=== PATIENT | female | born 1955 | race Caucasian/White ===

== ENCOUNTER 2019-03-19 19:18 | Observation (INO) | payer OTHER ==
[2019-03-19 20:27] LABS: Urine Blood 2+ (NEG); Urine Glucose NEGATIVE (NEG); Urine Protein 3+ (NEG); Urine Specific Gravity >1.030 (1.005-1.030)
[2019-03-19] MEDS ORDERED: ONDANSETRON 4 MG/2 ML VIAL ONE (20:50)
[2019-03-19] MEDS ORDERED: NA CHLORIDE 0.9% 1,000 ML ONE (20:50)
[2019-03-19] MEDS ORDERED: FAMOTIDINE 20 MG/2 ML VIAL IV ONE (20:51)
[2019-03-19 21:31] LABS: Protime INR 1.11
[2019-03-19 21:39] LABS: ALT/SGPT 22 U/L (12-78); AST/SGOT 15 U/L (15-37); Absolute Lymphocytes (CBC) 2.3 K/uL (0.7-4.9); Albumin 3.9 g/dL (3.4-5.0); Alkaline Phosphatase 152 U/L (45-117); BUN Blood Urea Nitrogen 11 mg/dL (7-18); Basophils % 0.4 % (0-1.3); Bicarbonate 22 mmol/L (21-32); Bilirubin Direct < 0.1 mg/dL (0-0.2); Bilirubin Total 0.2 mg/dL (0.2-1.0); Glucose Level 150 mg/dL (74-106); Hematocrit 28.9 % (36.0-45.0); Lipase 145 U/L (73-393); Lymphocytes % 11.1 % (15.3-44.8); MPV 8.1 fL (7.6-11.3); Magnesium 1.5 mg/dL (1.8-2.4); NT PRO-BNP 26 pg/mL (<125); Potassium 3.6 mmol/L (3.5-5.1); Protein, Total 6.7 g/dL (6.4-8.2); RBC Red Blood Cell Count 3.14 M/uL (3.86-4.86); Sodium Level 137 mmol/L (136-145); Troponin (Emerg Dept Use Only) < 0.02 ng/mL (0.0-0.045)
[2019-03-19] MEDS ORDERED: Magnesium Sulfate 2gm IVPB 2 G/50 ML BAG IV ONE (22:23)
--- NOTE | 2019-03-19 23:07 | EDPHYS ---
Physician Documentation [facility] Name: Jessica Bahena Age: 63 yrs Sex: Female : 1955 Arrival Date: 03/19/2019 Time: 19:21 Bed 8 Private MD: RAIN Physician Mehdi Rose HPI: 03/19 20:42 This 63 yrs old Female presents to ER via Ambulatory with complaints of james Nausea/Vomiting, Dizziness. 20:42 The patient presents to the emergency department with nausea, vomiting, diarrhea, that james is intermittent. Onset: The symptoms/episode began/occurred 2 day(s) ago. Possible causes: unknown. The symptoms are aggravated by nothing. The symptoms are alleviated by nothing. Associated signs and symptoms: Pertinent positives: diarrhea, nausea, vomiting. Severity of symptoms: At their worst the symptoms were moderate in the emergency department the symptoms are unchanged. The patient has not experienced similar symptoms in the past. Historical: - Allergies: 19:40 No Known Allergies; ak1 - Home Meds: 19:40 levothyroxine 75 mcg tab 1 tab once daily [Active]; metformin 1,000 mg Oral tab 1 tab 2 ak1 times per day [Active]; furosemide 20 mg Oral tab 1 tab once daily [Active]; pantoprazole 20 mg oral TbEC 1 tab once daily [Active]; Zofran (as hydrochloride) 8 mg Oral tab [Active]; promethazine 25 mg Oral tab 1 tab once daily [Active]; dexamethasone 4 mg Oral tab [Active]; Magnesium Oxide Oral [Active]; EMLA Topical [Active]; Probiotic oral oral [Active]; lisinopril 5 mg Oral tab 1 tab once daily [Active]; atorvastatin oral oral [Active]; chemo [Active]; - PMHx: 19:40 Diabetes - NIDDM; Hypothyroidism; Hyperlipidemia; High Cholesterol; breast cancer - tx ak1 at [facility]; - PSHx: 19:40 ; Hernia repair; Lithotripsy; port o cath; ak1 - Immunization history:: Adult Immunizations unknown. - Social history:: Smoking status: Patient/guardian denies using tobacco. - Ebola Screening: : No symptoms or risks identified at this time. ROS: 20:46 Constitutional: Negative for fever, chills, and weight loss, Eyes: Negative for injury, james pain, redness, and discharge, ENT: Negative for injury, pain, and discharge, Neck: Negative for injury, pain, and swelling, Cardiovascular: Negative for chest pain, palpitations, and edema, Respiratory: Negative for shortness of breath, cough, wheezing, and pleuritic chest pain, Back: Negative for injury and pain, : Negative for injury, bleeding, discharge, and swelling, MS/Extremity: Negative for injury and deformity, Psych: Negative for depression, anxiety, suicide ideation, homicidal ideation, and hallucinations, Allergy/Immunology: Negative for hives, rash, and allergies, Endocrine: Negative for neck swelling, polydipsia, polyuria, polyphagia, and marked weight changes, Hematologic/Lymphatic: Negative for swollen nodes, abnormal bleeding, and unusual bruising. 20:46 Abdomen/GI: Positive for abdominal pain, nausea, vomiting, diarrhea, abdominal cramps. 20:46 Skin: Positive for pallor. 20:46 Neuro: Positive for near syncope, weakness. Exam: 20:46 Constitutional: This is a well developed, well nourished patient who is awake, alert, james and in no acute distress. Head/Face: Normocephalic, atraumatic. Eyes: Pupils equal round and reactive to light, extra-ocular motions intact. Lids and lashes normal. Conjunctiva and sclera are non-icteric and not injected. Cornea within normal limits. Periorbital areas with no swelling, redness, or edema. ENT: Nares patent. No nasal discharge, no septal abnormalities noted. Tympanic membranes are normal and external auditory canals are clear. Oropharynx with no redness, swelling, or masses, exudates, or evidence of obstruction, uvula midline. Mucous membranes moist. Neck: Trachea midline, no thyromegaly or masses palpated, and no cervical lymphadenopathy. Supple, full range of motion without nuchal rigidity, or vertebral point tenderness. No Meningismus. Chest/axilla: Normal chest wall appearance and motion. Nontender with no deformity. No lesions are appreciated. Respiratory: Lungs have equal breath sounds bilaterally, clear to auscultation and percussion. No rales, rhonchi or wheezes noted. No increased work of breathing, no retractions or nasal flaring. Abdomen/GI: Soft, non-tender, with normal bowel sounds. No distension or tympany. No guarding or rebound. No evidence of tenderness throughout. Back: No spinal tenderness. No costovertebral tenderness. Full range of motion. Female : Normal external genitalia. MS/ Extremity: Pulses equal, no cyanosis. Neurovascular intact. Full, normal range of motion. Neuro: Awake and alert, GCS 15, oriented to person, place, time, and situation. Cranial nerves II-XII grossly intact. Motor strength 5/5 in all extremities. Sensory grossly intact. Cerebellar exam normal. Normal gait. Psych: Awake, alert, with orientation to person, place and time. Behavior, mood, and affect are within normal limits. 20:46 Cardiovascular: Rate: tachycardic, Rhythm: regular, Pulses: Pulses are 4+ in bilateral radial, brachial, femoral, popliteal, posterior tibial and and dorsalis pedis arteries.. Heart sounds: normal, Edema: is not appreciated, JVD: is not appreciated. 20:46 Skin: Appearance: Color: pale, abscess, not appreciated, cellulitis, is not appreciated, induration, is not appreciated. 20:46 Neuro: Orientation: is normal, appropriate for stated age, no acute changes, Mentation: is normal, appropriate for stated age, no acute changes, Memory: is normal, appropriate for stated age, no acute changes, Cranial nerves: grossly normal, is grossly normal based on the patient's age, no acute changes, Cerebellar function: is grossly normal, is grossly normal based on the patient's age, no acute changes, Motor: is normal, is grossly normal based on the patient's age, no acute changes, Gait: not tested. seizure activity, is not displayed by the patient. Vital Signs: 19:32 BP 99 / 63; Pulse 102; Resp 18; Temp 97.6(TE); Pulse Ox 99% on R/A; Weight 83.91 kg ak1 (R); Height 5 ft. 1 in. (154.94 cm) (R); Pain 0/10; 21:50 BP 115 / 52; Pulse 89; Resp 16 S; Pulse Ox 100% on R/A; bb 23:27 BP 108 / 56; Pulse 99; Resp 20 S; Pulse Ox 100% on R/A; bb 03/20 00:12 BP 118 / 52; Pulse 91; Resp 16 S; Temp 97.9(O); Pulse Ox 100% on R/A; bb 03/19 19:32 Body Mass Index 34.96 (83.91 kg, 154.94 cm) ak1 MDM: 03/19 20:16 Patient medically screened. [facility] 20:48 Data reviewed: vital signs, nurses notes, lab test result(s), EKG, radiologic studies, james plain films. 03/19 20:25 Order name: Urine Dipstick--Ancillary (enter results); Complete Time: 20:40 em1 03/19 20:42 Order name: Basic Metabolic Panel; Complete Time: 21:52 [facility] 03/19 20:42 Order name: CBC with Diff [facility] 03/19 20:42 Order name: LFT's; Complete Time: 21:52 [facility] 03/19 20:42 Order name: Magnesium; Complete Time: 21:52 [facility] 03/19 20:42 Order name: NT PRO-BNP; Complete Time: 21:52 [facility] 03/19 20:42 Order name: PT-INR; Complete Time: 21:52 [facility] 03/19 20:42 Order name: Troponin (emerg Dept Use Only); Complete Time: 21:52 [facility] 03/19 20:42 Order name: Lipase; Complete Time: 21:52 [facility] 03/19 20:42 Order name: Urine Culture [facility] 03/19 20:42 Order name: Type And Screen [facility] 03/19 21:52 Order name: Manual Differential [facility] 03/19 21:54 Order name: Blood Culture Adult (2) [facility] 03/19 21:54 Order name: Lactate; Complete Time: 22:57 [facility] 03/19 20:42 Order name: Abdomen Acute Series XRAY [facility] 03/19 21:54 Order name: Procalcitonin [facility] 03/19 23:01 Order name: CT Abd/Pelvis - Without Contrast [facility] 03/20 00:02 Order name: Comprehensive Metabolic Panel [facility] 03/20 00:02 Order name: Comprehensive Metabolic Panel [facility] 03/20 00:02 Order name: Protime (+INR) [facility] 03/20 00:02 Order name: Protime (+INR) [facility] 03/20 00:02 Order name: PTT, Activated Partial Thromb [facility] 03/20 00:03 Order name: PTT, Activated Partial Thromb [facility] 03/19 20:42 Order name: EKG; Complete Time: 20:43 [facility] 03/19 20:42 Order name: Cardiac monitoring; Complete Time: 21:19 [facility] 03/19 20:42 Order name: EKG - Nurse/Tech; Complete Time: : [facility] 03/19 20:42 Order name: IV Saline Lock; Complete Time: : [facility] 03/19 20:42 Order name: Labs collected and sent; Complete Time: : [facility] 03/19 20:42 Order name: O2 Per Protocol; Complete Time: : [facility] 03/19 20:42 Order name: O2 Sat Monitoring; Complete Time: : [facility] 03/20 00:02 Order name: CONS Pharmacy Consult EDMS 03/20 00:02 Order name: Regular EDMS Administered Medications: 20:05 Drug: Zofran 4 mg Route: IVP; Site: [facility]; 23:01 Follow up: Response: No adverse reaction bb 20:05 Drug: NS 0.9% 500 ml Route: IV; Rate: bolus; [facility]; 22:56 Follow up: IV Status: Completed infusion; IV Intake: 500ml [facility] 23:02 Follow up: IV Status: Completed infusion; IV Intake: 500ml 21:05 Drug: Pepcid 20 mg Route: IVP; Site: [facility] [place]; bb 23:01 Follow up: Response: No adverse reaction bb 22:21 Drug: Magnesium Sulfate 2 grams Route: IVPB; Infused Over: 2 hrs; [facility]; 23:20 Follow up: IV Status: Completed infusion; IV Intake: 100ml bb 22:56 Drug: NS 0.9% 1000 ml Route: IV; Rate: 125 ml/hr; Site: [facility] [place]; [facility] 03/20 01:56 Follow up: IV Status: Infusion continued upon admission; IV Intake: 250ml 03/19 23:24 Drug: levofloxacin 500 mg Volume: 100 ml; Route: IVPB; Infused Over: 60 mins; [facility]; 03/20 00:20 Follow up: IV Status: Completed infusion; IV Intake: 100ml 03/19 23:24 Drug: Flagyl 500 mg Volume: 100 ml; Route: IVPB; Rate: 200 ml/hr; Infused Over: 30 bb mins; Site: [facility] [place]; 03/20 00:00 Follow up: IV Status: Completed infusion; IV Intake: 100ml Disposition: 03/19/19 23:06 Hospitalization ordered by Himanshu Wilson for Inpatient Admission. Preliminary diagnosis are Abdominal tenderness, Vomiting, Diarrhea, unspecified, Elevated white blood cell count, Unspecified kidney failure, Type 2 diabetes mellitus, Weakness - breast cancer, chemotherapy, Volume depletion. - Bed requested for Telemetry/MedSurg (Inpatient). - Status is Inpatient Admission. bb - Condition is Fair. - Problem is new. - Symptoms have improved. UTI on Admission? No Signatures: Dispatcher [employer] EDMS Daniela Chino RN RN Mehdi Magallanes MD MD cha Ballard, Brenda RN RN Amelia Cavanaugh, RN RN tl1 Elena Sanchez RN RN ak1 Corrections: (The following items were deleted from the chart) 00:02 03/19 23:06 Hospitalization Ordered by Himanshu Wilson MD for Inpatient Admission. Preliminary diagnosis is Abdominal tenderness; Vomiting; Diarrhea, unspecified; Elevated white blood cell count; Unspecified kidney failure; Type 2 diabetes mellitus; Weakness - breast cancer, chemotherapy; Volume depletion. Bed requested for Telemetry/MedSurg (Inpatient). Status is Inpatient Admission. Condition is Fair. Problem is new. Symptoms have improved. UTI on Admission? No. james 03/20 01:57 00:02 03/19/2019 23:06 Hospitalization Ordered by Himanshu Wilson MD for Inpatient bb Admission. Preliminary diagnosis is Abdominal tenderness; Vomiting; Diarrhea, unspecified; Elevated white blood cell count; Unspecified kidney failure; Type 2 diabetes mellitus; Weakness - breast cancer, chemotherapy; Volume depletion. Bed requested for Telemetry/MedSurg (Inpatient). Status is Inpatient Admission. Condition is Fair. Problem is new. Symptoms have improved. UTI on Admission? No. mw
--- NOTE | 2019-03-19 23:07 | ER ---
Nurse's Notes [facility] Name: Jessica Bahena Age: 63 yrs Sex: Female : 1955 Arrival Date: 03/19/2019 Time: 19:21 Bed 8 Private MD: Diagnosis: Abdominal tenderness;Vomiting;Diarrhea, unspecified;Elevated white blood cell count;Unspecified kidney failure;Type 2 diabetes mellitus;Weakness-breast cancer, chemotherapy;Volume depletion Presentation: 03/19 19:32 Presenting complaint: Patient states: N/V/D abd pain since Sunday. pt started new ak1 chemo meds on Sunday. pt c/o leg swelling since Sunday. Transition of care: patient was not received from another setting of care. Onset of symptoms is unknown. Risk Assessment: Do you want to hurt yourself or someone else? Patient reports no desire to harm self or others. Initial Sepsis Screen: Does the patient meet any 2 criteria? No. Patient's initial sepsis screen is negative. Does the patient have a suspected source of infection? No. Patient's initial sepsis screen is negative. Care prior to arrival: None. 19:32 Method Of Arrival: Ambulatory ak1 19:32 Acuity: STAS 3 ak1 Triage Assessment: 19:32 General: Appears in no apparent distress. Behavior is calm, cooperative. Pain: ak1 Complains of pain in abdomen. GI: Reports lower abdominal pain, upper abdominal pain, bloating, diarrhea, nausea, vomiting, since Sunday. Historical: - Allergies: 19:40 No Known Allergies; ak1 - Home Meds: 19:40 levothyroxine 75 mcg tab 1 tab once daily [Active]; metformin 1,000 mg Oral tab 1 tab 2 ak1 times per day [Active]; furosemide 20 mg Oral tab 1 tab once daily [Active]; pantoprazole 20 mg oral TbEC 1 tab once daily [Active]; Zofran (as hydrochloride) 8 mg Oral tab [Active]; promethazine 25 mg Oral tab 1 tab once daily [Active]; dexamethasone 4 mg Oral tab [Active]; Magnesium Oxide Oral [Active]; EMLA Topical [Active]; Probiotic oral oral [Active]; lisinopril 5 mg Oral tab 1 tab once daily [Active]; atorvastatin oral oral [Active]; chemo [Active]; - PMHx: 19:40 Diabetes - NIDDM; Hypothyroidism; Hyperlipidemia; High Cholesterol; breast cancer - tx ak1 at [facility]; - PSHx: 19:40 ; Hernia repair; Lithotripsy; port o cath; ak1 - Immunization history:: Adult Immunizations unknown. - Social history:: Smoking status: Patient/guardian denies using tobacco. - Ebola Screening: : No symptoms or risks identified at this time. Screenin:33 Abuse screen: Denies threats or abuse. Nutritional screening: No deficits noted. bb Tuberculosis screening: No symptoms or risk factors identified. Fall Risk None identified. Assessment: 20:33 General: Appears in no apparent distress. Behavior is calm, cooperative. Pain: bb Complains of pain in abdomen. Neuro: Level of Consciousness is awake, alert, obeys commands, Oriented to person, place, time, situation. Cardiovascular: Heart tones S1 S2 present. Respiratory: Airway is patent Respiratory effort is even, unlabored, Breath sounds are clear bilaterally. GI: Abdomen is round Reports diarrhea. Derm: Skin is dry, Skin is pale, Skin temperature is warm. Musculoskeletal: Circulation, motion, and sensation intact. 21:30 Reassessment: No changes from previously documented assessment. Patient is alert, bb oriented x 3, equal unlabored respirations, skin warm/dry/pink. IV site intact, family at bedside. 22:03 Reassessment: lab called for blood cultures. bb 23:25 Reassessment: Patient is alert, oriented x 3, equal unlabored respirations, skin bb warm/dry/pink. pt requesting food and given snack per Dr Rose, pt's IV intact, patent with fluids infusing, notified of decision for admission pt verbalized understanding of and agrees to plan of care, awaiting room assignment. 03/20 00:13 Reassessment: Patient is alert, oriented x 3, equal unlabored respirations, skin bb warm/dry/pink. IV site intact, patent with fluids infusing. 00:18 Reassessment: report called to Beverly SPEAR for room 219. bb Vital Signs: 03/19 19:32 BP 99 / 63; Pulse 102; Resp 18; Temp 97.6(TE); Pulse Ox 99% on R/A; Weight 83.91 kg ak1 (R); Height 5 ft. 1 in. (154.94 cm) (R); Pain 0/10; 21:50 BP 115 / 52; Pulse 89; Resp 16 S; Pulse Ox 100% on R/A; bb 23:27 BP 108 / 56; Pulse 99; Resp 20 S; Pulse Ox 100% on R/A; bb 03/20 00:12 BP 118 / 52; Pulse 91; Resp 16 S; Temp 97.9(O); Pulse Ox 100% on R/A; bb 03/19 19:32 Body Mass Index 34.96 (83.91 kg, 154.94 cm) ak1 ED Course: 03/19 19:21 Patient arrived in ED. ds1 19:32 Arm band placed on Patient placed in waiting room, Patient notified of wait time. ak1 19:33 Triage completed. ak1 20:16 Mehdi Rose MD is Attending Physician. [facility] 20:32 Haven Acosta RN is Primary Nurse. 20:33 Patient has correct armband on for positive identification. Placed in gown. Bed in low bb position. Call light in reach. Side rails up X 1. Adult w/ patient. postmaster on. Pulse ox on. NIBP on. Warm blanket given. 20:33 Accessed Port-a-Cath. using accessed w/ # 20 Romo needle, ,sterile technique, per hospital protocol. Good blood return. Flushes easily. 21:18 Abdomen Acute Series XRAY In Process Unspecified. EDMS 21:48 Notified ED physician of a critical lab result(s). wbc of 20.5. 23:01 Himanshu Wilson MD is Hospitalizing Provider. [facility] 23:27 No provider procedures requiring assistance completed. Patient admitted, IV remains in bb place. 23:47 CT completed. Patient tolerated procedure well. Patient moved to CT via stretcher. Patient moved back from CT. 23:54 CT Abd/Pelvis - Without Contrast In Process Unspecified. EDMS Administered Medications: 20:05 Drug: Zofran 4 mg Route: IVP; Site: Port-a-cath; 23:01 Follow up: Response: No adverse reaction 20:05 Drug: NS 0.9% 500 ml Route: IV; Rate: bolus; Site: Port-a-cath; 22:56 Follow up: IV Status: Completed infusion; IV Intake: 500ml tl1 23:02 Follow up: IV Status: Completed infusion; IV Intake: 500ml bb 21:05 Drug: Pepcid 20 mg Route: IVP; Site: [facility]; 23:01 Follow up: Response: No adverse reaction bb 22:21 Drug: Magnesium Sulfate 2 grams Route: IVPB; Infused Over: 2 hrs; Site: [facility]; 23:20 Follow up: IV Status: Completed infusion; IV Intake: 100ml bb 22:56 Drug: NS 0.9% 1000 ml Route: IV; Rate: 125 ml/hr; Site: [facility]-a-[facility]; 1 03/20 01:56 Follow up: IV Status: Infusion continued upon admission; IV Intake: 250ml bb 03/19 23:24 Drug: levofloxacin 500 mg Volume: 100 ml; Route: IVPB; Infused Over: 60 mins; Site: [facility]; 03/20 00:20 Follow up: IV Status: Completed infusion; IV Intake: 100ml 03/19 23:24 Drug: Flagyl 500 mg Volume: 100 ml; Route: IVPB; Rate: 200 ml/hr; Infused Over: 30 bb mins; Site: [facility]; 03/20 00:00 Follow up: IV Status: Completed infusion; IV Intake: 100ml bb Intake: 03/19 22:56 IV: 500ml; Total: 500ml. tl1 23:02 IV: 500ml; Total: 1000ml. bb 23:20 IV: 100ml; Total: 1100ml. bb 03/20 00:00 IV: 100ml; Total: 1200ml. bb 00:20 IV: 100ml; Total: 1300ml. bb 01:56 IV: 250ml; Total: 1550ml. bb Outcome: 03/19 23:06 Decision to Hospitalize by Provider. james 23:27 Instructed on the need for admit. bb 03/20 00:17 Admitted to Tele accompanied by tech, via wheelchair, room 219, with chart, Report bb called to Beverly SPEAR Condition: stable 01:57 Patient left the ED. bb Signatures: Dispatcher [employer] EDMehdi Chavarria MD MD cha Hagler, Ervin eh Chretien, Felicia, RN RN Charlene Solorzano ds1 Haven Acosta RN RN bb Amelia Berg RN RN tl1 Laura, Elena, RN RN ak1
[2019-03-19] MEDS ORDERED: METRONIDAZOLE 500mg IVPB 500 MG/100 ML BAG IV ONE (23:10)
[2019-03-19] MEDS ORDERED: Levofloxacin500mg IV 500 MG/100 ML BAG IV ONE (23:10)
[2019-03-19 23:32] LABS: Blood Morphology Comment NOT SEEN (NOT SEEN); Platelet Estimate ADEQ
[2019-03-19] MEDS: NA CHLORIDE 0.9% 1,000 ML IV SCH (23:45)
[2019-03-19] MEDS ORDERED: ONDANSETRON 4 MG/2 ML VIAL IV PRN (23:56)
[2019-03-19] MEDS ORDERED: ACETAMINOPHEN 500 MG TAB PO PRN (23:56)
[2019-03-19] MEDS ORDERED: MORPHINE 2 MG/ML SYR IV PRN (23:56)
[2019-03-20] MEDS ORDERED: Levofloxacin500mg IV 500 MG/100 ML BAG IV SCH (01:00)
[2019-03-20] MEDS: NA CHLORIDE 0.9% 1,000 ML IV SCH ×2 (01:59→10:19)
[2019-03-20 02:08] VITALS: BMI 35.7
[2019-03-20 02:54] VITALS: O2SAT 100
[2019-03-20] MEDS ORDERED: PIPER/TAZO/NS 3.375gm 3.375 GM/100 ML BAG ONE (03:08)
[2019-03-20 05:53] LABS: Absolute Lymphocytes (CBC) 2.3 K/uL (0.7-4.9); Basophils % 0.4 % (0-1.3); Hematocrit 25.7 % (36.0-45.0); Lymphocytes % 13.8 % (15.3-44.8); MPV 7.7 fL (7.6-11.3); RBC Red Blood Cell Count 2.77 M/uL (3.86-4.86)
[2019-03-20 05:58] LABS: Protime INR 1.04
[2019-03-20] MEDS ORDERED: PIPER/TAZO/NS 3.375gm 3.375 GM/100 ML BAG IVPB SCH ×2 (06:00→11:00)
[2019-03-20 06:24] LABS: Albumin 3.3 g/dL (3.4-5.0); Bilirubin Total 0.2 mg/dL (0.2-1.0); Potassium 3.6 mmol/L (3.5-5.1)
--- NOTE | 2019-03-20 07:21 | RAD REPORT ---
EXAM DESCRIPTION: RAD - Abdomen Acute Series - 03/19/2019 9:16 pm CLINICAL HISTORY: ABD PAIN COMPARISON: Chest Single View dated 07/07/2017; CHEST SINGLE VIEW dated 11/02/2008; Abdomen Pelvis W o Contrast dated 03/19/2019 None. FINDINGS: Lungs are clear. Heart size and pulmonary vasculature are normal. No pleural effusion, pne umothorax or other acute cardiopulmonary process seen. Left-sided Port-A-Cath has been placed since 2017 study. No suspicious interval change. Small bowel loops are prominent but not dilated. No colon dilatation. Stomach is normal size. Phlebol iths are present in the pelvis. No bowel obstruction, free air or other acute findings. No suspicious calcifications. Lower lumbar degenerative changes are present. IMPRESSION: No acute finding on chest examination. No bowel obstruction, free air or emergent finding suspected. Small bowel pattern is prominent favoring mild ileus or gastroenteritis.
--- NOTE | 2019-03-20 10:08 | P.HP ---
Certification for Inpatient Patient admitted to: Inpatient With expected LOS: >2 Midnights Patient will require the following post-hospital care: None Practitioner: I am a practitioner with admitting privileges, knowledge of patient current condition, hospital course, and medical plan of care. Services: Services provided to patient in accordance with Admission requirements found in Title 42 Section 412.3 of the Code of Federal Regulations Patient History Date of Service: 03/20/19 Reason for admission: NEAR SYNCOPE History of Present Illness: PATIENT IS A 63-YEAR-OLD FEMALE CAME TO THE HOSPITAL AFTER FEELING FAINT. SHE WAS AT WORK AND HAD A NEAR SYNCOPAL EVENT. SHE HAS BEEN FEELING POORLY FOR THE LAST FEW WEEKS. SHE HAS BEEN GETTING TREATMENT FOR BREAST CANCER. SHE STATES THAT HER CANCER IS [place] POSITIVE, [place] POSITIVE, AND HERCEPTIN RECEPTOR POSITIVE. SHE HAS BEEN GETTING CHEMOTHERAPY BUT THIS WAS WHICH RECENTLY TO ADRIAMYCIN. SHE HAS RECEIVED TAXOL IN THE PAST. SHE STATES THAT HER BREAST CANCER HAS SHRUNK QUITE A BIT. SHE HAS BEEN FEELING SOME PALPITATIONS WELL. SHE WAS FEELING POORLY A FEW DAYS AGO AND WAS THINKING ABOUT COMING INTO THE ER BECAUSE OF CHEST PAIN AND LOWER BACK PAIN. HER SYMPTOMS FINALLY SUBSIDED SO SHE DECIDED TO STAY HOME. WHICH SHE BECAME LIGHTHEADED AT WORK SHE DECIDED TO COME INTO THE EMERGENCY ROOM FOR FURTHER WORKUP. SHE WILL GET A ECHOCARDIOGRAM. SHE SHOW ME PICTURES ON HER PHONE WERE SHE HAS HAD ANASARCA A WEEK AGO. THE FLUID HAS IMPROVED SOMEWHAT. WILL GET DOPPLERS OF HER LOWER EXTREMITIES WELL. SHE ALSO RECENTLY RECEIVED NEULASTA AFTER CHEMO WHICH IS PROBABLY THE CAUSE OF HER WHITE BLOOD CELL COUNT BEING ELEVATED. Allergies No Known Allergies Allergy (Verified 03/20/19 02:10) Home Medications: Atorvastatin Calcium 40 mg PO DAILY 03/20/19 Furosemide 20 mg PO DAILY PRN 03/20/19 Lactobacillus Combo No.10 [Probiotic] 1 cap PO DAILY 03/20/19 Levothyroxine Sodium 1 tab PO 0630 03/20/19 Lisinopril [Prinivil*] 1 tab PO DAILY 03/20/19 Magnesium Oxide [Magnesium] 1 tab PO DAILY 03/20/19 Metformin ER [Glucophage ER*] 1 gm PO BID 03/20/19 Multivit-Min/Folic Acid/Vit K1 [Multi For Her 50 Plus Softgel] 1 cap PO DAILY Ondansetron [Ondansetron Odt] 8 mg PO Q8H PRN 03/20/19 Pantoprazole Sodium [Protonix] 1 tab PO DAILY 03/20/19 Promethazine HCl 25 mg PO Q6H PRN 03/20/19 dexAMETHasone [Dexamethasone] 1 tab PO TID 03/20/19 - Past Medical/Surgical History Has patient received pneumonia vaccine in the past: No Diabetic: Yes -: Hypothyroidism -: Diabetes mellitus type 2, diet controlled -: History of hypertension -: Obesity -: C-sections x4 -: Umbilical hernia repair Psychosocial/ Personal History: Patient is . She has 4 children. She works several jobs - Family History Father Medical History: Diabetes - Social History Smoking Status: Never smoker Alcohol use: Yes CD- Drugs: No Caffeine use: Yes Place of Residence: Home Review of Systems 10-point ROS is otherwise unremarkable Physical Examination - Vital Signs Temperature: 97.2 F Blood Pressure: 97/53 Pulse: 83 Respirations: 14 Pulse Ox (%): 100 - Physical Exam General: Alert, In no apparent distress, Oriented x3 HEENT: Atraumatic, PERRLA, Mucous membr. moist/pink, EOMI, Sclerae nonicteric Neck: Supple, 2+ carotid pulse no bruit, No LAD, Without JVD or thyroid abnormality Respiratory: Clear to auscultation bilaterally, Normal air movement Cardiovascular: Regular rate/rhythm, Normal S1 S2, No rubs, No murmurs Gastrointestinal: Normal bowel sounds, Soft and benign, Non-distended, No tenderness Musculoskeletal: No clubbing, No swelling, No tenderness Integumentary: No rashes Neurological: Normal gait, Normal speech, Normal strength at 5/5 x4 extr, Normal tone, Sensation intact, Cranial nerves 3-12 intact, Normal affect Lymphatics: No axilla or inguinal lymphadenopathy - Studies Laboratory Data (last 24 hrs) 03/19/19 20:30: PT 13.1 H, INR 1.11 03/19/19 20:30: WBC 20.5 H*, Hgb 10.1 L, Hct 28.9 L, Plt Count 230 03/19/19 20:30: Sodium 137, Potassium 3.6, BUN 11, Creatinine 1.46 H, Glucose 150 H, Magnesium 1.5 L, Total Bilirubin 0.2, AST 15, ALT 22, Alkaline Phosphatase 152 H, Lipase 145 Microbiology Data (last 24 hrs): 03/19/19 22:11 Blood - Blood Anaerobic Blood Culture - Final 03/19/19 22:19 Blood - Blood Anaerobic Blood Culture - Final Assessment & Plan - Plan ASSESSMENT: 1. NEAR SYNCOPE 2. LEUKOCYTOSIS-MOST LIKELY SECONDARY TO NEULASTA 3. HISTORY OF BREAST CANCER-ER, [place], HeR POSITIVE 4. LOWER EXTREMITY EDEMA 5. HISTORY OF ADRIAMYCIN TREATMENTS 6. HISTORY OF HYPERTENSION/DIABETES TYPE 2/HYPOTHYROIDISM PLAN: 1. IV HYDRATION 2. IV ANTIBIOTICS PROPHYLACTICALLY 3. ECHOCARDIOGRAM AND VENOUS DOPPLER 4. CT SCAN RESULTS PENDING 5. ONCOLOGY CONSULTATION-PATIENT WANTING 2ND OPINION 6. STRICT BLOOD PRESSURE AND BLOOD SUGAR CONTROL 7. GI AND DVT PROPHYLAXIS Discharge Plan: Home Plan to discharge in: Greater than 2 days - Advance Directives Does patient have a Living Will: No Does patient have a Durable POA for Healthcare: No - Code Status/Comfort Care Code Status Assessed: Yes Code Status: Full Code Critical Care: No Time Spent Managing PTS Care (In Minutes): 45
--- NOTE | 2019-03-20 11:29 | ECHO ---
HEIGHT: 5 ft 1 in WEIGHT: 189 lb 3.2 oz DATE OF STUDY: 03/20/[address]: Himanshu Wilson MD 2-DIMENSIONAL: YES M.MODE: YES DOPPLER: YES COLOR FLOW: YES TDS: YES PORTABLE: NO DEFINITY: NO BUBBLE STUDY: NO DIAGNOSIS: CONGESTIVE HEART FAILURE CARDIAC HISTORY: CATHERIZATION: NO SURGERY: NO PROSTHETIC VALVE: NO PACEMAKER: NO MEASUREMENTS (cm) DIASTOLIC (NORMALS) SYSTOLIC (NORMALS) IVSd 0.8 (0.6-1.2) LA Diam 2.7 (1.9-4.0) LVEF 58% LVIDd 3.2 (3.5-5.7) LVIDs 2.3 (2.0-3.5) %FS 29% LVPWd 0.9 (0.6-1.2) Ao Diam 2.5 (2.0-3.7) 2 DIMENSIONAL ASSESSMENT: RIGHT ATRIUM: NORMAL LEFT ATRIUM: NORMAL RIGHT VENTRICLE: NORMAL LEFT VENTRICLE: NORMAL TRICUSPID VALVE: NORMAL MITRAL VALVE: NORMAL PULMONIC VALVE: NORMAL AORTIC VALVE: NORMAL PERICARDIAL EFFUSION: NONE AORTIC ROOT: NORMAL LEFT VENTRICULAR WALL MOTION: NORMAL. DOPPLER/COLOR FLOW: MILD TRICUSPID REGURGITATION NORMAL RIGHT VENTRICULAR SYSTOLIC PRESSURE. COMMENTS: NORMAL 2D ECHO WITH DOPPLER. NO WALL MOTION ABNORMALITY. NO EFFUSION. MILD TRICUSPID REGURGITATION TECHNOLOGIST: JUANCARLOS BARBER
--- NOTE | 2019-03-20 12:03 | RAD REPORT ---
EXAM DESCRIPTION: US - Extrem Venous W Compress Andre - 03/20/2019 8:29 am CLINICAL HISTORY: Leg pain and swelling COMPARISON: None. TECHNIQUE: Real-time sonographic evaluation of the bilateral lower extremity common femoral, superfi cial femoral, popliteal and posterior tibial veins was performed. FINDINGS: Normal compressibility, flow augmentation, phasic flow and spontaneous flow are identified in the left and right lower extremity common femoral, superficial femoral, popliteal and posterior t ibial veins. No intraluminal filling defects seen. IMPRESSION: No DVT in either lower extremity.
--- NOTE | 2019-03-20 12:49 | RAD REPORT ---
EXAM DESCRIPTION: CT - Abdomen Pelvis Wo Contrast - 03/20/2019 3:23 am COMPARISON: None. TECHNIQUE: CT ABDOMEN PELVIS WITHOUT IV CONTRAST on 03/19/2019 11:01 PM CDT This exam was performed according to our departmental dose-optimization program, which includes autom ated exposure control, adjustment of the mA and/or kV according to patient size and/or use of iterati ve reconstruction technique. FINDINGS: Lower lungs are clear. Abdomen: The liver is normal in appearance. There is no biliary dilatation. Gallbladder is normal in appearance. The pancreas and spleen are normal in appearance. The adrenal glands and kidneys are unre markable. Abdominal aorta is normal in course and caliber without aneurysm. There is no free air. There is no r etroperitoneal adenopathy. Pelvis: There is no bowel obstruction. Urinary bladder is unremarkable. There is no free fluid. Uteru s is normal in size. Appendix is normal. Skeleton: There are no acute osseous findings. No suspicious bony lesions. IMPRESSION: No acute inflammatory process. No renal or ureteral calculi. Electronically signed by: Jameson Dunaway MD 03/20/2019 12:16 AM CDT Due to temporary technical issues with the PACS/Fluency reporting system, reports are being signed by the in house radiologist as a courtesy to ensure prompt reporting. The interpreting radiologist is f ully responsible for the content of the report.
[2019-03-20 15:13] VITALS: TEMP 98
[2019-03-20 17:56] VITALS: BP 123/58
[2019-03-20] MEDS ORDERED: HEPARIN 500 UNIT/5 ML SYR IV SCH (19:00)
--- NOTE | 2019-03-21 08:43 | EKG ---
Test Date: 2019-03-19 Test Time: 20:48:59 Commanding [employer] Traffic [employer]: [place] MEASUREMENT RESULTS: Intervals: Rate: 84 MO: 136 QRSD: 82 QT: 358 QTc: 423 Michael: P: 57 MO: 136 QRS: 21 T: 39 INTERPRETIVE STATEMENTS: Normal sinus rhythm Normal ECG Compared to ECG 07/07/2017 10:10:47 No significant changes Electronically Signed On 03-21-19 08:41:35 CDT by Doug Escamilla
== END 2019-03-20 19:09 | disposition home or self-care (01) ==
LOC: ER 19:18 → INTOOBSV 03-20 00:19 → ERHOLD 03-20 00:19 → 2ND 03-20 00:21
PROVIDERS: ADMIT Hospitalist; ATTEND Family Medicine
DX: R55 Syncope and collapse (principal); C50.919 Malignant neoplasm of unspecified site of unspecified female breast; E11.9 Type 2 diabetes mellitus without complications; E03.9 Hypothyroidism, unspecified; I10 Essential (primary) hypertension; E66.9 Obesity, unspecified; Z68.35 Body mass index [BMI] 35.0-35.9, adult
CPT/HCPCS: 96365; 96367; 96361; 96368; 93005; 93306; 87040 ×2; 87088; 85025 ×2; 87086; 80048; 36415; 86900; 83735; 86850; 85610 ×2; 86901; 80076; 83605; 85730; 81003; 84484; 83690; 80053; 84145; 86038; 86225; 83880; 74176; 74022; 93970; 96375; 99285; J2543 ×2; J3475; J1642; J7030 ×3; J2405; G0378 ×2

== ENCOUNTER 2019-08-29 18:39 | Emergency (ER) | payer OTHER ==
--- OUTSIDE RECORDS SUMMARY | 2019-08-29 18:42 | XMS REPORT ---
:1955 Author Organization [employer] Care Team Providers Name Role Phone Rios Gallego Provider Role Unavailable Allergies No Known Allergies Problems Problem Type Condition Code Onset Dates Condition Status Problem Type 2 diabetes mellitus without E11.9 Active complication, without long-term current use of insulin Problem Breast lump N63.0 Active Problem History of renal calculi Z87.442 Active Problem Encounter for screening mammogram Z12.31 Active for breast cancer Problem Encounter for gynecological Z01.419 Active examination without abnormal finding Medications No Known Medications Results No Known Results Summary Purpose [employer] Submission
--- OUTSIDE RECORDS SUMMARY | 2019-08-29 18:42 | XMS REPORT ---
:1955 Author Organization [employer] Care Team Providers Name Role Phone Kevin Marta Provider Role Unavailable Allergies, Adverse Reactions, Alerts Substance Reaction Event Type N.K.D.A. Info Not Available Non Drug Allergy Problems Problem Type Condition Code Onset Dates Condition Status Assessment Tooth abscess K04.7 Active Problem Type 2 diabetes mellitus without E11.9 Active complication, without long-term current use of insulin Problem Breast lump N63.0 Active Problem History of renal calculi Z87.442 Active Assessment Left facial swelling R22.0 Active Problem Encounter for screening mammogram Z12.31 Active for breast cancer Problem Encounter for gynecological Z01.419 Active examination without abnormal finding Medications Medication Code Code Instructions Start End Status Dosage System Date Date Probiotic [facility] 32846-27999 Active not defined Magnesium NDC 0 Active not defined Vitamin B-12 [facility] 53840-41279 Active not defined Amoxicillin [facility] [id number] 875 MG Orally Jun 21, Active 1 tablet BID 2017 Oxybutynin [facility] [address]-52 Active not Chloride ER defined Metformin HCl [facility] [address]-67 Orally Once a Active not day defined Womens [facility] 60853-73080 Active not Multivitamin defined Results No Known Results Summary Purpose [employer] Submission
--- OUTSIDE RECORDS SUMMARY | 2019-08-29 18:42 | XMS REPORT ---
:1955 Author Organization [employer] Care Team Providers Name Role Phone Rios Gallego Provider Role Unavailable Allergies No Known Allergies Problems Problem Type Condition Code Onset Dates Condition Status Assessment Breast mass N63.0 Active Problem History of renal calculi Z87.442 Active Problem Type 2 diabetes mellitus without E11.9 Active complication, without long-term current use of insulin Problem Breast mass N63.0 Active Problem Encounter for gynecological Z01.419 Active examination without abnormal finding Problem Breast lump N63.0 Active Problem Encounter for screening mammogram Z12.31 Active for breast cancer Medications No Known Medications Results No Known Results Summary Purpose [employer] Submission
--- OUTSIDE RECORDS SUMMARY | 2019-08-29 18:42 | XMS REPORT ---
:1955 Author Organization [employer] Care Team Providers Name Role Phone Rios Gallego Provider Role Unavailable Allergies No Known Allergies Problems Problem Type Condition Code Onset Dates Condition Status Problem History of renal calculi Z87.442 Active Problem Type 2 diabetes mellitus without E11.9 Active complication, without long-term current use of insulin Problem Breast mass N63.0 Active Problem Encounter for gynecological Z01.419 Active examination without abnormal finding Problem Breast lump N63.0 Active Problem Encounter for screening mammogram Z12.31 Active for breast cancer Medications No Known Medications Results No Known Results Summary Purpose [employer] Submission
--- OUTSIDE RECORDS SUMMARY | 2019-08-29 18:42 | XMS REPORT ---
:1955 Author Organization [facility] Address [address] [place] [address] Care Team Providers Name Role Phone NINI TREJO ROBBIN Unavailable Unavailable RIMWILFRED, JESIAFFAR Unavailable Unavailable Problems This patient has no known problems. Allergies, Adverse Reactions, Alerts This patient has no known allergies or adverse reactions. Medications This patient has no known medications. 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 This exam was performed according to our departmental dose-optimization program, which includes automated exposure control, adjustment of the mA and/or kV according to patient size and/or use of interactive reconstruction technique. Patient is status post right mastectomy. Surgical clips are seen in the right anterior chest wall. Heart is normal in size. Great vessels are unremarkable. No adenopathy in the mediastinum or perihilar region. Trachea and mainstem bronchi are patent. A 5 mm nodule is seen in the right upper lobe. A 5 mm and a 7 mm nodules are seen in the left lower lobe. A cluster of small 1 mm nodules are seen in the right apex. No mass lesion or airspace disease is noted. No bronchiectasis is present. No pleural effusion or pleural based mass is seen. Liver and spleen are normal in size. A 5 mm hypodense lesion seen in the segment 4 of the liver. Gallbladder is contracted. No gallstone or biliary dilatation is noted. Pancreas and adrenals are unremarkable. Both kidneys are normal in size and functioning with bilateral excretion. No hydronephrosis, hydroureter, or urolithiasis is noted. The opacified small and large bowel are unremarkable. Appendix is normal in caliber. Uterus and ovaries are unremarkable. The urinary bladder is contracted. No mass, adenopathy or ascites is present in the abdomen or pelvis. No osteolytic or osteoblastic lesions seen in the dorsal spine, scapula, sternum, ribs, or pelvis. Impression: 1. Status post right mastectomy.2. Nodular lesions in the right upper and left lower lobe. Recommend follow-up with repeat CT of the chest in 6 months.3. Nonspecific subcentimeter hypodense lesion in the liver. Otherwise unremarkable CT of the abdomen and pelvis. 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 This exam was performed according to our departmental dose-optimization program, which includes automated exposure control, adjustment of the mA and/or kV according to patient size and/or use of interactive reconstruction technique. Patient is status post right mastectomy. Surgical clips are seen in the right anterior chest wall. Heart is normal in size. Great vessels are unremarkable. No adenopathy in the mediastinum or perihilar region. Trachea and mainstem bronchi are patent. A 5 mm nodule is seen in the right upper lobe. A 5 mm and a 7 mm nodules are seen in the left lower lobe. A cluster of small 1 mm nodules are seen in the right apex. No mass lesion or airspace disease is noted. No bronchiectasis is present. No pleural effusion or pleural based mass is seen. Liver and spleen are normal in size. A 5 mm hypodense lesion seen in the segment 4 of the liver. Gallbladder is contracted. No gallstone or biliary dilatation is noted. Pancreas and adrenals are unremarkable. Both kidneys are normal in size and functioning with bilateral excretion. No hydronephrosis, hydroureter, or urolithiasis is noted. The opacified small and large bowel are unremarkable. Appendix is normal in caliber. Uterus and ovaries are unremarkable. The urinary bladder is contracted. No mass, adenopathy or ascites is present in the abdomen or pelvis. No osteolytic or osteoblastic lesions seen in the dorsal spine, scapula, sternum, ribs, or pelvis. Impression: 1. Status post right mastectomy.2. Nodular lesions in the right upper and left lower lobe. Recommend follow-up with repeat CT of the chest in 6 months.3. Nonspecific subcentimeter hypodense lesion in the liver. Otherwise unremarkable CT of the abdomen and pelvis. Signed: Virgilio Salgadoeport Verified Date/Time: 06/09/2019 14:16:37 Reading Location: [facility] Body Reading Room UE EXAM 2019-05-20 13:19:00 Surgical Pathology Report Case: [id number] Authorizing Provider: Nini Trejo, Collected: 05/13/2019 1219 MD Ordering Location: [facility] Received: 05/13/2019 1232 SERVICES Pathologist: Latesha Hernández MD Specimens: A) - Breast, Right, RIGHT MASTECTOMY WITH LOW AXILLARY NODE short stitch superior long lateral for margin B) - Lymph Node, [place], Right Axilla, Right sentinel node 325 (neoprobe) 6491 (sentimag) C) - Breast, Right, Right axilla non-sentinel node A. BREAST, RIGHT, MASTECTOMY WITH LOW AXILLARY NODE DISSECTION: - NO RESIDUAL CARCINOMA SEEN - TUMOR BED IDENTIFIED - ASSOCIATED WITH CALCIFICATIONS - INCLUDING STROMAL CALCIFICATIONS - AND OBLITERATED DUCTS WITH CALCIFICATIONS - BIOPSY SITE CHANGES (CLIP X 1) SEEN - COMPLETE PATHOLOGIC RESPONSE - USUAL DUCTAL HYPERPLASIA, FOCAL - FOCAL COLUMNAR CELL CHANGES - FOCAL FLAT EPITHELIAL ATYPIA - SCLEROSING ADENOSIS - FOCAL FIBROADENOMATOID CHANGES - INTRADUCTAL PAPILLOMA WITH CALCIFICATIONS - INVOLVING SUBAREOLAR LACTIFEROUS DUCTS - BENIGN BREAST TISSUE ASSOCIATED MICROCALCIFICATIONS - NIPPLE AND SKIN, UNREMARKABLE - LYMPH NODES, AXILLARY DISSECTION - SIX LYMPH NODES, NEGATIVE FOR CARCINOMA (0/6) - ONE LYMPH NODE WITH BIOPSY SITE CHANGES (CLIP X 1) - AND EXTENSIVE TREATMENT RELATED FIBROSIS B. LYMPH NODE, RIGHT AXILLA, SENTINEL NODE, 325, 3395, BIOPSY: - ONE LYMPH NODE, NEGATIVE FOR CARCINOMA (0/1) - FOCAL FIBROSISC. LYMPH NODES, RIGHT AXILLA, NON-SENTINEL, AXILLARY DISSECTION; - SEVEN LYMPH NODES, NEGATIVE FOR CARCINOMA (0/7) - ONE WITH TREATMENT RELATED FIBROSIS Signing Pathologist Direct Phone Line: [phone] signed by Latesha Hernández MD on 05/20/2019 at 1:19 PMTUMOR STAGING (PATHOLOGY) S/P NEOADJUVANT THERAPYAnatomic site of tumor : Right breastHistologic type : No residual carcinomaHistologic grade : No residual carcinomaTumor size : No residual carcinomaPrimary tumor (T) : [id number] node (N) : [id number] grouping : complete pathologic responseMargins : Negative LYMPH NODE SUMMARYTotal # of sentinel lymph nodes : 1Total # of non-sentinel lymph nodes : 13Total # of positive sentinel lymph nodes : 0Total # of positive non-sentinel lymph nodes : 0INVASIVE CARCINOMA OF THE BREAST: Resection (Breast.Invasive - All Specimens)8th Edition - Protocol posted: 08/21/2018CLINICAL Clinical History: Prior presurgical (neoadjuvant) therapy for this diagnosis of invasive carcinoma SPECIMEN Procedure: Total mastectomy Specimen Laterality: Right TUMOR Tumor Site: Upper outer quadrant Clock Position of Tumor Site: 9 o'clock Histologic Type: No residual invasive carcinoma Histologic Grade (Rios Histologic Score): No residual invasive carcinoma Tumor Size: No residual invasive carcinoma Ductal Carcinoma In Situ (DCIS): Not identified Tumor Extent: Lymphovascular Invasion: Not identified Dermal Lymphovascular Invasion: Not identified Microcalcifications: Present in non-neoplastic tissue Treatment Effect in the Breast: No residual invasive carcinoma is present in the breast after presurgical therapy Treatment Effect in the Lymph Nodes: No lymph node metastases. Fibrous scarring, possibly related to prior lymph node metastases with pathologic complete response MARGINSLYMPH NODES Regional Lymph Nodes: Uninvolved by tumor cells Number of Lymph Nodes Examined: 14 Number of [place] Nodes Examined: 1 PATHOLOGIC STAGE CLASSIFICATION (pTNM, AJCC 8th Edition) TNM Descriptors: y (post-treatment) Primary Tumor (pT): pT0 Regional Lymph Nodes (pN): Category (pN): pN0 ADDITIONAL FINDINGS Additional Pathologic Findings: Usual ductal hyperplasia, intraductal papilloma, sclerosing adenosis A,C. 63896 x 1, 79726 x 1B. 00580 x 1Malignant neoplasm of right female breast, unspecified estrogen receptor status, unspecified site of breast A. Breast, right with description of right mastectomy with low axillary lymph node, short stitch superior, long stitch lateral for margin. B. Lymph node, sentinel right axilla, right sentinel node 325 (neoprobe) 6491 (sentimag). C. Breast, right tissue, right axilla non-sentinel node A. Received labeled with the patient's name and MRN as "right breast" with description of "right mastectomy with low axillary node, short stitch superior, long stitch lateral for margin" is a 669 gm, 19 x 17 x 3 cm mastectomy specimen with attached axillary tail. The axillary tail measures 8.5 x 4 x 1.5 cm. The anterior surface of the specimen is covered by a elliptical skin measuring 16 x 9 cm. The areola measures 4 x 3.5 cm, and nipple measures 1.5 x 1.5 x 0.5 cm and is everted. The specimen is inked and serially sectioned from medial to lateral into 15 consecutively ordered slices. There is a 1.3 x 2.5 x 1.7 cm, irregular, firm, mims-white mass in slices 7 to 10. The mass is located 2.5 cm from the superficial superior, 5 cm from superficial inferior and 1.5 cm from deep margins. There is a ribbon clip associated with the mass in slice #9. The mass is located in a fibrous possible tumor bed that measures 2.5 x 3.5 x 3.5 cm and is located 0.5 cm from deep, 1 cm from superficial superior, and 2.5 cm from superficial inferior margins. The rest of the breast parenchyma is 90% adipose tissue and 10% fibrous tissue. Sectioning through the axillary tail reveals multiple lymph nodes. The lymph nodes measure 0.3 up to 5 cm. There is a coil clip associated with 1.5 cm lymph node that is grossly fibrotic. A [employer]da [employer] Board Assembler is also identified. Production Supervisor sections are submitted. Lymph nodes are submitted entirely.A1, customer counter representative sections of medial margin, perpendicular sections; A2, customer counter representative section of slice #4; A3, customer counter representative section of slice #5; A4, A5, customer counter representative sections of slice #6; A6, nipple; A7-A16, customer counter representative sections of slice #7 (A7 and A8 are mirror sections, A7 and A8 contain tumor); A16-A20, (A16 contains tumor); A26-A34, customer counter representative sections of slice #9 (A26 and A27 mirror sections, A26 and A27 contain tumor, A26 is associated with clip); A35-A41, customer counter representative sections of slice #10; A42 and A43, customer counter representative sections of slice #11; A44, customer counter representative section of slice #12; A45 and A46, one lymph node, bisected, associated with clip; A47 and A48, one lymph node bisected in each; A49, one lymph node, bisected; A50, four possible lymph nodes; A51, soft tissue. SM/ewB. Received in formalin labeled with the patient's name, accession number and "lymph node, sentinel, right axilla" is a 1 cm in greatest dimension irregular portion of adipose tissue measuring 1.5 cm in greatest dimension. Attached to the adipose tissue is a 0.6 cm in greatest dimension, mims-pink, firm, possible lymph node. The specimen submitted in toto in cassette B1.C. Received in formalin labeled with the patient's name, accession number and "breast, right" is a 4.5 x 4.5 x 1.5 cm aggregate of fibrofatty tissue. Within the fibrofatty tissue, multiple possible lymph nodes are identified ranging from 0.2 to 1 cm in greatest dimension. The cut surface of the largest possible node displays blue dye. There are no clips identified.The nodes are submitted in their entirety in cassette C1, two whole possible nodes; C2, one bisected possible node; C3, two whole possible nodes; C4, two whole possible nodes. KM/Uriah. BREAST, RIGHT, MASTECTOMY: - MARGINS ARE NEGATIVE. SEPARATE CLIP AND LYNDA SHELLFISH FARMING SUPERVISOR IN AXILLARY TAILResults were reported by Dr. Hernández to Dr. Trejo at 12:50 P.M. A to [facility], [facility] of [facility]ology, [address] [place] [address], [place] [address], POCT-GLUCOSE METER 2019-05-13 15:09:00 Test Item Value Reference Range Comments POC-GLUCOSE METER (BEAKER) 166 mg/dL 70-110 : Notified RN/MD: TESTED AT [facility] 67[address] (test sryq=6487) [facility], [address]: Grease Rack Worker/Senior It Specialist HI=[id number] for ROEL BLACK SENTINEL NODE INJECTION, [id number] 10:01:00Reason for exam:-> right breast cancerFINAL REPORT PROCEDURE: SENTINEL NODE LOCALIZATION - NON IMAGING INDICATION: Right breast cancer PROTOCOL: A total of 1.2 mCi of Tc-99m tilmanocept was injected in the right breast by the applied technologist. One aliquot was injected subcutaneously inthe subareolar area, and one aliquot was injected intradermally at the 9 o'clock position. IMPRESSION: Radiopharmaceutical injection for intraoperative sentinel node localization. Signed: Joby Dee Verified Date/Time: 05/13/2019 10:01:55 Reading Location: [address] MedReading Room POCT-GLUCOSE [id number] 09:23:00 Test Item Value Reference Range Comments POC-GLUCOSE METER (BEAKER) 110 mg/dL 70-110 : TESTED AT [address] (test yxag=1844) [facility], [facility]: Grease Rack Worker/Senior It Specialist [id number] for KAHLIL MARTINEZ RAD, CHEST, 2 [id number] 16:23:00Reason for Exam:->coughFINAL REPORT EXAMINATION: RAD, CHEST, 2 VIEWS INDICATION: cough COMPARISON: None FINDINGS:TUBES and LINES: Left anterior chest port catheter LUNGS: Lungs are well inflated. Mild perihilar peribronchial hazy opacity could be due to bronchitis There is noevidence of pneumonia or pulmonary edema. PLEURA: No pleural effusion or pneumothorax. HEART AND MEDIASTINUM: The cardiomediastinal silhouette is unremarkable. BONES AND SOFT TISSUES: No acute osseous lesion. Soft tissues are unremarkable. UPPER ABDOMEN: No free air under the diaphragm. IMPRESSION: Mild perihilar peribronchial hazy opacity could be due to bronchitis Signed: Naif Rodriguez Verified Date/Time: 01/20/2019 16:23:52 POCT-GLUCOSE [id number] 07: 34:00 Test Item Value Reference Range Comments POC-GLUCOSE METER (BEAKER) 99 mg/dL 70-110 TESTED AT [facility] [address] (test fook=7414) [facility] [address] ANG, CV ACCESS, [id number] 19:48:00Reason for Exam:->c50.811FINAL REPORT Left chest port insertion History: Right breast cancer. Modality: Sonography and fluoroscopy. Sedation: Versed 1.0 mg and fentanyl 50 mcg given intravenously for conscious sedation. Vital signs were monitored throughout the procedure by a nurse, and remained stable. Physician intra-service time was 20 minutes. Physical Sciences Instructor: Cameron Meléndez MD Director Of Training: OFELIA Joe Approach: Left external jugular vein Estimated blood loss: < 5 cc. Specimen: None. Fluoroscopy Time: 0.5 min.Reference Air Kerma (Ka,r): 2.7 mGy. Technique: Informed written consent was obtained. Discussion of risks, benefits, and alternatives were made with the patient. The patient expressed understanding and agreed to proceed. A universal timeout was performed prior to starting the procedure. All elements maximal sterile barrier technique was utilized for this procedure, including utilization of sterile scrub solution for skinprep, a large sterile sheet to cover the areas of the patient that were not prepped, and hand hygiene, mask, head covering, and sterile gown for performing radiologist and scrub technologist. The skin was anesthetized with 2% lidocaine. Ultrasound evaluation showed a patent and compressible left external jugular vein, which was punctured under direct real-time ultrasound guidance with a micropuncture needle. An ultrasound image was saved to PACS. A 0.018 inch wire was placed through the needle into the right atrium. A 4 Danish micropuncture sheath was placed. A subcutaneous tunnel and pocket were created in the left anterior chest wall by blunt dissection. The pocket was flushed with antibiotic solution. A 6F Bard port was placed within the pocket and the catheter brought through the tunnel. The catheter was cut at 25 centimeters. A peel-away sheath was placed in the left external jugular vein and the catheter was advanced through the sheath, with its distal tip terminating in the cavoatrial junction. The peel-away sheath was removed. The port was flushed and aspirated easily following placement. The skin incision was closed with 3-0 running subcuticular Monocryl and Steri-Strips. Thesmall jugular incision site was closed using Steri-Strips. The patient tolerated the procedure welland left the department in the same condition. Results: Spot radiograph of the chest demonstrates the new left chest Port -A-Cath to lie in the expected position with its tip overlying the cavoatrial junction. Impression: Successful, uncomplicated placement of a left chest port. The port is ready for immediate use. Signed: Cameron Meléndez MDReport Verified Date/Time: 11/25/2018 19:48:03 Reading Location: [place] [id number] Angio Body Reading Room Electronically signed by: CAMERON MELÉNDEZ on 2018 07:48 PMPROTHROMBIN [id number] 12:29:00 Test Item Value Reference Range Comments PROTIME (BEAKER) (test ofog=743) 15.6 seconds 11.9-14.2 INR (BEAKER) (test ryuu=027) 1.3 <=5.9 Effective 11/20/2018: PT Reference Range ChangeNew: 11.9-14.2 Previous: 11.7- 14.7RECOMMENDED COUMADIN/WARFARIN INR THERAPY RANGESSTANDARD DOSE: 2.0-3.0 Includes: PROPHYLAXIS for venous thrombosis, systemic embolization; TREATMENT for venous thrombosis and/or pulmonary embolus.HIGH RISK: Target INR is2.5-3.5 for patients wiht mechanical heart valves.[id number] 12:29:00 Test Item Value Reference Range Comments PARTIAL THROMBOPLASTIN TIME (BEAKER) (test 31.2 seconds 22.5-36.0 vmny=538) CBC W/PLT COUNT & AUTO [id number] 12:19:00 Test Item Value Reference Range Comments WHITE BLOOD CELL COUNT (BEAKER) (test huwn=496) 8.4 K/ L 3.5-10.5 RED BLOOD CELL COUNT (BEAKER) (test vzbc=969) 4.36 M/ L 3.93-5.22 HEMOGLOBIN (BEAKER) (test ujzj=511) 12.8 GM/DL 11.2-15.7 HEMATOCRIT (BEAKER) (test zdli=056) 39.6 % 34.1-44.9 MEAN CORPUSCULAR VOLUME (BEAKER) (test iokc=637) 90.8 fL 79.4-94.8 MEAN CORPUSCULAR HEMOGLOBIN (BEAKER) (test 29.4 pg 25.6-32.2 adrg=478) MEAN CORPUSCULAR HEMOGLOBIN CONC (BEAKER) (test 32.3 GM/DL 32.2-35.5 otly=543) RED CELL DISTRIBUTION WIDTH (BEAKER) (test 12.2 % 11.7-14.4 pvpg=115) PLATELET COUNT (BEAKER) (test lfqd=875) 296 K/CU MM 150-450 MEAN PLATELET VOLUME (BEAKER) (test wxed=396) 9.0 fL 9.4-12.3 NUCLEATED RED BLOOD CELLS (BEAKER) (test 0 /100 WBC 0-0 kiqt=680) NEUTROPHILS RELATIVE PERCENT (BEAKER) (test 63 % gdsl=675) LYMPHOCYTES RELATIVE PERCENT (BEAKER) (test 26 % nxgl=379) MONOCYTES RELATIVE PERCENT (BEAKER) (test 6 % bwld=254) EOSINOPHILS RELATIVE PERCENT (BEAKER) (test 4 % gndy=328) BASOPHILS RELATIVE PERCENT (BEAKER) (test 1 % cykm=134) NEUTROPHILS ABSOLUTE COUNT (BEAKER) (test 5.27 K/ L 1.56-6.13 kxsm=587) LYMPHOCYTES ABSOLUTE COUNT (BEAKER) (test 2.16 K/ L 1.18-3.74 efxt=441) MONOCYTES ABSOLUTE COUNT (BEAKER) (test 0.48 K/ L 0.24-0.36 mrol=430) EOSINOPHILS ABSOLUTE COUNT (BEAKER) (test 0.34 K/ L 0.04-0.36 oiuk=758) BASOPHILS ABSOLUTE COUNT (BEAKER) (test 0.08 K/ L 0.01-0.08 rzjo=884) IMMATURE GRANULOCYTES-RELATIVE PERCENT (BEAKER) 0 % 0-1 (test ztlo=3701)
--- OUTSIDE RECORDS SUMMARY | 2019-08-29 18:44 | XMS REPORT | Summary of Care ---
:1955 Author Organization [facility] [place] [address] Care Team Providers Name Role Phone Duane Spencer MD Primary Care Provider Rios Gallego DO Unavailable Reason for Referral Radiology Services (Routine) Status Reason Specialty Diagnoses / Referred By Referred To Procedures Contact Contact E-Auth Not Radiology Diagnoses Malignant neoplasm of overlapping sites of right breast in female, estrogen receptor positive (HCCode) Tiago Yanez NP [facility] Mammo Needed Procedures MAMMO 3D DIAGNOSTIC LEFT [address] [facility] Imaging [address] [facility] 7th Floor, [address], [address] Phone: [phone] Radiology Services (Routine) Status Reason Specialty Diagnoses / Procedures Referred By Contact Referred To Contact Pending Radiology Diagnoses Malignant neoplasm of overlapping sites of right breast in female, estrogen receptor positive (HCCode) Multiple lung nodules on CT Rimawi, Mothaffar Nay, Radiology Procedures CT CHEST ABDOMEN PELVIS W/WO CONTRAST MD Mahad [address] [facility] 1st Floor 7th Floor, [address] [place] [id number] [place] [address] Radiology Services (Routine) Status Reason Specialty Diagnoses / Procedures Referred By Contact Referred To Contact Pending Cardiology Diagnoses Malignant neoplasm of overlapping sites of right breast in female, estrogen receptor positive (HCCode) Yanez, Cesiah, EXPOSURE MACHINE OPERATOR Procedures ECHO, COMPLETE [address] 7th Floor, [address] [place] [address] Reason for Visit Reason Comments Breast Cancer - IDC NOS Encounter Details Date Type Department Care Team Description 07/21/2019 Office Visit [facility] Tiago Cruz NP Breast Cancer - IDC [facility] Todd Azar [address] [facility] NOS [facility] 7th Floor, [address] [facility] 7A 7th Floor, [address] [place] [address] [place] [id number] Allergies No Known Allergiesdocumented as of this encounter (statuses as of 07/23/2019) Medications Medication Sig Dispensed Refills Start Date End Date Status ATORVASTATIN CALCIUM OR Take by 0 Active mouth. lisinopril (PRINIVIL, Take 5 mg by 0 Active ZESTRIL) 5 MG tablet mouth daily. Multiple Vitamins-Minerals Take by 0 Active (MULTIVITAMIN ADULTS OR) mouth. Magnesium Gluconate Take by 0 Active (MAGNESIUM 27 OR) mouth. Trace Min Take by 0 Active [id number] mouth. (MINERALS OR) Lactobacillus (PROBIOTIC Take by 0 Active ACIDOPHILUS OR) mouth. Multiple Vitamins-Minerals Take by 0 Active (EMERGEN-C IMMUNE OR) mouth. furosemide (LASIX) 20 MG Take 1 Tab by 30 Tab 1 02/03/2019 Active tablet mouth daily. levothyroxine (SYNTHROID) Take 75 mcg 0 Active 75 MCG tablet by mouth daily. metformin (GLUCOPHAGE) 1000 Take 1,000 mg 0 Active MG tablet by mouth 2 times daily (with meals). Cetirizine HCl 10 MG CAPS Take 10 mg by 0 Active mouth as needed. documented as of this encounter (statuses as of 07/23/2019) Active Problems Problem Noted Date Pre-operative cardiovascular examination 04/28/2019 Overview: 63 year old female with a history DM type 2, Hypertension, hyperlipidemia, right breast cancer diagnosed in 09/2018 who presents today for a pre-op cardiac evalation prior to a right mastectomby targete d axillary dissection. She is s/p taxol/HP x12 weeks--> AC (received one cycle) . - Echo on 01/2019 with an EF of 60% - ECG> sinus rhythm. - Patient is asymptomatic with no limitations in ADL. PLAN: 1. Mrs. Bahena is at a low risk for cardiac events during a non- cardiovascular procedure, no further testing is required at this time. 2. She is interested in participating in CVD genetics research. Referral was sent. Essential hypertension 04/28/2019 Overview: Controlled on lisinopril 5 mg PLAN: 1. Continue current regimen and regular BP checks. Hyperlipidemia 04/28/2019 Overview: On atorvastatin 40 mg, no recent labs. PLAN: 1. Advised to check labs routinely with PCP. Malignant neoplasm of overlapping sites of right breast in female, 10/21/2018 estrogen receptor positive (HCCode) documented as of this encounter (statuses as of 07/23/2019) Social History Tobacco Use Types Packs/Day Years Used Date Former Smoker Quit: 1998 Smokeless Tobacco: Never Used Alcohol Use Drinks/Week oz/Week Comments Not Currently Alcohol Habits Answer Date Recorded How often do you have a drink containing alcohol? Never 10/15/2018 How many drinks containing alcohol do you have on a typical Not asked day when you are drinking? How often do you have six or more drinks on one occasion? Not asked Sex Assigned at Date Recorded Not on file Job Start Date Occupation Industry Not on file Not on file Not on file Travel History Travel Start Travel End No recent travel history available. 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 Call [phone], option 1 then 2 to schedule. Left sided Mammogram end of August [address] due in 6 months. R TREATMENT TECHNICIAN documented in this encounter Progress Notes Tiago Yanez NP - 07/21/2019 1:40 PM CST Breast Oncology Follow Up Note Chief Complaint Rt Breast Cancer, IDC, ER+/GA+/HER2+ History of Present Illness Ms. Jessica Bahena was initially seen at the request of Dr. Nini Trejo. She is a 64 y.o. postmenopausal woman. She has past medical history significant for DM, and noFH of breast cancer. 09/16/18: DMMG: Rt breast, 9:00, retroareolar region with 3.5cm irregular, high- density mass w/spiculated margin & associated pleomorphic calcs. Nipple retraction/involvement noted. US recommended. 10/15/18: US: Rt breast, 9:00, anterior depth there is a 3.7 x 2.4 x 3.5cm irregular, hypoechoic mass with spiculated margin. Color flow imaging demonstrates is increased vascularity. Multiple abnormallevel I Rt axillary LNs , the largestof which measures 1.6 x 0.8 x 1.3 cm. 10/15/18: Rt Breast, 9:00, US Guided Core Bx: IDC, grade 3, mild to moderate TIL 's. Central sclerosis & focal calcifications. ER+ (99%), GA+ (15%), HER2+ ( IHC). Ki67: 39%. Rt Axilla LN US Guided Core Bx: Positive for Carcinoma 10/31/18: Echo: LVEF 60% 10/31/18: CT C/A/P: Indeterminant 5 mm right upper lobe pulmonary nodule. A 3 mm hypodensity within the right lobe liver is too small to characterize- attention on surveillance follow up (4-5mos). 11/01/18: Bone scan: No evidence of metastatic bone disease. 12/11/2018 - 02/25/19: Chemo/Meds: Taxol weekly x 12 with Herceptin+Perjeta every 3 weeks. 02/06/19: Echo: LVEF 60%. 03/10/19: Chemo/Meds: C1 ddAC. Admitted afterwards locally with diarrhea, swelling, chest pain, and near syncope. 04/08/2019: Rt Breast US: Rt breast hypoechoic mass, 9:00, retroareolar region 1.8 cm x 0.8 cm x 1.9cm (previously 3.8 x 2.4 x 3.5 cm). Also, Rt ALN in Rt axillary tail 1.4 cm x 0.3 cm x 1 cm (previously 1.6 x 0.8 x 1.3 cm). Consistent with favorable response to chemo. 05/13/19 Right mastectomy with sentinel and non sentinel lymph node dissection. Surgical path showedcomplete pathologic response with 0/14 nodes negative. 06/09/2019: CT Chest: nodular lesions Rt upper and Lt lower lobe. Recommend repeat in 6mos. Nonspecific sub centimeter hypodense lesion in liver. Interim Hx: Jessica Bahena comes in today for follow up. Denies any changes to medical/surgical history since OLIVIA. Breast bear, s/p Rt mastectomy. Denies masses, lumps, skin/nipple changes, or nipple discharge to Ltbreast. Today, she feels well but still having fatigue. Denies CP, SOB/STEPHENS, STAFFORD, N/V/D, fever, chills, or bone pain. She is tolerating HP well with the following AE's: Diarrhea: Grade 1 (intermittent, no intervention indicated) Fatigue: Grade 1 (Relieved by rest- on reduced work schedule) She has already consulted with XRT and plans on starting next week (Kye Garcia). Review of Systems A full 12-point review of symptoms was performed and was otherwise negative. Family History: Reviewed. No family history of breast or ovarian cancer. Past Medical History: Reviewed and forms submitted for scanning. Social History: Reviewed and forms submitted for scanning. Medications: Reviewed Physical Exam Vitals: 07/21/19 1352 BP: 120/71 BP Location: left arm Patient Position: Sitting Cuff Size: large Pulse: 84 Temp: 98.3 F (36.8 C) TempSrc: Oral Weight: 180 lb (81.6 kg) Height: 5' 1" (1.549 m) ECOG PS: 1 General: Alert, well appearing, no acute distress. Head : Normocephalic, atraumatic. Alopecia is resolving Eyes : Conjunctivae and lids normal. The sclera is clear and anicteric ENT : No oral lesions. Oropharynx without erythema or exudate. Neck : Supple,No cervical adenopathy. Heart : Regular rate and rhythm, normal S1 and S2. No murmurs, gallops, or rubs. Lungs : Normal respiratory effort. There is normal air entry with normal breath sounds. No rales, rhonchi, rubs or wheezes. Breast : Rt: s/p mastectomy with LN dissection- no CW masses/nodules or skin changes. Lt Breast: No masses, lumps, skin/nipple changes, or nipple discharge. Nodes : No palpable axillary, supraclavicular, or cervical lymphadenopathy bilaterally. Abdomen: Soft, non-tender, non-distended. There is no palpable hepatosplenomegaly. Extremities: No varicosities or ulceration. No clubbing, cyanosis. Trace BLE edema, non pitting. Skin : Warm and dry No rashes, lesions or ulcerations. Neurologic: The patient is oriented to time, place, and person. Moves all extremities and has no focal signs. Psych : She displays appropriate affect and behavior. Thought content is normal. Assessment and Plan: Ms. Bahena is a 64 y.o. woman with right breast cancer, cT2N1, IDC, G3, ER+ , GA+, HER2+, Ki67 39%. Rt Breast IDC: - s/p 12 weeks of weekly taxol and herceptin/perjeta q/3 weeks and only 1 cycle of ddAC- complicatedwith diarrhea and presyncope so patient elected not to continue. -s/p right mastectomy with node dissection on 05/13/19. Path showed PCR. - HP to complete a year - Last TTE on 03/20/19 showed EF of 58%. Due for repeat (ordered) -Plan to start letrozole after finishing radiation to complete for 5 years. - Lt MMG due in August 2019 (ordered) Lung Nodules/Liver Lesion: - CT 05/2019 recommended repeat in 6mos (ordered) Overall plan: Taxol/HP x12 weeks--> AC (received one cycle) --> surgery -- >PH to complete 1year--> XRT---> endocrine therapy for at least 5 years. RTC after completion of XRT to initiate endocrine therapy Tiago Yanez NP-C [facility] documented in this encounter Plan of Treatment Date Type Specialty Care Team Description 07/28/2019 Appointment Infusion Center 2, [facility] Chair [address] [facility] 7th Floor, [address] [place] [address] 09/22/2019 Ancillary Procedure Radiology 09/22/2019 Office Visit Breast Care Tiago Yanez, VINH [address] [facility] 7th Floor, [address] [place] [address] Name Type Priority Associated Diagnoses Order Schedule ECHO, COMPLETE Cardiac Services Routine Malignant neoplasm of Expected: overlapping sites of 07/21/2019, right breast in Expires: female, estrogen 01/19/2020 receptor positive (HCCode) CT CHEST ABDOMEN Imaging Routine Malignant neoplasm of Expected: PELVIS W/WO CONTRAST overlapping sites of 01/19/2020, right breast in Expires: female, estrogen 02/19/2020 receptor positive (HCCode) Multiple lung nodules on CT MAMMO 3D DIAGNOSTIC Imaging Routine Malignant neoplasm of Expected: LEFT overlapping sites of 07/21/2019, right breast in Expires: female, estrogen 01/18/2021 receptor positive (HCCode) Health Maintenance Due Date Last Done Comments COLON CANCER SCREENING: COLONOSCOPY 1955 TETANUS SHOT (ADULT) 1970 BMI FOLLOW UP PLAN 1973 HEPATITIS C SCREENING 1973 HIV SCREENING 1973 CERVICAL CANCER SCREENING 3 YEAR FOLLOW UP 1976 FLU VACCINE > 6 MONTHS 01/23/2019 MAMMOGRAM ANNUAL 04/08/2020 04/08/2019 documented as of this encounter Results Not on filedocumented in this encounter Visit Diagnoses Diagnosis 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
--- NOTE | 2019-08-29 20:00 | RAD REPORT ---
EXAM DESCRIPTION: RAD - Chest Pa And Lat (2 Views) - 08/29/2019 7:55 pm CLINICAL HISTORY: COUGH Chest pain. COMPARISON: Abdomen Acute Series dated 03/19/2019; Chest Single View dated 07/07/2017; CHEST SINGLE EW dated 11/02/2008 FINDINGS: The lungs are clear. The heart is normal in size. No displaced fractures. Left port cathet er is in place. IMPRESSION: No acute finding evident.
[2019-08-29 20:34] LABS: Absolute Lymphocytes (CBC) 1.1 K/uL (0.7-4.9); Hematocrit 36.5 % (36.0-45.0); Lymphocytes % 33.5 % (15.3-44.8); MPV 7.2 fL (7.6-11.3); RBC Red Blood Cell Count 4.18 M/uL (3.86-4.86)
[2019-08-29 20:45] LABS: BUN Blood Urea Nitrogen 17 mg/dL (7-18); Bicarbonate 28 mmol/L (21-32); Glucose Level 110 mg/dL (74-106); Potassium 3.8 mmol/L (3.5-5.1); Sodium Level 137 mmol/L (136-145); Troponin (Emerg Dept Use Only) < 0.02 ng/mL (0.0-0.045)
--- NOTE | 2019-08-29 21:53 | ER ---
Nurse's Notes [facility] Name: Jessica Bahena Age: 64 yrs Sex: Female : 1955 Arrival Date: 08/29/2019 Time: 18:43 Bed 27 Private MD: Diagnosis: Influenza due to identified novel influenza A virus Presentation: 08/28 18:51 Chief complaint: Patient states: "I know I've had a fever because I started with a aa5 headache, and I am having drainage to the back of my throat". Pt also reports productive cough and c/o chest "soreness". Pt reports she has been taking cephalexin 500mg since Sunday. 18:51 Method Of Arrival: Ambulatory aa5 18:51 Coronavirus screen: The patient has NOT traveled to a country currently being monitored aa5 by the [facility] within the last 14 days. Ebola Screen: Patient negative for fever greater than or equal to 101.5 degrees Fahrenheit, and additional compatible Ebola Virus Disease symptoms. Initial Sepsis Screen: Does the patient meet any 2 criteria? HR > 90 bpm. Does the patient have a suspected source of infection? Yes: Productive cough/pneumonia. Risk Assessment: Do you want to hurt yourself or someone else? Patient reports no desire to harm self or others. 18:51 Acuity: STAS 3 aa5 Triage Assessment: 19:11 General: Appears in no apparent distress. Behavior is calm, cooperative. Pain: Denies ls4 pain. Historical: - Allergies: 18:51 No Known Allergies; aa5 - PMHx: 18:51 breast cancer - tx at [facility]; Diabetes - NIDDM; Hyperlipidemia; High Cholesterol; aa5 Hypothyroidism; - PSHx: 18:51 ; Hernia repair; Lithotripsy; port o cath; R mastectomy; aa5 - Immunization history:: Adult Immunizations up to date. - Social history:: Smoking status: Patient denies any tobacco usage or history of. Screenin:10 Abuse screen: Denies threats or abuse. Denies injuries from another. Nutritional ls4 screening: No deficits noted. Tuberculosis screening: No symptoms or risk factors identified. Fall Risk None identified. Assessment: 19:18 General: PT SPEAKING IN COMPLETE SENTENCES. AMBULATED TO ROOM WITH NO SHORTNESS OF ls4 BREATH. SKIN WARM DRY PINK . Pain: Denies pain. Pain does not radiate. Pain began sore with cough. Neuro: No deficits noted. Cardiovascular: Denies chest pain, diaphoresis, fatigue, lightheadedness, nausea, palpitations, shortness of breath, syncope, vomiting, Capillary refill < 3 seconds Patient's skin is warm and dry. Rhythm is regular. Respiratory: Airway is patent Respiratory effort is even, unlabored, Respiratory pattern is regular, Breath sounds are clear bilaterally. the patient has mild shortness of breath. GI: No deficits noted. : No deficits noted. Derm: No signs and/or symptoms reported regarding the dermatologic system. 20:00 Reassessment: Patient appears in no apparent distress at this time. Patient and/or ls4 family updated on plan of care and expected duration. Pain level reassessed. Patient is alert, oriented x 3, equal unlabored respirations, skin warm/dry/pink. 20:58 Reassessment: Patient appears in no apparent distress at this time. Patient and/or ls4 family updated on plan of care and expected duration. Pain level reassessed. Patient is alert, oriented x 3, equal unlabored respirations, skin warm/dry/pink. 20:58 Reassessment: FLU A IS POSITIVE. ls4 Vital Signs: 18:51 BP 120 / 69; Pulse 100; Resp 18 S; Temp 99.0(O); Pulse Ox 97% on R/A; Weight 83.01 kg aa5 (R); Height 5 ft. 1 in. (154.94 cm) (R); Pain 0/10; 20:00 BP 122 / 64; Pulse 88; Resp 16; Temp 98.4(O); Pulse Ox 99% on R/A; Pain 0/10; ls4 21:00 BP 118 / 64; Pulse 79; Resp 14; Pulse Ox 99% on R/A; Pain 0/10; ls4 21:40 BP 116 / 70; Pulse 78; Resp 14; Temp 98.4(O); Pulse Ox 99% on R/A; Pain 0/10; ls4 18:51 Body Mass Index 34.58 (83.01 kg, 154.94 cm) aa5 ED Course: 18:43 Patient arrived in ED. ag5 18:46 Arm band placed on. aa5 18:50 monitor car operator on. Pulse ox on. NIBP on. ls4 18:50 Patient has correct armband on for positive identification. Bed in low position. Call ls4 light in reach. Side rails up X 1. 18:54 Triage completed. aa5 19:05 Mehdi Peace PA is PHCP. cp 19:05 Carlos Diaz MD is Attending Physician. cp 19:10 Virginia Duong, RN is Primary Nurse. ls4 19:54 X-ray completed. Patient tolerated procedure well. Radiology exam delayed due to mh1 patient is not appropriately dressed for the exam at this time. Patient moved back from radiology. 20:56 Strep Sent. ls4 20:56 Influenza Screen (a \\T\\ B) Sent. ls4 20:57 Basic Metabolic Panel Sent. ls4 20:57 Lactate Sent. ls4 20:57 Procalcitonin Sent. ls4 20:57 XRAY Chest Pa And Lat (2 Views) Sent. ls4 20:57 Inserted saline lock: 20 gauge in left antecubital area, using aseptic technique. ls4 20:57 No provider procedures requiring assistance completed. Patient maintains SpO2 ls4 saturation greater than 95% on room air. Administered Medications: No medications were administered Outcome: 21:53 Discharge ordered by MD. cp 22:20 Discharged to home ambulatory. vc 22:20 Condition: good 22:20 Discharge instructions given to patient, Instructed on discharge instructions, Demonstrated understanding of instructions, follow-up care, medications, Prescriptions given X 3. 22:21 Patient left the ED. vc Signatures: Daniela Smith 1 Candida Barnes RN RN aa5 Mehdi Peace PA PA cp Virginia Duong, RN RN ls4 Yamilet Stoll 5 Nahomy Calles RN RN vc Corrections: (The following items were deleted from the chart) 18:54 18:51 BP 120 / 69; Pulse 100bpm; Resp 18bpm; Spontaneous; Pulse Ox 97% RA; Temp 99.0F aa5 Oral; 83.01 kg Reported; Height 5 ft. 1 in. Reported; BMI: 34.5; aa5 18:55 18:51 Chief complaint: Patient states: "I know I've had a fever because I started with aa5 a headache, and I am having drainage to the back of my throat". Pt also reports productive cough and c/o chest "soreness". aa5
--- NOTE | 2019-08-29 21:53 | EDPHYS ---
Physician Documentation [facility] Name: Jessica Bahena Age: 64 yrs Sex: Female : 1955 Arrival Date: 08/29/2019 Time: 18:43 Bed 27 Private MD: ED Physician Carlos Diaz HPI: 08/28 19:35 This 64 yrs old Female presents to ER via Ambulatory with complaints of Chest cp Tightness, Fever. 19:35 The patient or guardian reports cough, that is intermittent, sore throat, drainage. cp 19:35 Onset: The symptoms/episode began/occurred 2 day(s) ago. Associated signs and symptoms: cp Pertinent positives: chest pain, with cough, fever, sore throat, Pertinent negatives: diarrhea, vomiting. Severity of symptoms: in the emergency department the symptoms have improved mildly. Patient reports she has been taking Keflex for past 2 days. Historical: - Allergies: 18:51 No Known Allergies; aa5 - PMHx: 18:51 breast cancer - tx at [facility]; Diabetes - NIDDM; Hyperlipidemia; High Cholesterol; aa5 Hypothyroidism; - PSHx: 18:51 ; Hernia repair; Lithotripsy; port o cath; R mastectomy; aa5 - Immunization history:: Adult Immunizations up to date. - Social history:: Smoking status: Patient denies any tobacco usage or history of. ROS: 19:40 Constitutional: Negative for fever, poor PO intake. cp 19:40 Eyes: Negative for injury, pain, redness, and discharge. cp 19:40 ENT: Positive for rhinorrhea, sore throat, Negative for drainage from ear(s), ear pain, difficulty swallowing, difficulty handling secretions. 19:40 Cardiovascular: Positive for chest pain, with cough. 19:40 Respiratory: Positive for cough, Negative for wheezing. 19:40 Abdomen/GI: Negative for abdominal pain, vomiting, diarrhea, constipation. 19:40 Back: Negative for radiated pain. 19:40 Skin: Negative for rash. 19:40 Neuro: Negative for altered mental status, headache, weakness. 19:40 All other systems are negative. Exam: 19:50 Constitutional: The patient appears in no acute distress, alert, awake, cp non-diaphoretic, non-toxic, well developed, well nourished. 19:50 Head/Face: Normocephalic, atraumatic. cp 19:50 Eyes: Periorbital structures: appear normal, Conjunctiva: normal, no exudate, no injection, Sclera: no appreciated abnormality, Lids and lashes: appear normal, bilaterally. 19:50 ENT: External ear(s): are unremarkable, Ear canal(s): are normal, clear, TM's: bulging, is not appreciated, bilaterally, dullness, bilaterally, erythema, is not appreciated, bilaterally, Nose: is normal, Mouth: Lips: moist, Oral mucosa: moist, Posterior pharynx: Airway: no evidence of obstruction, patent, Tonsils: no enlargement, no exudate, Uvula: midline, erythema, that is mild, exudate, is not appreciated. 19:50 Neck: ROM/movement: is normal, is supple, no meningismus, no nuchal rigidity, Lymph nodes: no appreciated lymphadenopathy. 19:50 Chest/axilla: Palpation: is normal, no crepitus, no tenderness. 19:50 Cardiovascular: Rate: tachycardic, Rhythm: regular, Edema: is not appreciated, JVD: is not appreciated. 19:50 Respiratory: the patient does not display signs of respiratory distress, Respirations: labored breathing, is not present, intercostal retractions, are absent, tachypnea, is not appreciated, Breath sounds: bronchial sounds, that are mild, are heard diffusely, decreased breath sounds, are not appreciated, stridor, is not appreciated, wheezing: is not appreciated. 19:50 Abdomen/GI: Inspection: abdomen appears normal, Bowel sounds: active, all quadrants, Palpation: abdomen is soft and non-tender, in all quadrants. 19:50 Skin: cellulitis, is not appreciated, no rash present. 19:50 Neuro: Orientation: is normal, Mentation: is normal, Motor: moves all fours, strength is normal. Vital Signs: 18:51 BP 120 / 69; Pulse 100; Resp 18 S; Temp 99.0(O); Pulse Ox 97% on R/A; Weight 83.01 kg aa5 (R); Height 5 ft. 1 in. (154.94 cm) (R); Pain 0/10; 20:00 BP 122 / 64; Pulse 88; Resp 16; Temp 98.4(O); Pulse Ox 99% on R/A; Pain 0/10; ls4 21:00 BP 118 / 64; Pulse 79; Resp 14; Pulse Ox 99% on R/A; Pain 0/10; ls4 21:40 BP 116 / 70; Pulse 78; Resp 14; Temp 98.4(O); Pulse Ox 99% on R/A; Pain 0/10; ls4 18:51 Body Mass Index 34.58 (83.01 kg, 154.94 cm) aa5 MDM: 19:14 Patient medically screened. cp 19:45 Differential diagnosis: bronchitis, flu, URI, pneumonia, sepsis. cp 21:52 Data reviewed: vital signs, nurses notes, lab test result(s), EKG, radiologic studies, cp plain films. 21:52 Test interpretation: by ED physician or midlevel provider: ECG, plain radiologic cp studies, chest xray negative for infiltrates. Counseling: I had a detailed discussion with the patient and/or guardian regarding: the historical points, exam findings, and any diagnostic results supporting the discharge/admit diagnosis, lab results, radiology results, the need for outpatient follow up, a family practitioner, to return to the emergency department if symptoms worsen or persist or if there are any questions or concerns that arise at home. 08/28 19:29 Order name: Procalcitonin cp 08/28 19:29 Order name: Lactate cp 08/28 19:29 Order name: Basic Metabolic Panel cp 08/28 19:29 Order name: CBC with Diff cp 08/28 19:29 Order name: Troponin (emerg Dept Use Only) cp 08/28 19:29 Order name: Influenza Screen (a \T\ B) cp 08/28 19:29 Order name: Strep cp 08/28 20:46 Order name: Lactate; Complete Time: 20:56 EDMS 08/28 21:40 Interpretation: Within normal limits: LAC 0.9. cp 08/28 20:46 Order name: Basic Metabolic Panel; Complete Time: 20:56 EDMS 08/28 20:56 Interpretation: Normal except: GLUC 110; GFR 71. cp 08/28 20:46 Order name: Troponin (Emerg Dept Use Only); Complete Time: 20:56 EDMS 08/28 20:55 Order name: CBC with Automated Diff; Complete Time: 20:56 EDMS 08/28 20:56 Interpretation: Normal except: WBC 3.4; MCV 87.3; MPV 7.2; MN% 13.5; NEUT A 1.7. cp 08/28 20:56 Order name: Influenza Screen (A ; Complete Time: 21:39 EDMS 08/28 21:39 Interpretation: Abnormal: FLUA FLU A ----- \T\nbsp; \T\nbsp; \T\nbsp; \T\nbsp; \T\nbsp; \T\nbs p; cp \T\nbsp; \T\nbsp; \T\nbsp; POSITIVE for FLU A protein antigen. 08/28 20:56 Order name: Group A Streptococcus Rapid Sc; Complete Time: 21:00 EDMS 08/28 21:06 Order name: Procalcitonin; Complete Time: 21:39 EDMS 08/28 21:39 Interpretation: Within normal limits. 08/28 19:29 Order name: XRAY Chest Pa And Lat (2 Views) cp 08/28 19:29 Order name: EKG; Complete Time: 19:30 cp 08/28 19:29 Order name: Cardiac monitoring; Complete Time: 20:56 cp 08/28 19:29 Order name: EKG - Nurse/Tech; Complete Time: 20:57 cp 08/28 19:29 Order name: IV Saline Lock; Complete Time: 20:57 cp 08/28 19:29 Order name: Labs collected and sent; Complete Time: 20:57 cp 08/28 19:29 Order name: O2 Per Protocol; Complete Time: 20:57 cp 08/28 19:29 Order name: O2 Sat Monitoring; Complete Time: 20:57 08/28 20:09 Order name: RAD; Complete Time: 20:33 EDMS 08/28 20:33 Interpretation: Report reviewed. cp Administered Medications: No medications were administered Disposition: 22:23 Co-signature as Attending Physician, Carlos Diaz MD. pkl Disposition: 08/29/19 21:53 Discharged to Home. Impression: Influenza due to identified novel influenza A virus. - Condition is Stable. - Discharge Instructions: Influenza, Adult. - Prescriptions for Zofran 4 mg Oral Tablet - take 1 tablet by ORAL route every 12 hours As needed; 20 tablet. Zithromax Z- Lucas 250 mg Oral Tablet - take 1 tablet by ORAL route as directed for 5 days Day 1 - take two (2) tablets one time. Day 2, 3, 4 , 5 take one (1) tablet once daily.; 6 tablet. Tamiflu 75 mg Oral Capsule - take 1 tablet by ORAL route every 12 hours for 5 days; 10 tablet. - Medication Reconciliation Form, Thank You Letter, Antibiotic Education, Prescription Opioid Use, Work release form form. - Follow up: Private Physician; When: 2 - 3 days; Reason: Recheck today's complaints. - Problem is new. - Symptoms have improved. Signatures: Dispatcher [employer] EDMS Carlos Diaz MD MD pkl Calderon, Audri, RN RN aa5 Mehid Peace PA PA cp Virginia Duong RN RN ls4 Nahomy Calles RN RN vc Corrections: (The following items were deleted from the chart) 20:56 20:56 Normal except: WBC 3.4; MCV 87.3; MPV 7.2; MN% 13.5. cp cp 22:21 21:53 08/29/2019 21:53 Discharged to Home. Impression: Influenza due to identified vc novel influenza A virus. Condition is Stable. Forms are Medication Reconciliation Form, Thank You Letter, Antibiotic Education, Prescription Opioid Use. Follow up: Private Physician; When: 2 - 3 days; Reason: Recheck today's complaints. Problem is new. Symptoms have improved. cp
[2019-08-29 22:32] VITALS: BP 120/69; TEMP 99; O2SAT 97
== END 2019-08-29 22:21 | disposition home or self-care (01) ==
LOC: ER 18:39
DX: J09.X9 Influenza due to identified novel influenza A virus with other manifestations (principal); Z85.3 Personal history of malignant neoplasm of breast
CPT/HCPCS: 36415; 71046; 80048; 83605; 84145; 84484; 85025; 87070; 87081; 87804; 99285

== ENCOUNTER 2022-01-14 21:10 | Emergency (ER) | payer OTHER ==
--- OUTSIDE RECORDS SUMMARY | 2022-01-14 21:17 | XMS REPORT | Continuity of Care Document ---
:1955 Author Organization [facility] t Address [address] [place] [address] Care Team Providers Name Role Phone Johanna Dennison MD, Irais Primary Care Physician [phone] ZULEIMA BERMUDEZ Attending Clinician Unavailable Dian RAINES Attending Clinician AIDAN Attending Clinician Unavailable Beau JUSTICE Attending Clinician SHI EMMANUEL Attending Clinician Unavailable Zuleima Bermudez MD Attending Clinician ROBBIN TREJO Attending Clinician Unavailable Zeus Trejo MD Attending Clinician Miguel JUSTICE Attending Clinician AIDAN Admitting Clinician Unavailable ROBBIN TREJO Admitting Clinician Unavailable Payers Payer Name Policy Type Policy Number Effective Date Expiration Date S bettye MEDICARE PART A \\T\\ [id number] B - MEDICARE MEDIGAP-GENERIC - [id number] GENERIC PAYOR [employer] PLAN [id number] HMO GENERIC MEDICARE [id number] 2021 ADVANTAGE PPO 00:00:00 MEDICARE A B [id number] 2020 00:00:00 GENERIC MEDICARE [id number] 2020 SUPPLEMENT 00:00:00 ON LICENSE OF [facility] [id number] 2018 CHOICE EXCHANGE 00:00:00 Problems Condition Condition Condition Status Onset Resolution Last Treating Co mments Source Name Details Category Date Date Treatment Clinician Date Dyspnea Dyspnea Disease Active 2020-[address] 00:00: of 00 Medicin e Edema Edema Disease Active 2020-[address] 00:00: of 00 Medicin e Aortic Aortic Disease Active 2020-06 [facility] valve [address] [place] [address] regurgitat regurgitat 00:00: of ion ion 00 Medicin e Pre-operat Pre-operat Disease Active 2018-06 Overview : [facility] silverio silverio 06-28 [facility] cardiovasc cardiovasc 00:00: g of this of ular ular 00 note Medicin examinatio examinatio might be e n n different from the original. 63 year old female with a history DM type 2, Hypertens ion, hyperlipi demia, right breast cancer diagnosed in 09/2018 who presents today for a pre-op cardiac evalation prior to a right mastectom by targeted axillary dissectio n. She is s/p taxol/HP x12 weeks--> AC (received one cycle).- Echo on 01/2019 with an EF of 60% - ECG> sinus rhythm. - Patient is asymptoma tic with no limitatio ns in ADL.PLAN: 1. Mrs. Bradly urban is at a low risk for cardiac events during a non-cardi ovascular procedure , no further testing is required at this time. 2. She is intereste d in jace rice in CVD genetics research. Referral was sent. Essential Essential Disease Active 2018-06 Overview: [facility] hypertensi hypertensi 06-28 [facility] on on 00:00: g of this of note Medicin might be e different from the original. Controlle d on lisinopri l 5 mg PLAN:1. Continue current regimen and regular BP checks. Hyperlipid Hyperlipid Disease Active 2018-06 Overview : [facility] emia emia 06-28 [facility] 00:00: g of this of 00 note Medicin might be e different from the original. On atorvasta tin 40 mg, no recent labs.PLAN :1. Advised to check labs routinely with PCP. Malignant Malignant Disease Active [place] [facility] neoplasm neoplasm 4-29 [facility] of of 00:00: of overlappin overlappin 00 Me dicin g sites of g sites of e right right breast in breast in female, female, estrogen estrogen receptor receptor positive positive (HCCode) (HCCode) Diabetes Diabetes Problem Active Gabriel ge mellitus Mellitus 2- Family 00:00: Practic 00 e Essential Essential Problem Active [place]ica ngo hypertensi Hypertensi 2- on 00:00: Practic 00 e Kidney Kidney Problem Active [place] [facility] [place] 2- Family 00:00: Practic 00 e Dupuytren' Problem Active 2020-12-25 M emoria s 01:32:56 l contractur Partha n e Dupuytren' (disorder) s contractur e (disorder) Active Problem 12/25/2020 [facility] Fatigue Problem Active 2020-12-25 Gabriel lou (finding) 01:32:56 l Fatigue [place] (finding) Active Problem 12/25/2020 [facility] Type 2 Type 2 Problem Active Common diabetes diabetes Spirit mellitus mellitus - [facility] without without St complicati complicati [facility] on, on, Medical without without Center long-term long-term current current use of use of insulin insulin Hyperglyce Problem Active 2020-12-25 M emoria jyotsna 01:32:56 l (disorder) Partha n Hyperglyce jyotsna (disorder) Active Problem 12/25/2020 [facility] Breast Breast Problem Active Common lump lump [facility] - [facility] History of History of Problem Active C ommon renal renal Spirit calculi calculi - [facility] Hypertensi Problem Active 2020-12-25 M emoria ve 01:32:56 l disorder, [place] systemic Hypertensi arterial ve (disorder) disorder, systemic arterial (disorder) Active Problem 12/25/2020 [facility] Encounter Encounter Problem Active Com mon for for Spirit screening screening - [facility] I mammogram mammogram St for breast for breast [facility] cancer cancer [facility] Hypothyroi Problem Active 2020-12-25 M emoria dism 01:32:56 l (disorder) Partha n Hypothyroi dism (disorder) Active Problem 12/25/2020 [facility] Encounter Encounter Problem Active Com mon for for Spirit gynecologi gynecologi - [facility] frank frank St examinatio examinatio [facility] n without n without Medi frank abnormal abnormal Center finding finding Lumbar Problem Active 2020-12-25 Memor ia radiculopa 01:32:56 l thy Lumbar [place] (disorder) radiculopa thy (disorder) Active Problem 12/25/2020 [facility] Pain in Problem Active 2020-12-25 Gabriel lou wrist 01:32:56 l (finding) Pain in Herm sophie wrist (finding) Active Problem 12/25/2020 [facility] Paresthesi Problem Active 2020-12-25 M emoria a 01:32:56 l (finding) [place] Paresthesi a (finding) Active Problem 12/25/2020 [facility] Peripheral Problem Active 2020-12-25 M emoria nerve 01:32:56 l disease [place] (disorder) Peripheral nerve disease (disorder) Active Problem 12/25/2020 [facility] Diabetes Problem Active 2020-12-25 Mem oria mellitus 01:32:56 l type 2 Diabetes Partha n (disorder) mellitus type 2 (disorder) Active Problem 12/25/2020 [facility] Diverticul Problem Resolve 2020-12-25 Memoria itis d 01:32:56 l (disorder) Partha n Diverticul itis (disorder) Resolved Problem 12/25/2020 [facility] Vertigo Problem Resolve 2020-12-25 Mem oria (finding) d 01:32:56 l Vertigo [place] (finding) Resolved Problem 12/25/2020 [facility] Backache Problem Active 2020-12-25 Mem oria (finding) 01:32:56 l Backache Partha n (finding) Active Problem 12/25/2020 [facility] Carpal Problem Active 2020-12-25 Memor ia tunnel 01:32:56 l syndrome Carpal Partha n (disorder) tunnel syndrome (disorder) Active Problem 12/25/2020 [facility] Allergies, Adverse Reactions, Alerts Allergy Allergy Status Severity Reaction(s) Onset Inactive Treating Comm ents Source Name Type Date Date Clinician NO KNOWN Allergy Active [facility] Social History Social Habit Start Date Stop Date Quantity Comments Source History of tobacco Smoker [facility] use of Medicine History [facility] Alcohol Std Drinks of Med icine History [facility] Alcohol Binge of Medicine Exposure to Not sure [facility] e SARS-CoV-2 (event) of Med icine History [facility] Alcohol Comment of Medici ne Alcohol intake 2021-08-01 2021-08-01 Ex-drinker [facility] 00:00:00 00:00:00 (finding) of Medicine Social History 2020-12-08 2020-12-08 [facility] 20:32:19 20:32:[address] [facility] 2018-10-15 2018-10-15 1 [facility] Alcohol Frequency 00:00:00 00:00:00 of Medi cine Tobacco use and 2018-10-15 2018-10-15 Smokeless tobacco [facility] [place] exposure 00:00:00 00:00:00 non-user of Medicine Sex Ass[birth year] At [birth year] [facility] 00:00:00 00:00:00 of Medicine Smoking Status Start Date Stop Date Source Never Smoker [facility] Danial mahmood Ex-smoker 2018-10-15 00:00:00 2018-10-15 00:00:00 [facility] ol[place]tta of Medicine Medications Ordered Filled Start Stop Current Ordering Indication Dosage Frequency Signature Comments Components Source Medication Medication Date Date Medication? Clinician (SIG) Name Name ATORVASTATI Yes Take by Al sharp N CALCIUM 2-07 mouth. College OR 13:21: of 47 Medicin e lisinopril Yes 5mg Take 5 mg Al sharp (PRINIVIL, 2-07 by mouth Pancho hitchcock ZESTRIL) 5 13:21: daily. of MG tablet 47 Medicin e Multiple Yes Take by [facility] 2-07 mouth. Celi prado nerals 13:21: of (MULTIVITAM 47 Medicin IN ADULTS e OR) Magnesium Yes Take by [facility] or Gluconate 2-07 mouth. College (MAGNESIUM 13:21: of 27 OR) 47 Medicin e Trace Min Yes Take by [facility] or CaCrCuFeKMg 2-07 mouth. Celi prado MnPSeZn 13:21: of (MINERALS 47 Medicin OR) e Lactobacill Yes Take by Al cejaor us 2-07 mouth. College (PROBIOTIC 13:21: of ACIDOPHILUS 47 Medicin OR) e Multiple Yes Take by [facility] 2-07 mouth. Colleg e nerals 13:21: of (EMERGEN-C 47 Medicin IMMUNE OR) e Cetirizine Yes 10mg Take 10 mg B aylor HCl 10 MG 2-07 by mouth Colleg e CAPS 13:21: as needed. of 47 Medicin e Zinc 10 MG Yes Take by [place] josh LOZG 2-07 mouth. [place] 13:21: of 47 Medicin e amoxicillin Yes 500mg Take 1 [place] josh (AMOXIL) 2-07 capsule by Colle ge 500 mg 00:00: mouth 3 of capsule 00 times Medicin daily. e ATORVASTATI 2020-06 Yes Take by Ba ylor N CALCIUM 2-14 mouth. [place] OR 13:39: of 08 Medicin e lisinopril 2020-06 Yes 5mg Take 5 mg [facility] (PRINIVIL, 2-14 by mouth [place]o ge ZESTRIL) 5 13:39: daily. of MG tablet 08 Medicin e Multiple 2020-06 Yes Take by [facility] 2-14 mouth. Collepanfilo e nerals 13:39: of (MULTIVITAM 08 Medicin IN ADULTS e OR) Magnesium 2020-06 Yes Take by [facility] or Gluconate 2-14 mouth. [place] (MAGNESIUM 13:39: of 27 OR) 08 Medicin e Trace Min 2020-06 Yes Take by Bayl or CaCrCuFeKMg 2-14 mouth. Celi prado MnPSeZn 13:39: of (MINERALS 08 Medicin OR) e Lactobacill 2020-06 Yes Take by Ba ylor us 2-14 mouth. [place] (PROBIOTIC 13:39: of ACIDOPHILUS 08 Medicin OR) e Multiple 2020-06 Yes Take by [facility] 2-14 mouth. Collepanfilo e nerals 13:39: of (EMERGEN-C 08 Medicin IMMUNE OR) e Cetirizine 2020-06 Yes 10mg Take 10 mg B aylor HCl 10 MG 2-14 by mouth Celi e CAPS 13:39: as needed. of 08 Medicin e Zinc 10 MG 2020-06 Yes Take by [place] j[facility] LOZG 2-14 mouth. [place] 13:39: of 08 Medicin e Letrozole 2020-06 Yes Take 1 [facility] 2.5 MG TABS 1-30 tablet by Col [facility]ge 00:00: mouth once of 00 daily Medicin e Letrozole 2020-06 Yes Take 1 [facility] 2.5 MG TABS 1-30 tablet by Col [facility]ge 00:00: mouth once of 00 daily Medicin e multivitami 0 Yes Daily, 0 Me moria n 6-16 Refill(s) l 21:40: Miko 00 Zinc Yes 2 gummies Memoria 6-16 22 mg, PO, l 21:39: Daily, 0 [place] 00 Refill(s) Hydrocortis 0 Yes 0 Memori a one 10 6-16 Refill(s) l MG/ML / 21:38: Miko Neomycin 00 3.5 MG/ML / Polymyxin B 90419 UNT/ML Otic Suspension Emergen-C Yes 0 Memoria 6-16 Refill(s) l 21:36: [place] 00 letrozole Yes 2.5 mg = 1 Me moria 2.5 mg oral 6-16 tab, PO, l tablet 21:35: Daily, 0 [place] 00 Refill(s) lisinopril Yes 5 mg = 1 Mem oria 5 mg oral 6-16 tab, PO, l tablet 21:34: Daily, 0 Miko 00 Refill(s) atorvastati Yes 40 mg = 1 M emoria n 40 mg 6-16 tab, PO, l oral tablet 21:34: Daily, 0 He rm Refill(s) levothyroxi Yes 75 Memori a ne 75 mcg 6-16 microgram l (0.075 mg) 21:33: = 1 tab, Her davison oral tablet 00 PO, Daily, 0 Refill(s) levothyroxi 2020-0 2020- No 75ug Take 75 Ba [facility]lor ne 1-04 01-04 mcg by [place] (SYNTHROID) 21:18: 00:00 mouth of 75 MCG 38 :00 daily. Medicin tablet e ATORVASTATI Yes Take by [facility] N CALCIUM 1-04 mouth. College OR 20:57: of 59 Medicin e lisinopril 0 Yes 5mg Take 5 mg [facility] (PRINIVIL, 1-04 by mouth Colle ge ZESTRIL) 5 20:57: daily. of MG tablet 59 Medicin e Multiple Yes Take by [facility] 1-04 mouth. Colleg e nerals 20:57: of (MULTIVITAM 59 Medicin IN ADULTS e OR) Magnesium Yes Take by [facility] or Gluconate 1-04 mouth. [place] (MAGNESIUM 20:57: of 27 OR) 59 Medicin e Trace Min Yes Take by [facility]l or CaCrCuFeKMg 1-04 mouth. Celi prado MnPSeZn 20:57: of (MINERALS 59 Medicin OR) e Lactobacill Yes Take by Al sharp us 1-04 mouth. [place] (PROBIOTIC 20:57: of ACIDOPHILUS 59 Medicin OR) e Multiple Yes Take by [facility] 1-04 mouth. Collepanfilo prado nerals 20:57: of (EMERGEN-C 59 Medicin IMMUNE OR) e Cetirizine Yes 10mg Take 10 mg B aylor HCl 10 MG 1-04 by mouth Celi prado CAPS 20:57: as needed. of 59 Medicin e levothyroxi Yes 75ug Take 1 [facility]l or ne 1-04 Tablet by [place] (SYNTHROID) 00:00: mouth of 75 MCG 00 daily. Medicin tablet e metronidazo Yes 500mg Take 1 [place] josh le (FLAGYL) 1-04 Tablet by Col [facility]ge 500 MG 00:00: mouth of tablet 00 every 8 Medicin hours. e sulfamethox Yes 1{tbl} Take 1 [facility] azole-trime 1-04 Tablet by Col [facility] thoprim 00:00: mouth two of (BACTRIM 00 times Medicin DS, SEPTRA daily. e DS) 800-160 MG per tablet levothyroxi Yes 75ug Take 1 [facility]l or ne 1-04 Tablet by [place] (SYNTHROID) 00:00: mouth of 75 MCG 00 daily. Medicin tablet e levothyroxi Yes 75ug Take 1 [facility] or ne 1-04 Tablet by [place] (SYNTHROID) 00:00: mouth of 75 MCG 00 daily. Medicin tablet e ATORVASTATI 2019-06 Yes Take by Al sharp N CALCIUM 1-30 mouth. College OR 20:21: of 05 Medicin e lisinopril 2019-06 Yes 5mg Take 5 mg [facility] (PRINIVIL, 1-30 by mouth Colle ge ZESTRIL) 5 20:21: daily. of MG tablet 05 Medicin e Multiple 2019-06 Yes Take by [facility] 1-30 mouth. Colleg e nerals 20:21: of (MULTIVITAM 05 Medicin IN ADULTS e OR) Magnesium 2019-06 Yes Take by Bayl or Gluconate 1-30 mouth. [place] (MAGNESIUM 20:21: of 27 OR) 05 Medicin e Trace Min 2019-06 Yes Take by [facility]l or CaCrCuFeKMg 1-30 mouth. Colleg e MnPSeZn 20:21: of (MINERALS 05 Medicin OR) e Lactobacill 2019-06 Yes Take by Ba ylor us 1-30 mouth. [place] (PROBIOTIC 20:21: of ACIDOPHILUS 05 Medicin OR) e Multiple 2019-06 Yes Take by [facility] 1-30 mouth. Colleg e nerals 20:21: of (EMERGEN-C 05 Medicin IMMUNE OR) e levothyroxi 2019-06 Yes 75ug Take 75 [place] josh ne 1-30 mcg by [place] (SYNTHROID) 20:21: mouth of 75 MCG 05 daily. Medicin tablet e Cetirizine 2019-06 Yes 10mg Take 10 mg B aylor HCl 10 MG 1-30 by mouth Colleg e CAPS 20:21: as needed. of 05 Medicin e Lactobacill 2019-06 Yes Take by Ba ylor us 0-12 mouth. [place] (PROBIOTIC 15:23: of ACIDOPHILUS 01 Medicin OR) e Multiple 2019-06 Yes Take by [facility] 0-12 mouth. Colleg e nerals 15:23: of (EMERGEN-C 01 Medicin IMMUNE OR) e levothyroxi 2019-06 Yes 75ug Take 75 [place] josh ne 0-12 mcg by [place] (SYNTHROID) 15:23: mouth of 75 MCG 01 daily. Medicin tablet e Cetirizine 2019-06 Yes 10mg Take 10 mg B aylor HCl 10 MG 0-12 by mouth Colleg e CAPS 15:23: as needed. of 01 Medicin e ATORVASTATI 2019-06 Yes Take by Ba marcialor N CALCIUM 0-12 mouth. College OR 15:23: of 00 Medicin e lisinopril 2019- Yes 5mg Take 5 mg [facility] (PRINIVIL, 0-12 by mouth Colle ge ZESTRIL) 5 15:23: daily. of MG tablet 00 Medicin e Multiple 2019-06 Yes Take by [facility] 0-12 mouth. Colleg e nerals 15:23: of (MULTIVITAM 00 Medicin IN ADULTS e OR) Magnesium 2019-06 Yes Take by [facility] or Gluconate 0-12 mouth. College (MAGNESIUM 15:23: of 27 OR) 00 Medicin e Trace Min 2019- Yes Take by [facility] or CaCrCuFeKMg 0-12 mouth. Colleg e MnPSeZn 15:23: of (MINERALS 00 Medicin OR) e metformin 2019-06 2020- No 1000mg Take 1,000 [place] (GLUCOPHAGE 0-12 10-12 mg by Colleg e ) 1000 MG 15:22: 00:00 mouth 2 of tablet 56 :00 times Medicin daily e (with meals). ATORVASTATI 0 Yes Take by Ba ylor N CALCIUM 8-03 mouth. [place] OR 16:26: of 10 Medicin e lisinopril 2019-0 Yes 5mg Take 5 mg [facility] (PRINIVIL, 8-03 by mouth Colle ge ZESTRIL) 5 16:26: daily. of MG tablet 10 Medicin e Multiple 0 Yes Take by [facility] 8-03 mouth. Colleg e nerals 16:26: of (MULTIVITAM 10 Medicin IN ADULTS e OR) Magnesium 2020-0 Yes Take by [facility]l or Gluconate 8-03 mouth. [place] (MAGNESIUM 16:26: of 27 OR) 10 Medicin e Trace Min 2020-0 Yes Take by [facility]l or CaCrCuFeKMg 8-03 mouth. Colleg e MnPSeZn 16:26: of (MINERALS 10 Medicin OR) e Lactobacill 2020-0 Yes Take by Ba ylor us 8-03 mouth. [place] (PROBIOTIC 16:26: of ACIDOPHILUS 10 Medicin OR) e Multiple 2019-0 Yes Take by [facility] 8-03 mouth. Colleg e nerals 16:26: of (EMERGEN-C 10 Medicin IMMUNE OR) e levothyroxi 2019-0 Yes 75ug Take 75 [place] josh ne 8-03 mcg by [place] (SYNTHROID) 16:26: mouth of 75 MCG 10 daily. Medicin tablet e metformin 2020-0 Yes 1000mg Take 1,000 [place] (GLUCOPHAGE 8-03 mg by College ) 1000 MG 16:26: mouth 2 of tablet 10 times Medicin daily e (with meals). Cetirizine 2020-0 Yes 10mg Take 10 mg B aylor HCl 10 MG 8-03 by mouth Colleg e CAPS 16:26: as needed. of 10 Medicin e Letrozole 2020-0 Yes 2.5mg Take 2.5 [place] josh 2.5 MG TABS 8-03 mg by [place] 00:00: mouth of 00 daily. Medicin e Letrozole 2020-0 Yes 2.5mg Take 2.5 [place] josh 2.5 MG TABS 8-03 mg by [place] 00:00: mouth of 00 daily. Medicin e Letrozole 2020-0 Yes 2.5mg Take 2.5 [place] josh 2.5 MG TABS 8-03 mg by [place] 00:00: mouth of 00 daily. Medicin e Letrozole 2020-0 Yes 2.5mg Take 2.5 [place] josh 2.5 MG TABS 8-03 mg by [place] 00:00: mouth of 00 daily. Medicin e amoxicillin 2020-0 Yes TAKE 1 [facility]l or (AMOXIL) 7-29 CAPSULE BY [facility] ge 500 mg 00:00: MOUTH of capsule 00 EVERY 8 Medicin HOURS e amoxicillin 2020-0 2020- No TAKE 1 [place] josh (AMOXIL) 7-29 10-12 CAPSULE BY [facility] ege 500 mg 00:00: 00:00 MOUTH of capsule 00 :00 EVERY 8 Medicin HOURS e pantoprazol 2020-0 Yes Take 1 [facility] or e 5-20 tablet by [place] (PROTONIX) 00:00: mouth once o f 20 MG 00 daily Medicin tablet e pantoprazol 2020-0 Yes Take 1 [facility] or e 5-20 tablet by [place] (PROTONIX) 00:00: mouth once o f 20 MG 00 daily Medicin tablet e pantoprazol 2020-0 Yes Take 1 [facility] or e 5-20 tablet by [place] (PROTONIX) 00:00: mouth once o f 20 MG 00 daily Medicin tablet e pantoprazol 2020-0 Yes Take 1 [facility] or e 5-20 tablet by [place] (PROTONIX) 00:00: mouth once o f 20 MG 00 daily Medicin tablet e pantoprazol 2020-0 Yes Take 1 [facility] or e 5-20 tablet by [place] (PROTONIX) 00:00: mouth once o f 20 MG 00 daily Medicin tablet e pantoprazol 2020-0 Yes Take 1 [facility] or e 5-20 tablet by [place] (PROTONIX) 00:00: mouth once o f 20 MG 00 daily Medicin tablet e ATORVASTATI 2020-0 Yes Take by Al cejaor N CALCIUM 07-21 mouth. [place] OR 19:54: of 47 Medicin e lisinopril 2020-0 Yes 5mg Take 5 mg Ba lila (PRINIVIL, 07-21 by mouth Colle coretta ZESTRIL) 5 19:54: daily. of MG tablet 47 Medicin e Multiple 2020-0 Yes Take by [facility] 07-21 mouth. Celi e nerals 19:54: of (MULTIVITAM 47 Medicin IN ADULTS e OR) Magnesium 2020-0 Yes Take by Bayl or Gluconate 07-21 mouth. [place] (MAGNESIUM 19:54: of 27 OR) 47 Medicin e Trace Min 2020-0 Yes Take by Bayl or CaCrCuFeKMg 07-21 mouth. Celi prado MnPSeZn 19:54: of (MINERALS 47 Medicin OR) e Lactobacill 2020-0 Yes Take by Ba lila us 07-21 mouth. [place] (PROBIOTIC 19:54: of ACIDOPHILUS 47 Medicin OR) e Multiple 2020-0 Yes Take by [facility] - mouth. Celi e nerals 19:54: of (EMERGEN-C 47 Medicin IMMUNE OR) e levothyroxi 2020-0 Yes 75ug Take 75 [place] josh ne 1-27 mcg by [place] (SYNTHROID) 19:54: mouth of 75 MCG 47 daily. Medicin tablet e metformin 2020-0 Yes 1000mg Take 1,000 [place] (GLUCOPHAGE 1-27 mg by [place] ) 1000 MG 19:54: mouth 2 of tablet 47 times Medicin daily e (with meals). Cetirizine 2020-0 Yes 10mg Take 10 mg B aylor HCl 10 MG 07-21 by mouth Celi prado CAPS 19:54: as needed. of 47 Medicin e ATORVASTATI 2018-06 Yes Take by Al sharp N CALCIUM 1 mouth. [place] OR 16:41: of 57 Medicin e lisinopril 2018-06 Yes 5mg Take 5 mg [facility] (PRINIVIL, 1-04 by mouth Colle ge ZESTRIL) 5 16:41: daily. of MG tablet 57 Medicin e Multiple 2018-06 Yes Take by [facility] 1-04 mouth. Colleg e nerals 16:41: of (MULTIVITAM 57 Medicin IN ADULTS e OR) Magnesium 2018-06 Yes Take by [facility]l or Gluconate 1-04 mouth. [place] (MAGNESIUM 16:41: of 27 OR) 57 Medicin e Trace Min 2018-06 Yes Take by [facility]l or CaCrCuFeKMg 1-04 mouth. Colleg e MnPSeZn 16:41: of (MINERALS 57 Medicin OR) e Lactobacill 2018-06 Yes Take by Ba ylor us 1-04 mouth. [place] (PROBIOTIC 16:41: of ACIDOPHILUS 57 Medicin OR) e levothyroxi 2018-06 Yes 75ug Take 75 [place] josh ne 1-04 mcg by [place] (SYNTHROID) 16:41: mouth of 75 MCG 57 daily. Medicin tablet e metformin 2018-06 Yes 1000mg Take 1,000 [facility] (GLUCOPHAGE 1-04 mg by [place] ) 1000 MG 16:41: mouth 2 of tablet 57 times Medicin daily e (with meals). ATORVASTATI Yes Take by Ba ylor N CALCIUM 9-30 mouth. [place] OR 13:33: of 42 Medicin e lisinopril Yes 5mg Take 5 mg [facility] (PRINIVIL, 9-30 by mouth Colle ge ZESTRIL) 5 13:33: daily. of MG tablet 42 Medicin e Multiple Yes Take by [facility] 9-30 mouth. Colleg e nerals 13:33: of (MULTIVITAM 42 Medicin IN ADULTS e OR) Magnesium Yes Take by [facility]l or Gluconate 9-30 mouth. [place] (MAGNESIUM 13:33: of 27 OR) 42 Medicin e Trace Min Yes Take by [facility]l or CaCrCuFeKMg 9-30 mouth. Colleg e MnPSeZn 13:33: of (MINERALS 42 Medicin OR) e Lactobacill Yes Take by Ba ylor us 9-30 mouth. [place] (PROBIOTIC 13:33: of ACIDOPHILUS 42 Medicin OR) e Multiple Yes Take by [facility] 9-30 mouth. Colleg e nerals 13:33: of (EMERGEN-C 42 Medicin IMMUNE OR) e levothyroxi Yes 75ug Take 75 [place] josh ne 9-30 mcg by College (SYNTHROID) 13:33: mouth of 75 MCG 42 daily. Medicin tablet e metformin Yes 1000mg Take 1,000 [place] (GLUCOPHAGE 9-30 mg by College ) 1000 MG 13:33: mouth 2 of tablet 42 times Medicin daily e (with meals). Multiple Yes Take by [facility] 9-30 mouth. Colleg e nerals 13:33: of (EMERGEN-C 42 Medicin IMMUNE OR) e levothyroxi Yes 75ug Take 75 [place] josh ne 9-09 mcg by College (SYNTHROID) 13:13: mouth of 75 MCG 09 daily. Medicin tablet e metformin Yes 1000mg Take 1,000 [place] (GLUCOPHAGE 9-09 mg by College ) 1000 MG 13:13: mouth 2 of tablet 09 times Medicin daily e (with meals). ATORVASTATI Yes Take by Ba marcialor N CALCIUM 9- mouth. College OR 13:13: of 09 Medicin e lisinopril Yes 5mg Take 5 mg [facility] (PRINIVIL, - by mouth Colle ge ZESTRIL) 5 13:13: daily. of MG tablet 09 Medicin e Multiple Yes Take by [facility] 9-09 mouth. Collepanfilo e nerals 13:13: of (MULTIVITAM 09 Medicin IN ADULTS e OR) Magnesium 2019-0 Yes Take by [facility]l or Gluconate 9-09 mouth. College (MAGNESIUM 13:13: of 27 OR) 09 Medicin e Trace Min 0 Yes Take by Bayl or CaCrCuFeKMg 9-09 mouth. Celi prado MnPSeZn 13:13: of (MINERALS 09 Medicin OR) e Lactobacill 2018-0 Yes Take by Ba ylor us 9-09 mouth. College (PROBIOTIC 13:13: of ACIDOPHILUS 09 Medicin OR) e Multiple Yes Take by [facility] 9-09 mouth. Colleg e nerals 13:13: of (EMERGEN-C 09 Medicin IMMUNE OR) e levothyroxi 2019-0 Yes 75ug Take 75 [place] josh ne 9- mcg by College (SYNTHROID) 13:13: mouth of 75 MCG 09 daily. Medicin tablet e metformin 2019-0 Yes 1000mg Take 1,000 [place] (GLUCOPHAGE 9-09 mg by College ) 1000 MG 13:13: mouth 2 of tablet 09 times Medicin daily e (with meals). ATORVASTATI 0 Yes Take by Ba ylor N CALCIUM 9- mouth. College OR 13:13: of 09 Medicin e lisinopril 2019-0 Yes 5mg Take 5 mg [facility] (PRINIVIL, 9 by mouth Colle ge ZESTRIL) 5 13:13: daily. of MG tablet 09 Medicin e Multiple Yes Take by [facility] 9- mouth. Colleg e nerals 13:13: of (MULTIVITAM 09 Medicin IN ADULTS e OR) Magnesium Yes Take by Bayl or Gluconate 9-09 mouth. [place] (MAGNESIUM 13:13: of 27 OR) 09 Medicin e Trace Min Yes Take by Bayl or CaCrCuFeKMg 9-09 mouth. Colleg e MnPSeZn 13:13: of (MINERALS 09 Medicin OR) e Lactobacill Yes Take by Ba ylor us 9- mouth. [place] (PROBIOTIC 13:13: of ACIDOPHILUS 09 Medicin OR) e Multiple Yes Take by [facility] 9-09 mouth. Colleg e nerals 13:13: of (EMERGEN-C 09 Medicin IMMUNE OR) e ATORVASTATI 0 Yes Take by Ba ylor N CALCIUM 8-19 mouth. College OR 13:22: of 57 Medicin e lisinopril 2019-0 Yes 5mg Take 5 mg Ba ylor (PRINIVIL, 8-19 by mouth [facility] ZESTRIL) 5 13:22: daily. of MG tablet 57 Medicin e Multiple 0 Yes Take by [facility] 8-19 mouth. [facility] e nerals 13:22: of (MULTIVITAM 57 Medicin IN ADULTS e OR) Magnesium 2019-0 Yes Take by [facility] Gluconate 8-19 mouth. College (MAGNESIUM 13:22: of 27 OR) 57 Medicin e Trace Min 2019-0 Yes Take by [facility] CaCrCuFeKMg 8-19 mouth. Celi prado MnPSeZn 13:22: of (MINERALS 57 Medicin OR) e Lactobacill 2018-0 Yes Take by Al sharp us 8-19 mouth. [place] (PROBIOTIC 13:22: of ACIDOPHILUS 57 Medicin OR) e Multiple 2018-0 Yes Take by [facility] 8-19 mouth. Celi prado nerals 13:22: of (EMERGEN-C 57 Medicin IMMUNE OR) e levothyroxi 2018-0 Yes 75ug Take 75 [place] josh ne 8-19 mcg by [place] (SYNTHROID) 13:22: mouth of 75 MCG 57 daily. Medicin tablet e metformin 0 Yes 1000mg Take 1,000 [facility] (GLUCOPHAGE 8-19 mg by [place] ) 1000 MG 13:22: mouth 2 of tablet 57 times Medicin daily e (with meals). Levothyroxi 2019- No Take by [facility] Sodium - 08-19 mouth. [place] (SYNTHROID 13:22: 00:00 of OR) 57 :00 Medicin e metformin 2018-0 2019- [facility] 500 mg [facility] ) 500 MG 13:22: 00:00 tablet of tablet 50 :00 Medicin e furosemide 2018-0 Yes 20mg Take 1 Tab [facility] (LASIX) 20 8-12 by mouth [facility]le [facility] MG tablet 00:00: daily. of Medicin e furosemide 2019-0 Yes 20mg Take 1 Tab [facility] (LASIX) 20 8-12 by mouth [facility]le [facility] MG tablet 00:00: daily. of Medicin e furosemide 2019-0 Yes 20mg Take 1 Tab [facility] (LASIX) 20 8-12 by mouth [facility]le [facility] MG tablet 00:00: daily. of Medicin e furosemide 2019-0 Yes 20mg Take 1 Tab [facility] (LASIX) 20 8-12 by mouth [facility]le [facility] MG tablet 00:00: daily. of Medicin e furosemide 2019-0 Yes 20mg Take 1 Tab [facility] (LASIX) 20 8-12 by mouth Colle ge MG tablet 00:00: daily. of Medicin e furosemide 2019- Yes 20mg Take 1 Tab [facility] (LASIX) 20 8-12 by mouth Colle ge MG tablet 00:00: daily. of 00 Medicin e furosemide 2019-0 Yes 20mg Take 1 Tab [facility] (LASIX) 20 8-12 by mouth Colle [facility] MG tablet 00:00: daily. of 00 Medicin e furosemide 2019- 2020- No 20mg Take 1 Tab [facility] (LASIX) 20 8-12 10-12 by mouth [facility] MG tablet 00:00: 00:00 daily. of 00 :00 Medicin e pantoprazol 2019-0 Yes 20mg Take 1 Tab [facility] 7-29 by mouth [facility] (PROTONIX) 00:00: daily. of 20 MG 00 Medicin tablet e pantoprazol 2019-0 Yes 20mg Take 1 Tab [facility] 7-29 by mouth [facility] (PROTONIX) 00:00: daily. of 20 MG 00 Medicin tablet e pantoprazol 2018-0 Yes 20mg Take 1 Tab [facility] e 7-29 by mouth [place] (PROTONIX) 00:00: daily. of 20 MG 00 Medicin tablet e pantoprazol 0 Yes 20mg Take 1 Tab [facility] 7-29 by mouth [facility] (PROTONIX) 00:00: daily. of 20 MG 00 Medicin tablet e pantoprazol 2019-0 Yes 20mg Take 1 Tab [facility] e 7-29 by mouth [place] (PROTONIX) 00:00: daily. of 20 MG 00 Medicin tablet e ondansetron Yes [id number] 8mg Take 1 Tab [facility] (ZOFRAN-ODT 7-08 by mouth [facility] ) 8 mg 00:00: every 8 of disintegrat 00 hours as Medi jaqui ing tablet needed for e Nausea (chemother apy induced nausea). dexamethaso 2019- Yes [id number] Take 1 [facility] ne 7-08 tablets PO [place] (DECADRON) 00:00: BID x3 of 4 MG tablet 00 days Medicin starting e the day before chemothera py ondansetron 2019 Yes [id number] 8mg Take 1 Tab [facility] (ZOFRAN-ODT 7-08 by mouth [facility] ) 8 mg 00:00: every 8 of disintegrat 00 hours as Medi jaqui ing tablet needed for e Nausea (chemother apy induced nausea). dexamethaso 2019- Yes [id number] Take 1 [facility] ne 7-08 tablets PO [place] (DECADRON) 00:00: BID x3 of 4 MG tablet 00 days Medicin starting e the day before chemothera py ondansetron 2019- Yes [id number] 8mg Take 1 Tab [facility] (ZOFRAN-ODT 7-08 by mouth [facility] ) 8 mg 00:00: every 8 of disintegrat 00 hours as Medi jaqui ing tablet needed for e Nausea (chemother apy induced nausea). dexamethaso 2019-0 Yes [id number] Take 1 [facility] ne 7-08 tablets PO [place] (DECADRON) 00:00: BID x3 of 4 MG tablet 00 days Medicin starting e the day before chemothera py ondansetron 2018- Yes [id number] 8mg Take 1 Tab [facility] (ZOFRAN-ODT 7-08 by mouth Wero [facility] ) 8 mg 00:00: every 8 of disintegrat 00 hours as Medi jaqui ing tablet needed for e Nausea (chemother apy induced nausea). dexamethaso 2019 Yes [id number] Take 1 [facility] ne 7-08 tablets PO [place] (DECADRON) 00:00: BID x3 of 4 MG tablet 00 days Medicin starting e the day before chemothera py ondansetron 2018-0 Yes [id number] 8mg Take 1 Tab [facility] (ZOFRAN-ODT 7-08 by mouth W[facility] ) 8 mg 00:00: every 8 of disintegrat 00 hours as Medi jaqui ing tablet needed for e Nausea (chemother apy induced nausea). dexamethaso 2019-0 Yes [id number] Take 1 [facility] ne 7-08 tablets PO [place] (DECADRON) 00:00: BID x3 of 4 MG tablet 00 days Medicin starting e the day before chemothera py lidocaine-p 2019-0 Yes [id number] Apply to [facility] rilocaine 6-[address] [place] [address] (EMLA) 00:00: hour of 2.5-2.5 % 00 before use Medi jaqui cream e promethazin 2019-0 Yes [id number] 25mg Take 1 Tab [facility] e 6-10 by mouth [place] (PHENERGAN) 00:00: every 6 of 25 MG 00 hours as Medicin tablet needed for e Nausea or Other (chemother apy induced nausea). lidocaine-p Yes [id number] Apply to [facility] rilocaine 6-[address] ([facility]) 00:00: hour of 2.5-2.5 % 00 before use Medi jaqui cream e promethazin Yes [id number] 25mg Take 1 Tab [facility] 6-10 by mouth College (PHENERGAN) 00:00: every 6 of 25 MG 00 hours as Medicin tablet needed for e Nausea or Other (chemother apy induced nausea). lidocaine-p Yes [id number] Apply to [facility] rilocaine 6-[address] ([facility]) 00:00: hour of 2.5-2.5 % 00 before use Medi jaqui cream e promethazin Yes [id number] 25mg Take 1 Tab [facility] e 6-10 by mouth College (PHENERGAN) 00:00: every 6 of 25 MG 00 hours as Medicin tablet needed for e Nausea or Other (chemother apy induced nausea). lidocaine-p Yes [id number] Apply to [facility] rilocaine 6-[address] ([facility]) 00:00: hour of 2.5-2.5 % 00 before use Medi jaqui cream e promethazin Yes [id number] 25mg Take 1 Tab [facility] e 6-10 by mouth College (PHENERGAN) 00:00: every 6 of 25 MG 00 hours as Medicin tablet needed for e Nausea or Other (chemother apy induced nausea). lidocaine-p Yes [id number] Apply to [facility] rilocaine 6-[address] ([facility]) 00:00: hour of 2.5-2.5 % 00 before use Medi jaqui cream e promethazin Yes [id number] 25mg Take 1 Tab [facility] e 6-10 by mouth College (PHENERGAN) 00:00: every 6 of 25 MG 00 hours as Medicin tablet needed for e Nausea or Other (chemother apy induced nausea). Amoxicillin Amoxicillin 2017-06 Yes Marta Brown 1 tablet Common 2-28 [facility]: [facility] Probiotic Probiotic Yes Marta Brown not Common defined [facility] Magnesium Magnesium Yes Marta Brown not Common defined [facility] Vitamin Vitamin Yes Marta Brown not Com mon B-12 B-12 defined [facility] Oxybutynin Oxybutynin Yes Marta Brown not Common Chloride ER Chloride ER defined [facility] Metformin Metformin Yes Marta Brown not Common HCl HCl defined [facility] Womens Womens Yes Marta Brown not Commo n Multivitami Multivitami defined [facility] n [facility] amoxicillin amoxicillin No amoxicilli [place] 500 500 n 500 Family mg-potassiu mg-potassiu mg-potassi Practic m m um e clavulanate clavulanate clavulanat 125 mg 125 mg e 125 mg tablet tablet tablet metformin metformin No metformin [place] 500 mg 500 mg 500 mg Family tablet tablet tablet Practic e oxybutynin oxybutynin No oxybutynin [place] chloride ER chloride ER chloride Family 10 mg 10 mg ER 10 mg Practic tablet,exte tablet,exte tablet,ext e nded nded ended release 24 release 24 release 24 hr hr hr Vital Signs Vital Name Observation Time Observation Value Comments Source Systolic blood 2021-08-01 19:17:00 140 mm[Hg] [facility] Diastolic blood 2021-08-01 19:17:00 77 mm[Hg] [facility] Heart rate 2021-08-01 19:17:00 80 /min [facility] Body temperature 2021-08-01 19:17:00 36.78 Valerie [facility] Respiratory rate 2021-08-01 19:17:00 18 /min [facility] Body height 2021-08-01 19:17:00 154.9 cm [facility] Body weight 2021-08-01 19:17:00 93.895 kg [facility] BMI 2021-08-01 19:17:00 39.11 kg/m2 [facility] Systolic blood 2021-06-07 19:39:00 121 mm[Hg] [facility] Diastolic blood 2021-06-07 19:39:00 79 mm[Hg] [facility] Heart rate 2021-06-07 19:39:00 79 /min [facility] Respiratory rate 2021-06-07 19:39:00 16 /min [facility] Body height 2021-06-07 19:39:00 154.9 cm [facility] Body weight 2021-06-07 19:39:00 93.441 kg [facility] BMI 2021-06-07 19:39:00 38.92 kg/m2 [facility] Oxygen saturation in 2021-06-07 19:39:00 100 /min [facility] Arterial blood by [facility] Pulse oximetry Systolic blood 2020-06-28 20:47:00 132 mm[Hg] [facility] pressure Medicine Diastolic blood 2020-06-28 20:47:00 80 mm[Hg] [facility] Medicine Heart rate 2020-06-28 20:47:00 81 /min [facility] Body temperature 2020-06-28 20:47:00 36.61 Valerie [facility] Body height 2020-06-28 20:47:00 154.9 cm [facility] Body weight 2020-06-28 20:47:00 89.268 kg [facility] BMI 2020-06-28 20:47:00 37.19 kg/m2 [facility] Systolic blood 2020-05-24 20:20:00 146 mm[Hg] [facility] pressure Medicine Diastolic blood 2020-05-24 20:20:00 81 mm[Hg] [facility] Medicine Heart rate 2020-05-24 20:20:00 84 /min [facility] Body temperature 2020-05-24 20:20:00 36.78 Valerie [facility] Body height 2020-05-24 20:20:00 154.9 cm [facility] Body weight 2020-05-24 20:20:00 87.544 kg [facility] BMI 2020-05-24 20:20:00 36.47 kg/m2 [facility] Systolic blood 2020-04-05 15:21:00 145 mm[Hg] [facility] of pressure Medicine Diastolic blood 2020-04-05 15:21:00 80 mm[Hg] [facility] pressure Medicine Heart rate 2020-04-05 15:21:00 84 /min [facility] Body temperature 2020-04-05 15:21:00 36.67 Valerie [facility] Body height 2020-04-05 15:21:00 154.9 cm [facility] Body weight 2020-04-05 15:21:00 86.183 kg [facility] BMI 2020-04-05 15:21:00 35.90 kg/m2 [facility] Systolic blood 2020-01-26 16:25:00 155 mm[Hg] [facility] of pressure Medicine Diastolic blood 2020-01-26 16:25:00 85 mm[Hg] [facility] Medicine Heart rate 2020-01-26 16:25:00 87 /min [facility] Body temperature 2020-01-26 16:25:00 36.78 Valerie [facility] Body height 2020-01-26 16:25:00 154.9 cm [facility] Body weight 2020-01-26 16:25:00 84.823 kg [facility] BMI 2020-01-26 16:25:00 35.33 kg/m2 [facility] Systolic blood 2019-07-21 19:52:00 120 mm[Hg] [facility] Medicine Diastolic blood 2019-07-21 19:52:00 71 mm[Hg] [facility] Medicine Heart rate 2019-07-21 19:52:00 84 /min [facility] Body temperature 2019-07-21 19:52:00 36.83 Valerie [facility] Body height 2019-07-21 19:52:00 154.9 cm [facility] Body weight 2019-07-21 19:52:00 81.647 kg [facility] BMI 2019-07-21 19:52:00 34.01 kg/m2 [facility] Systolic blood 2019-04-28 16:32:00 130 mm[Hg] [facility] of pressure Medicine Diastolic blood 2019-04-28 16:32:00 79 mm[Hg] [facility] Medicine Heart rate 2019-04-28 16:32:00 86 /min [facility] Respiratory rate 2019-04-28 16:32:00 16 /min [facility] Body height 2019-04-28 16:32:00 154.9 cm [facility] Body weight 2019-04-28 16:32:00 84.369 kg [facility] BMI 2019-04-28 16:32:00 35.14 kg/m2 [facility] Oxygen saturation in 2019-04-28 16:32:00 95 /min [facility] Arterial blood by [facility] Pulse oximetry Systolic blood 2019-03-24 13:30:00 132 mm[Hg] [facility] Medicine Diastolic blood 2019-03-24 13:30:00 77 mm[Hg] [facility] Medicine Heart rate 2019-03-24 13:30:00 101 /min [facility] Body temperature 2019-03-24 13:30:00 37.11 Valerie [facility] Body height 2019-03-24 13:30:00 154.9 cm [facility] Body weight 2019-03-24 13:30:00 85.004 kg [facility] BMI 2019-03-24 13:30:00 35.41 kg/m2 [facility] Systolic blood 2019-03-18 19:43:00 118 mm[Hg] [facility] Medicine Diastolic blood 2019-03-18 19:43:00 76 mm[Hg] [facility] Medicine Heart rate 2019-03-18 19:43:00 100 /min [facility] Body temperature 2019-03-18 19:43:00 36.67 Valerie [facility] Respiratory rate 2019-03-18 19:43:00 16 /min [facility] Body height 2019-03-18 19:43:00 154.9 cm [facility] Body weight 2019-03-18 19:43:00 86.183 kg [facility] BMI 2019-03-18 19:43:00 35.90 kg/m2 [facility] Systolic blood 2019-03-03 13:10:00 128 mm[Hg] [facility] Medicine Diastolic blood 2019-03-03 13:10:00 75 mm[Hg] [facility] Medicine Heart rate 2019-03-03 13:10:00 101 /min [facility] Body temperature 2019-03-03 13:10:00 36.67 Valerie [facility] Respiratory rate 2019-03-03 13:10:00 16 /min [facility] Body height 2019-03-03 13:10:00 154.9 cm [facility] Body weight 2019-03-03 13:10:00 86.183 kg [facility] BMI 2019-03-03 13:10:00 35.90 kg/m2 [facility] Systolic blood 2019-02-10 13:18:00 159 mm[Hg] [facility] Medicine Diastolic blood 2019-02-10 13:18:00 74 mm[Hg] [facility] Medicine Heart rate 2019-02-10 13:18:00 107 /min [facility] Body temperature 2019-02-10 13:18:00 36.83 Valerie [facility] Respiratory rate 2019-02-10 13:18:00 16 /min [facility] Body height 2019-02-10 13:18:00 154.9 cm [facility] Body weight 2019-02-10 13:18:00 88.905 kg [facility] BMI 2019-02-10 13:18:00 37.03 kg/m2 [facility] Systolic (mm Hg) 2020-12-22 13:30:00 Gabriel Crouch Diastolic (mm Hg) 2020-12-22 13:30:00 Noah Crouch Heart Rate 2020-12-22 13:30:00 [facility] Respitory Rate 2020-12-22 13:30:00 Joshua Fonseca Height 2020-12-22 13:30:00 152.4 cm [facility] Weight 2020-12-22 13:30:00 David Crouch BMI Calculated 2020-12-22 13:30:00 Memori al [place] Systolic (mm Hg) 2020-12-08 20:25:00 Gabriel riaalec [place] Diastolic (mm Hg) 2020-12-08 20:25:00 Mem orial [place] Heart Rate 2020-12-08 20:25:00 David Crouch Respitory Rate 2020-12-08 20:25:00 Joshua Fonseca Height 2020-12-08 20:25:00 152.4 cm David Crouch Weight 2020-12-08 20:25:00 David Crouch BMI Calculated 2020-12-08 20:25:00 Joshua al [place] BP Diastolic 2017-07-26 00:00:00 76 mm[Hg] [facility] Height 2017-07-26 00:00:00 60 [in_i] [facility] BMI (Body Mass Index) 2017-07-26 00:00:00 38.9 kg/m2 [facility] BP Systolic 2017-07-26 00:00:00 132 mm[Hg] [facility] Body Weight 2017-07-26 00:00:00 199 [lb_av] [facility] Procedures Procedure Date / Time Performing Clinician Source Performed COMPREHENSIVE METABOLIC 2020-05-24 06:00:00 Azael Bermudez [facility] CBC W ABSOLUTE NEUTROPHIL 2020-05-24 06:00:00 Azael Bermudez [facility] ELECTROCARDIOGRAM COMPLETE 2019-04-28 16:44:00 Larry Potts [facility] Radical mastectomy [facility]ie [facility] Hernia Repair [facility] Renal Abscess Open Drain [facility] Plan of Care Planned Activity Planned Date Details Comments Source Future Scheduled 2022-01-29 DEXA BONE DENSITY SPINE Expected: [facility] [employer] Test 00:00:00 AND HIP [code = 38409] 01/29/2022, of Me dicine Expires: 08/01/2022 Future Scheduled 2021-08-01 CT CHEST LOW DOSE Ordered: [facility] [employer] Test 13:42:19 NODULE WO CONTRAST 08/01/2021 of Medici ne [code = 75342] Future Scheduled 2021-08-01 Screening for malignant [facility] [employer] Test 13:21:22 neoplasm of colon of Medicin e (procedure) [code = 199916623] Future Scheduled 2021-08-01 COVID-19 Vaccine (1) [place] [facility] [employer] Test 13:21:22 [code = COVID-19 of Medicine Vaccine (1)] Future Scheduled 2021-08-01 TETANUS SHOT (ADULT) [place] [facility] [employer] Test 13:21:22 [code = TETANUS SHOT of Medi cine (ADULT)] Future Scheduled 2021-08-01 BMI FOLLOW UP PLAN [facility] [employer] [facility] 13:21:22 [code = BMI FOLLOW UP of Med icine PLAN] Future Scheduled 2021-08-01 Hepatitis C screening [facility] Test 13:21:22 (procedure) [code = of Medic ine [id number]] Future Scheduled 2021-08-01 ZOSTER VACCINE (1 of 2) [facility] [employer] Test 13:21:22 [code = ZOSTER VACCINE of Me dicine (1 of 2)] Future Scheduled 2021-08-01 MEDICARE AWV (Initial) [facility] [employer] [facility] 13:21:22 [code = MEDICARE AWV of Medi cine (Initial)] Future Scheduled 2021-08-01 Pneumococcal 65+ (1 of [facility] [employer] Test 13:21:22 1 - PPSV23) [code = of Medic ine Pneumococcal 65+ (1 of 1 - PPSV23)] Future Scheduled 2021-08-01 FLU VACCINE > 6 MONTHS [facility] [employer] [facility] 13:21:22 [code = FLU VACCINE > 6 of M edicine MONTHS] Future Scheduled 2021-08-01 FALL SCREEN [code = [facility] 13:21:22 FALL SCREEN] of Medicine Future Scheduled 2021-08-01 Screening for malignant [facility] [employer] [facility] 13:21:22 neoplasm of breast of Medici ne (procedure) [code = 188781914] Future Scheduled 2021-06-07 Screening for malignant [facility] [employer] Test 15:35:54 neoplasm of colon of Medicin e (procedure) [code = 994108086] Future Scheduled 2021-06-07 COVID-19 Vaccine (1) [place] [facility] [employer] Test 15:35:54 [code = COVID-19 of Medicine Vaccine (1)] Future Scheduled 2021-06-07 TETANUS SHOT (ADULT) [place] [facility] [employer] Test 15:35:54 [code = TETANUS SHOT of Medi cine (ADULT)] Future Scheduled 2021-06-07 BMI FOLLOW UP PLAN [facility] [employer] [facility] 15:35:54 [code = BMI FOLLOW UP of Med icine PLAN] Future Scheduled 2021-06-07 Hepatitis C screening [facility] [employer] [facility] 15:35:54 (procedure) [code = of Medic ine [id number]] Future Scheduled 2021-06-07 ZOSTER VACCINE (1 of 2) [facility] [employer] Test 15:35:54 [code = ZOSTER VACCINE of Me dicine (1 of 2)] Future Scheduled 2021-06-07 MEDICARE IPPE (WELCOME [facility] [employer] [facility] 15:35:54 TO MEDICARE) [code = of Medi cine MEDICARE IPPE (WELCOME TO MEDICARE)] Future Scheduled 2021-06-07 Screening for [facility] 15:35:54 osteoporosis of Medicine (procedure) [code = 605472830] Future Scheduled 2021-06-07 Pneumococcal 65+ (1 of [facility] [employer] Test 15:35:54 1 - PPSV23) [code = of Medic ine Pneumococcal 65+ (1 of 1 - PPSV23)] Future Scheduled 2021-06-07 FLU VACCINE > 6 MONTHS [facility] [employer] Test 15:35:54 [code = FLU VACCINE > 6 of M edicine MONTHS] Future Scheduled 2021-06-07 Screening for malignant [facility] [employer] Test 15:35:54 neoplasm of breast of Medici ne (procedure) [code = 831666535] Future Scheduled 2021-06-07 FALL SCREEN [code = [facility] Test 15:35:54 FALL SCREEN] of Medicine Diagnostic Test 2021-06-07 ECHO, COMPLETE [code = Expected: [facility] [employer] Pending 00:00:00 [id number]] 06/07/2021, of Medicine Expires: 12/06/2021 Diagnostic Test 2020-01-19 CT CHEST ABDOMEN PELVIS Expected: [facility] [employer] Pending 00:00:00 W/WO CONTRAST [code = 01/19/2020, of Med icine 72560] Expires: 02/19/2020 Diagnostic Test 2019-07-21 MAMMO 3D DIAGNOSTIC Expected: [facility] [employer] Pending 00:00:00 LEFT [code = 45138-0] 07/21/2019, of Med icine Expires: 01/18/2021 Diagnostic Test 2019-07-21 ECHO, COMPLETE [code = Expected: [facility] [employer] Pending 00:00:00 [id number]] 07/21/2019, of Medicine Expires: 01/19/2020 Diagnostic Test 2019-03-18 US BREAST REFLECTOR Expected: [facility] [employer] Pending 00:00:00 LOCALIZATION RIGHT 03/18/2019, of [place] [code = 75065] Expires: 09/15/2020 Future Scheduled COLON CANCER SCREENING: [facility] [employer] [facility] COLONOSCOPY [code = of Medic ine COLON CANCER SCREENING: COLONOSCOPY] Future Scheduled MAMMOGRAM ANNUAL [code [facility] [employer] [facility] = MAMMOGRAM ANNUAL] of Medic ine Future Scheduled TETANUS SHOT (ADULT) [place] [facility] Test [code = TETANUS SHOT of Medi cine (ADULT)] Future Scheduled BMI FOLLOW UP PLAN [employer] [facility] [employer] [facility] [code = BMI FOLLOW UP of Med icine PLAN] Future Scheduled HEPATITIS C SCREENING [employer] [facility] [employer] [facility] [code = HEPATITIS C of Medic ine SCREENING] Future Scheduled HIV SCREENING [code = [employer] [facility] HIV SCREENING] of Medicine Future Scheduled CERVICAL CANCER [facility] Test SCREENING 3 YEAR FOLLOW of M edicine UP [code = CERVICAL CANCER SCREENING 3 YEAR FOLLOW UP] Future Scheduled FLU VACCINE > 6 MONTHS [facility] [employer] [facility] [code = FLU VACCINE > 6 of M edicine MONTHS] Future Scheduled MAMMO DIAGNOSTIC RIGHT Ordered: [facility] [employer] [facility] (US/BIOP IF NEEDED) 03/24/2019 of Medic ine [code = 75552-9] Future Scheduled US BREAST RIGHT [code = Ordered: [facility] [employer] Test 99698-6] 03/24/2019 of Medicine Future Scheduled COLON CANCER SCREENING: [facility] [employer] [facility] COLONOSCOPY [code = of Medic ine COLON CANCER SCREENING: COLONOSCOPY] Future Scheduled MAMMOGRAM ANNUAL [code [facility] [employer] [facility] = MAMMOGRAM ANNUAL] of Medic ine Future Scheduled TETANUS SHOT (ADULT) [place] [employer] Test [code = TETANUS SHOT of Medi cine (ADULT)] Future Scheduled BMI FOLLOW UP PLAN [employer] [facility] [code = BMI FOLLOW UP of Med icine PLAN] Future Scheduled HEPATITIS C SCREENING [employer] [facility] [code = HEPATITIS C of Medic ine SCREENING] Future Scheduled HIV SCREENING [code = [employer] [facility] HIV SCREENING] of Medicine Future Scheduled CERVICAL CANCER [facility] Test SCREENING 3 YEAR FOLLOW of M edicine UP [code = CERVICAL CANCER SCREENING 3 YEAR FOLLOW UP] Future Scheduled FLU VACCINE > 6 MONTHS [facility] [employer] [employer] Test [code = FLU VACCINE > 6 of M edicine MONTHS] Future Scheduled ELECTROCARDIOGRAM [employer] Test COMPLETE [code = 07871] of M edicine Future Scheduled COLON CANCER SCREENING: [facility] [employer] Test COLONOSCOPY [code = of Medic ine COLON CANCER SCREENING: COLONOSCOPY] Future Scheduled TETANUS SHOT (ADULT) [place] [employer] Test [code = TETANUS SHOT of Medi cine (ADULT)] Future Scheduled BMI FOLLOW UP PLAN [employer] [facility] [code = BMI FOLLOW UP of Med icine PLAN] Future Scheduled HEPATITIS C SCREENING [employer] [facility] [code = HEPATITIS C of Medic ine SCREENING] Future Scheduled HIV SCREENING [code = [employer] [facility] HIV SCREENING] of Medicine Future Scheduled CERVICAL CANCER [employer] Test SCREENING 3 YEAR FOLLOW of M edicine UP [code = CERVICAL CANCER SCREENING 3 YEAR FOLLOW UP] Future Scheduled FLU VACCINE > 6 MONTHS [employer] Test [code = FLU VACCINE > 6 of M edicine MONTHS] Future Scheduled MAMMOGRAM ANNUAL [code [employer] Test = MAMMOGRAM ANNUAL] of Medic ine Future Scheduled COLON CANCER SCREENING: [facility] Test COLONOSCOPY [code = of Medic ine COLON CANCER SCREENING: COLONOSCOPY] Future Scheduled TETANUS SHOT (ADULT) [employer] Test [code = TETANUS SHOT of Medi cine (ADULT)] Future Scheduled BMI FOLLOW UP PLAN [employer] Test [code = BMI FOLLOW UP of Med icine PLAN] Future Scheduled HEPATITIS C SCREENING [employer] Test [code = HEPATITIS C of Medic ine SCREENING] Future Scheduled HIV SCREENING [code = [employer] [facility] HIV SCREENING] of Medicine Future Scheduled CERVICAL CANCER [employer] SCREENING 3 YEAR FOLLOW of M edicine UP [code = CERVICAL CANCER SCREENING 3 YEAR FOLLOW UP] Future Scheduled FLU VACCINE > 6 MONTHS [employer] Test [code = FLU VACCINE > 6 of M edicine MONTHS] Future Scheduled MAMMOGRAM ANNUAL [code [employer] Test = MAMMOGRAM ANNUAL] of Medic ine Future Scheduled DEXA BONE DENSITY SPINE Ordered: [employer] [facility] AND HIP [code = 94015] 01/26/2020 of Me dicine Future Scheduled ECHO, COMPLETE [code = Ordered: [employer] [facility] 65302] 01/26/2020 of Medicine Future Scheduled COLON CANCER SCREENING: [facility] Test COLONOSCOPY [code = of Medic ine COLON CANCER SCREENING: COLONOSCOPY] Future Scheduled TETANUS SHOT (ADULT) [employer] Test [code = TETANUS SHOT of Medi cine (ADULT)] Future Scheduled BMI FOLLOW UP PLAN [employer] Test [code = BMI FOLLOW UP of Med icine PLAN] Future Scheduled HEPATITIS C SCREENING [employer] Test [code = HEPATITIS C of Medic ine SCREENING] Future Scheduled HIV SCREENING [code = [employer] [facility] HIV SCREENING] of Medicine Future Scheduled CERVICAL CANCER [employer] SCREENING 3 YEAR FOLLOW of M edicine UP [code = CERVICAL CANCER SCREENING 3 YEAR FOLLOW UP] Future Scheduled FLU VACCINE > 6 MONTHS [employer] Test [code = FLU VACCINE > 6 of M edicine MONTHS] Future Scheduled MAMMOGRAM ANNUAL [code [employer] Test = MAMMOGRAM ANNUAL] of Medic ine Future Scheduled COLON CANCER SCREENING: [employer] Test COLONOSCOPY [code = of Medic ine COLON CANCER SCREENING: COLONOSCOPY] Future Scheduled TETANUS SHOT (ADULT) [employer] Test [code = TETANUS SHOT of Medi cine (ADULT)] Future Scheduled BMI FOLLOW UP PLAN [employer] Test [code = BMI FOLLOW UP of Med icine PLAN] Future Scheduled HEPATITIS C SCREENING [employer] Test [code = HEPATITIS C of Medic ine SCREENING] Future Scheduled HIV SCREENING [code = [employer] [facility] HIV SCREENING] of Medicine Future Scheduled CERVICAL CANCER [employer] SCREENING 3 YEAR FOLLOW of M edicine UP [code = CERVICAL CANCER SCREENING 3 YEAR FOLLOW UP] Future Scheduled ZOSTER VACCINE (1 of 2) [employer] Test [code = ZOSTER VACCINE of Me dicine (1 of 2)] Future Scheduled FLU VACCINE > 6 MONTHS [employer] Test [code = FLU VACCINE > 6 of M edicine MONTHS] Future Scheduled MAMMOGRAM ANNUAL [code [employer] Test = MAMMOGRAM ANNUAL] of Medic ine Future Scheduled ECHO, COMPLETE [code = Ordered: [employer] 26016] 05/24/2020 of Medicine Future Scheduled CT CHEST ABDOMEN PELVIS Ordered: [employer] Test W CONTRAST [code = 05/24/2020 [place] [address]-6] Future Scheduled COLON CANCER SCREENING: [employer] Test COLONOSCOPY [code = of Medic ine COLON CANCER SCREENING: COLONOSCOPY] Future Scheduled TETANUS SHOT (ADULT) [employer] Test [code = TETANUS SHOT of Medi cine (ADULT)] Future Scheduled BMI FOLLOW UP PLAN [employer] Test [code = BMI FOLLOW UP of Med icine PLAN] Future Scheduled HEPATITIS C SCREENING [employer] Test [code = HEPATITIS C of Medic ine SCREENING] Future Scheduled HIV SCREENING [code = [employer] [facility] HIV SCREENING] of Medicine Future Scheduled CERVICAL CANCER [employer] SCREENING 3 YEAR FOLLOW of M edicine UP [code = CERVICAL CANCER SCREENING 3 YEAR FOLLOW UP] Future Scheduled ZOSTER VACCINE (1 of 2) [employer] Test [code = ZOSTER VACCINE of Me dicine (1 of 2)] Future Scheduled FLU VACCINE > 6 MONTHS [employer] Test [code = FLU VACCINE > 6 of M edicine MONTHS] Future Scheduled MAMMOGRAM ANNUAL [code [employer] Test = MAMMOGRAM ANNUAL] of Medic ine Future Scheduled OTHER SUPPLY [code = Ordered: [employer] Test NOCPT] 06/28/2020 of Medicine Future Scheduled COLON CANCER SCREENING: [employer] Test COLONOSCOPY [code = of Medic ine COLON CANCER SCREENING: COLONOSCOPY] Future Scheduled COVID-19 Vaccine [employer] [facility] Evaluation [code = of Medici ne COVID-19 Vaccine Evaluation] Future Scheduled TETANUS SHOT (ADULT) [employer] Test [code = TETANUS SHOT of Medi cine (ADULT)] Future Scheduled BMI FOLLOW UP PLAN [employer] Test [code = BMI FOLLOW UP of Med icine PLAN] Future Scheduled HEPATITIS C SCREENING [employer] Test [code = HEPATITIS C of Medic ine SCREENING] Future Scheduled HIV SCREENING [code = [employer] [facility] HIV SCREENING] of Medicine Future Scheduled CERVICAL CANCER [employer] [facility] SCREENING 3 YEAR FOLLOW of M edicine UP [code = CERVICAL CANCER SCREENING 3 YEAR FOLLOW UP] Future Scheduled ZOSTER VACCINE (1 of 2) [employer] Test [code = ZOSTER VACCINE of Me dicine (1 of 2)] Future Scheduled FLU VACCINE > 6 MONTHS [employer] Test [code = FLU VACCINE > 6 of M edicine MONTHS] Future Scheduled MEDICARE IPPE (WELCOME [employer] TO MEDICARE) [code = of Medi cine MEDICARE IPPE (WELCOME TO MEDICARE)] Future Scheduled MAMMOGRAM ANNUAL [code [employer] Test = MAMMOGRAM ANNUAL] of Medic ine Future Scheduled COLON CANCER SCREENING: [employer] Test COLONOSCOPY [code = of Medic ine COLON CANCER SCREENING: COLONOSCOPY] Future Scheduled MAMMOGRAM ANNUAL [code [employer] Test = MAMMOGRAM ANNUAL] of Medic ine Future Scheduled TETANUS SHOT (ADULT) [employer] Test [code = TETANUS SHOT of Medi cine (ADULT)] Future Scheduled BMI FOLLOW UP PLAN [employer] Test [code = BMI FOLLOW UP of Med icine PLAN] Future Scheduled HEPATITIS C SCREENING [employer] Test [code = HEPATITIS C of Medic ine SCREENING] Future Scheduled HIV SCREENING [code = [employer] [facility] HIV SCREENING] of Medicine Future Scheduled CERVICAL CANCER [employer] SCREENING 3 YEAR FOLLOW of M edicine UP [code = CERVICAL CANCER SCREENING 3 YEAR FOLLOW UP] Future Scheduled FLU VACCINE > 6 MONTHS [employer] Test [code = FLU VACCINE > 6 of M edicine MONTHS] Future Scheduled COLON CANCER SCREENING: [facility] Test COLONOSCOPY [code = of Medic ine COLON CANCER SCREENING: COLONOSCOPY] Future Scheduled [facility]AM[facility]GRAM ANNUAL [facility]] of Medic ine Future Scheduled TETANUS SHOT (ADULT) [employer] Test [code = TETANUS SHOT of Medi cine (ADULT)] Future Scheduled BMI FOLLOW UP PLAN [employer] Test [code = BMI FOLLOW UP of Med icine PLAN] Future Scheduled HEPATITIS C SCREENING [employer] Test [code = HEPATITIS C of Medic ine SCREENING] Future Scheduled HIV SCREENING [code = [employer] [facility] HIV SCREENING] of Medicine Future Scheduled CERVICAL CANCER [employer] SCREENING 3 YEAR FOLLOW of M edicine UP [code = CERVICAL CANCER SCREENING 3 YEAR FOLLOW UP] Future Scheduled FLU VACCINE > 6 MONTHS [facility] [code = FLU VACCINE > 6 of M edicine MONTHS] Future Scheduled MRI BRAIN W WO CONTRAST 1 Occurrences [facility] Test [code = 58537-0] starting of Medicine 04/05/2020 until 11/03/2020 Future Scheduled CBC W/AUTO DIFF WITH Every 2 Weeks fo r [facility] Test PLATELETS [code = 4 [place] [address]-0] starting 03/03/2019 until 03/03/2020 Future Scheduled COMPREHENSIVE METABOLIC Every 2 Weeks for [facility] Test PANEL [code = 44195-1] 4 Occurrences of M edicine starting 03/03/2019 until 03/03/2020 Encounters Start End Encounter Admission Attending Care Care Encounter Source Date/Time Date/Time Type Type Clinicians Facility Department ID 2021-08-01 2021-08-01 Office ED[facility]ARDO [facility] [id number] [facility] 13:14:59 15:33:48 Visit AZAEL Tee 350.1.13.21 College 0.2.7.2.686 of [id number] Medi jaqui 500 e 2021-08-01 2021-08-01 Outpatient [facility] [id number] [facility] 11:20:57 15:33:15 Colleg e of Medicin e 2021-08-01 2021-08-01 Outpatient BCM [facility] [id number] [facility] 11:20:17 15:05:13 [facility]in e 2021-06-14 2021-06-14 Outpatient BCM [facility] [id number] [facility] 14:23:14 16:07:13 [facility] Medicin e 2021-06-07 2021-06-07 Office ISAIAH Biggs [id number] [place] [address] 14:00:00 15:04:27 Visit Agustin AMBULATOR 350.1.13.21 College Y 0.2.7.2.686 [id number] Medi jaqui 375 e 2021-02-22 2021-02-22 Outpatient MHIE JOHNSONIE [id number] [facility] 13:00:00 13:00:00 02 l Miko 2021-02-17 2021-02-17 Outpatient BCM [facility] [id number] [facility] 08:27:19 14:49:52 Colleg e of Medicin e 2021-02-17 2021-02-17 [id number] 08:25:40 14:38:14 Colleg [employer] [facility] Medicin e 2021-01-24 2021-01-24 Outpatient AIDAN [facility] [id number] [facility] 13:59:27 15:03:41 MOTHAFFAR Wero ege of Medicin e 2020-12-22 2020-12-23 Outpatient nullFlavo MNA [id number] Memoria 13:30:00 04:59:59 r Neurology 01 l Edita Crouch 2020-12-08 2020-12-09 Outpatient nullFlavo MNA [id number] Memoria 20:15:00 04:59:59 r Neurology 00 l Edita Cruoch 2020-11-12 2020-11-12 Outpatient EL RIMAWI, [facility] [id number] SLE 00:00:00 00:00:00 MOTHAFFAR 2020-08-16 2020-08-16 Outpatient EL RIMAWI, [facility] [id number] SLE 00:00:00 00:00:00 MOTHAFFAR 2020-06-28 2020-06-28 Office Beau [facility] [id number] [facility] 14:30:00 16:31:18 Visit Katiadelroy AppiahNay 350.1.13.21 Co llege 0.2.7.2.686 of [id number] Medi jaqui 500 e 2020-06-07 2020-06-07 Outpatient EL AIDAN, [facility] [id number] [facility] 00:00:00 00:00:00 MOTHAFFAR 2020-06-07 2020-06-07 Outpatient RIMWILFRED, [facility] [id number] [facility] 00:00:00 00:00:00 MOTHAFFAR 2020-05-26 2020-05-26 Outpatient EL LIEN, [facility] [id number] [facility] 00:00:00 00:00:00 MARIBELL 2020-05-24 2020-05-24 Office Aidan, [facility] [id number] [facility] 13:15:25 15:49:02 Visit Jenniferkhalif AppiahNair 350.1.13.21 College Fahed 0.2.7.2.686 of [id number] Medi jaqui 500 e 2020-05-18 2020-05-18 Outpatient EL LIEN, [facility] [id number] [facility] 00:00:00 00:00:00 MARIBELL 2020-04-26 2020-04-26 Outpatient EL LIEN, [facility] [id number] [facility]H 00:00:00 00:00:00 MARIBELL 2020-04-05 2020-04-05 Office Aidan, [facility] [id number] [facility] 09:59:42 10:19:42 Visit Jennifersameerar Nay 350.1.13.21 College Fahed 0.2.7.2.686 of [id number] Medi jaqui 500 e 2020-01-26 2020-01-26 Office Aidan, [facility] 1.2.840.114 [id number] [facility] 11:36:50 11:56:50 Visit Jenniferaffar Nay 350.1.13.21 College Fahed 0.2.7.2.686 of [id number] Medi jaqui 500 e 2020-01-26 2020-01-26 Outpatient RIMAWI, [facility] [id number] [facility]H 00:00:00 00:00:00 MOTHAFFAR 2020-01-19 2020-01-19 Outpatient EL RIMAWI, [facility] [id number] [facility]H 00:00:00 00:00:00 MOTHAFFAR 2020-01-19 2020-01-19 Outpatient RIMAWI, [facility] [id number] [facility]H 00:00:00 00:00:00 MOTHAFFAR 2020-01-12 2020-01-12 Outpatient RIMAWI, [facility] [id number] [facility]H 00:00:00 00:00:00 MOTHAFFAR 2020-01-12 2020-01-12 Outpatient EL RIMAWI, [facility] [id number] SLEH 00:00:00 00:00:00 MOTHAFFAR 2019-08-25 2019-08-25 Outpatient SLEH SLEH [id number] SLEH 06:32:27 06:32:27 [id number] 2019-07-28 2019-07-28 Outpatient SLEH SLEH [id number] SLEH 06:54:04 06:54:04 [id number] 2019-07-21 2019-07-21 Office BRI Yanez 1.2.840.114 [id number] [facility] 13:36:52 15:49:23 Visit Tiago Tee 350.1.13.21 Co llege 0.2.7.2.686 of [id number] [facility] jaqui 500 e 2019-04-28 2019-04-28 Office ISAIAH Biggs 1.2.840.114 [id number] [facility] 10:22:37 13:12:27 Visit Agustin AMBULATOR 350.1.13.21 College Y 0.2.7.2.686 of [id number] Medi jaqui 315 e 2019-03-24 2019-03-24 Office BRI Bermudez 1.2.840.[id number] [place] [address] 07:52:56 09:30:52 Visit Mothkhalif AppiahNair 350.1.13.21 College Fahed 0.2.7.2.686 of [id number] Medi jaqui 500 e 2019-03-18 2019-03-18 Office Bonefas, [facility] 1.2.840.114 [id number] [facility] 14:37:27 16:00:47 Visit Nini Schulz Nay 350.1.13.21 College 0.2.7.2.686 of [id number] Medi jaqui 510 e 2019-03-03 2019-03-03 Office Marlin Rivera [facility] 1.2.840.114 [id number] [facility] 07:58:06 10:46:23 Visit Nay 350.1.13.21 Co llege 0.2.7.2.686 of [id number] Medi jaqui 500 e 2019-02-10 2019-02-10 Office AidanGINOM 1.2.840.114 [id number] [facility] 07:56:30 08:56:37 Visit Mothaffar AMBULATOR 350.1.13.21 College Fahed Y 0.2.7.2.686 of [id number] Medi jaqui 000 e 2018-09-20 2018-09-20 Outpatient [facility] [id number] Common 16:18:00 16:18:00 [facility] 2018-09-19 2018-09-19 Out[facility] [id number] Common 16:21:00 16:21:00 [facility] 2018-09-18 2018-09-18 Out[facility] [id number] Common 14:04:00 14:04:00 [facility] 2018-06-21 2018-06-21 Outpatient [facility] [id number] Common 14:15:00 14:15:00 [facility] 2017-07-26 2017-07-26 Yue [place]AN [place] - [id number] [facility] 00:00:00 00:00:00 Ervin Gould MD: [id number] [facility] - [address], [place] [id number] , Ph. Results Test Description Test Time Test Comments Results Result [facility] eve Comments MR, BRAIN, 2020-11-12 Unlisted Reason for WITHOUT / WITH IV 15:35:00 Exam - Click Yes CONTRAST and Enter Reason Below->YesUnlisted [facility] - Reason for MEDICAL CENTERName: Exam->Malignant GREGG BLAIR neoplasm of GARCIA : overlapping sites 1955 of right breast in Sex: female, estrogen F receptor positive FINAL REPORT EXAM: MRI BRAIN WITH AND WITHOUT CONTRAST History: 65-year-old female with headache and metastatic breast cancer.Comparison studies: None. Technique:Pre-contr ast: Sagittal T2; axial T1-IR, SWI, DWI, T2 FLAIRPost-contrast: Axial, coronal and sagittal T1.Intravenous contrast: 9.0 cc of Gadavist. Findings: Scalp: No abnormal signal. No masses.Bone marrow: Normal in signal intensity. Extra-axial: No masses, fluid collections or hemorrhage. Brain sulci: Appropriate for age.Ventricles: Normal in size. No hydrocephalus. Parenchyma: No abnormal signal intensities. No masses, hemorrhage, acute or chronic vascular insults. No enhancing abnormalities. Suprasellar region: No abnormalities..Cran iocervical junction: No abnormalities. Patent foramen magnum. No Chiari one malformation.Vessel s: Normal flow-voids in the arteries and sinuses.. IMPRESSION: No acute intracranial abnormality. No evidence of intracranial metastatic disease. Signed: Lenard Rodríguez MDReport Verified Date/Time: 11/12/2020 15:35:35 ME, CV ACCESS, 2020-08-16 ORDERS FOR REMOVAL FLUORO 16:50:00 OF IMPLANTED VASCULAR DEVICEREMOVAL OF [facility] LEFT MEDICAL CENTERName: UPPER CHESTReason GREGG BLAIR for Exam:->BREAST GARCIA : CANCER 1955 Sex: F FINAL REPORT Left chest port catheter History: Breast cancer, completion of chemotherapy Modality: None. Sedation: None. Fern Picker: Mich Laws MD. Life Scientists: None. Approach: Left anterior chest. Estimated blood loss: < 5 cc. Specimen: None. Technique: The procedure including risks and benefits were explained to the patient, who expressed understanding. After informed written consent was obtained, the patient's Left anterior chest region was prepped and draped in the usual sterile fashion. The skin was anesthetized with lidocaine. Incision was made over the previous incision line. The port and catheter were removed in total with blunt dissection. The pocket was flushed with normal saline. The skin was closed with 3-0 Monocryl and Dermabond. A sterile dressing was applied. The patient tolerated the procedure well and left the department in the same condition. Impression: Successful, uncomplicated removal of a Left Port-A-Cath. Signed: Mich Laws MDReport Verified Date/Time: 08/16/2020 16:50:47 Reading Location: [place] [address] Angio Body Reading Room 2020-08-16 11:55:00 Test Item Value Reference Range Interpretation Comme nts PARTIAL THROMBOPLASTIN TIME (BEAKER) (test code = 760) 27.5 seconds 22.5-36.0 PROTHROMBIN [id number] 11:54:00 Test Item Value Reference Range Interpretation Comments PROTIME (BEAKER) 12.2 seconds 11.9-14.2 (test code = 759) INR (BEAKER) (test 0.93 See_Comment [Automat ed message] code = 370) The system [employer] generated this result transmitted ref erence range: <=5.90. The reference range was not used to int erpret this result as normal/abnormal . Effective 11/20/2018: PT Reference Range ChangeNew: 11.9-14.2 Previous: 11.7- 14.7RECOMMENDED COUMADIN/WARFARIN INR THERAPY RANGESSTANDARD DOSE: 2.0-3.0 Includes: PROPHYLAXIS for venous thrombosis, systemic embolization; TREATMENT for venous thrombosis and/or pulmonary embolus.HIGH RISK: Target INR is2.5-3.5 for patients wiht mechanical heart valves.CBC W/PLT COUNT & AUTO [id number] 11:38:00 Test Item Value Reference Range Interpretation Comments WHITE BLOOD CELL COUNT (BEAKER) 7.2 K/ L 3.5-10.5 (test code = 775) RED BLOOD CELL COUNT (BEAKER) 4.02 M/ L 3.93-5.22 (test code = 761) HEMOGLOBIN (BEAKER) (test code = 12.2 GM/DL 11.2-15.7 410) HEMATOCRIT (BEAKER) (test code = 38.0 % 34.1-44.9 411) MEAN CORPUSCULAR VOLUME (BEAKER) 94.5 fL 79.4-94.8 (test code = 753) MEAN CORPUSCULAR HEMOGLOBIN 30.3 pg 25.6-32.2 (BEAKER) (test code = 751) MEAN CORPUSCULAR HEMOGLOBIN CONC 32.1 GM/DL 32.2-35.5 L (BEAKER) (test code = 752) RED CELL DISTRIBUTION WIDTH 12.5 % 11.7-14.4 (BEAKER) (test code = 412) PLATELET COUNT (BEAKER) (test 275 K/CU MM 150-450 code = 756) MEAN PLATELET VOLUME (BEAKER) 8.8 fL 9.4-12.3 L (test code = 754) NUCLEATED RED BLOOD CELLS 0 /100 WBC 0-0 (BEAKER) (test code = 413) NEUTROPHILS RELATIVE PERCENT 64 % (BEAKER) (test code = 429) LYMPHOCYTES RELATIVE PERCENT 25 % (BEAKER) (test code = 430) MONOCYTES RELATIVE PERCENT 8 % (BEAKER) (test code = 431) EOSINOPHILS RELATIVE PERCENT 3 % (BEAKER) (test code = 432) BASOPHILS RELATIVE PERCENT 1 % (BEAKER) (test code = 437) NEUTROPHILS ABSOLUTE COUNT 4.56 K/ L 1.56-6.13 (BEAKER) (test code = 670) LYMPHOCYTES ABSOLUTE COUNT 1.76 K/ L 1.18-3.74 (BEAKER) (test code = 414) MONOCYTES ABSOLUTE COUNT (BEAKER) 0.55 K/ L 0.24-0.36 H (test code = 415) EOSINOPHILS ABSOLUTE COUNT 0.21 K/ L 0.04-0.36 (BEAKER) (test code = 416) BASOPHILS ABSOLUTE COUNT (BEAKER) 0.05 K/ L 0.01-0.08 (test code = 417) IMMATURE GRANULOCYTES-RELATIVE 0 % 0-1 PERCENT (BEAKER) (test code = 2801) CT, CHEST, WITH IV [id number] 08:34:00Unlisted Reason for Exam - Click Yes and Enter Reason Below->YesUnlisted Reason for Exam->Malignant neoplasm of overlapping sites of right breast in female, estrogen [facility] : 1955 Sex: FFINAL REPORT CT of the chest, abdomen and pelvis, with contrast Clinical History: Unlisted Reason for ExamMalignant neoplasm of overlapping sites of right breast in female, estrogen receptor positive Technique: CT of the chest, abdomen and pelvis is performed withintravenous contrast administration. This exam was performed according to our departmental dose optimization program which includes automated exposure control, adjustment of the mA and/or kV accordingto patient's size and/or use of iterative reconstructive technique. Comparison Film: January 19, 2020 and June 09, 2019 Discussion: Status post right mastectomy. There is a left-sided Port-A-Cath. Nosupraclavicular, axillary, mediastinal or hilar lymphadenopathy. Heart and pericardium are unremarkable. A 6 mm nodule in the right upper lobe, a 4 mm subpleural nodule in the right lower lobe, an 8 x 5 mm nodule and a 5 mm nodule in the left lower lobe, and a 4 mm groundglass left upper lobe nodule are without interval change. No new nodule or mass is identified. No pleural effusion. Central airwaysare patent. A stable tiny hypodensity in segment 4 of liver is probably a cyst. No new liver mass. No biliary ductal dilatation and gallbladder is normal. The spleen contains calcified granulomas. The pancreas, adrenal glands are normal. Kidneys demonstrate no mass, hydronephrosis or radiopaque stone.No bowel obstruction, or abnormal bowel wall thickening. Normal appendix. There is mild degree of colonic diverticulosis. There is subtle fat stranding adjacent to a diverticula at the junction of descending and sigmoid colon, which may reflect mild degree of acute diverticulitis. In pelvis, bladder, uterus and adnexa are unremarkable. There is no ascites, free air or lymphadenopathy. Osseous structur es demonstrate degenerative changes. No suspicious bony lesion is identified. Impression: Stable pulmonary nodules. No metastasis identified in abdomen or pelvis. Question mild diverticulitis at the junction of descending and sigmoid colon, correlate clinically. Signed: Sophie Linares MDReport Verified Date/Time: 06/08/2020 08:34:22 Reading Location: [facility] B1 [id number] [facility] Consult Reading Room CT, ABDOMEN 2020-06-08 08:34:00Unlisted Reason for Exam - Click Yes and Enter Reason Below- >YesUnlisted Reason for Exam->Malignant neoplasm of overlapping sites of right breast in female, estrogen receptor positive [facility] : 1955 Sex: FFINAL REPORT CT of the chest, abdomen and pelvis, with contrast Clinical History: Unlisted Reason for ExamMalignant neoplasm of overlapping sites of right breast in female, estrogen receptor positive Technique: CT of the chest, abdomen and pelvis is performed withintravenous contrast administration. This exam was performed according to our departmental dose optimization program which includes automated exposure control, adjustment of the mA and/or kV accordingto patient's size and/or use of iterative reconstructive technique. Comparison Film: January 19, 2020 and June 09, 2019 Discussion: Status post right mastectomy. There is a left-sided Port-A-Cath. Nosupraclavicular, axillary, mediastinal or hilar lymphadenopathy. Heart and pericardium are unremarkable. A 6 mm nodule in the right upper lobe, a 4 mm subpleural nodule in the right lower lobe, an 8 x 5 mm nodule and a 5 mm nodule in the left lower lobe, and a 4 mm groundglass left upper lobe nodule are without interval change. No new nodule or mass is identified. No pleural effusion. Central airwaysare patent. A stable tiny hypodensity in segment 4 of liver is probably a cyst. No new liver mass. No biliary ductal dilatation and gallbladder is normal. The spleen contains calcified granulomas. The pancreas, adrenal glands are normal. Kidneys demonstrate no mass, hydronephrosis or radiopaque stone.No bowel obstruction, or abnormal bowel wall thickening. Normal appendix. There is mild degree of colonic diverticulosis. There is subtle fat stranding adjacent to a diverticula at the junction of descending and sigmoid colon, which may reflect mild degree of acute diverticulitis. In pelvis, bladder, uterus and adnexa are unremarkable. There is no ascites, free air or lymphadenopathy. Osseous structur es demonstrate degenerative changes. No suspicious bony lesion is identified. Impression: Stable pulmonary nodules. No metastasis identified in abdomen or pelvis. Question mild diverticulitis at the junction of descending and sigmoid colon, correlate clinically. Signed: Sophie Linares MDReport Verified Date/Time: 06/08/2020 08:34:22 Reading Location: [facility] B1 C013X Ortho Consult Reading Room -[id number] 15:24:00 Test Item Value Reference Range Interpretation Comments POC-CREATININE 0.7 mg/dL 0.6-1.3 : TESTED AT [facility] ([facility]) (test [address] BLDG code = 1859) A, [facility] 7 4155: Hand Tool Filer/Techni vick ID = [id number] for Karen Dickey POC-EGFR 84 mL/min/1.73M2 ([facility]) (test code = 1860) COMPREHENSIVE METABOLIC [id number] 21:14:33 Test Item Value Reference Range Interpretation Comments GLUCOSE (test code = See_Comment H [Autom ated message] 2345-7) The system CHE[employer]ROOM generated this result transmitted ref erence range: 70 - 99 MG/DL. The reference r massimo was not used to interpret this result as normal/abnor mal. BLOOD UREA NITROGEN See_Comment [Automa ashlee message] (test code = 3091-6) The [facility] tem which generated this result transmitted ref erence range: 8 - 23 M G/DL. The reference r massimo was not used to interpret this result as normal/abnor mal. CREATININE (test code = See_Comment [Au tomated message] 2160-0) The system [employer]RO[employer] generated this result transmitted ref erence range: 0.60 - 1 .30 MG/DL. The refe rence range was not u sed to interpret this result as normal/abnor mal. EGFR AA (test code = See_Comment [Autom ated message] 11397-0) The system [employer]RO[employer] generated this result transmitted ref erence range: >60 ML/MIN/1.73. Th e reference range was not used to int erpret this result as normal/abnormal . EGFR (test code = See_Comment [Automate d message] 07329-6) The system [employer]ROOM generated this result transmitted ref erence range: >60 ML/MIN/1.73. Th e reference range was not used to int erpret this result as normal/abnormal . BUN/CREAT RATIO (test See_Comment [Auto mated message] code = 3097-3) The system [facility] generated this result transmitted ref erence range: 6 - 28 R ATIO. The reference r massimo was not used to interpret this result as normal/abnor mal. SODIUM (test code = See_Comment [Automa ashlee message] 2951-2) The system [facility] generated this result transmitted ref erence range: 133 - 14 6 MEQ/L. The refe rence range was not u sed to interpret this result as normal/abnor mal. POTASSIUM (test code = See_Comment [Aut omated message] 2823-3) The system [facility] generated this result transmitted ref erence range: 3.5 - 5. 4 MEQ/L. The refe rence range was not u sed to interpret this result as normal/abnor mal. CHLORIDE (test code = See_Comment [Auto mated message] 2075-0) The system [facility] generated this result transmitted ref erence range: 100 - 11 2 MEQ/L. The refe rence range was not u sed to interpret this result as normal/abnor mal. CO2 (test code = See_Comment [Automated message] 1963-8) The system [facility] generated this result transmitted ref erence range: 21 - 30 MEQ/L. The reference r massimo was not used to interpret this result as normal/abnor mal. CALCIUM (test code = See_Comment H [Autom ated message] 57532-7) The system [facility] generated this result transmitted ref erence range: 8.5 - 10 .5 MG/DL. The refe rence range was not u sed to interpret this result as normal/abnor mal. PROTEIN TOTAL (test See_Comment [Automa ashlee message] code = 2885-2) The system [facility] generated this result transmitted ref erence range: 6.1 - 8. 1 G/DL. The reference r massimo was not used to interpret this result as normal/abnor mal. ALBUMIN (test code = See_Comment [Autom ated message] 79435-3) The system whic h generated this result transmitted ref erence range: 3.4 - 4. 8 G/DL. The reference r massimo was not used to interpret this result as normal/abnor mal. GLOBULINS, SERUM, TOTAL See_Comment [Au tomated message] (test code = 91668-7) The sy stem which generated this result transmitted ref erence range: 1.9 - 3. 7 G/DL. The reference r massimo was not used to interpret this result as normal/abnor mal. A/G RATIO (test code = See_Comment [Aut omated message] 1759-0) The system whic h generated this result transmitted ref erence range: 1.0 - 2. 6 RATIO. The refe rence range was not u sed to interpret this result as normal/abnor mal. BILIRUBIN TOTAL (test See_Comment [Auto mated message] code = 1974-2) The system ich generated this result transmitted ref erence range: <=1.2 MG /DL. The reference r massimo was not used to interpret this result as normal/abnor mal. ALKALINE PHOSPHATASE 170 U/L 30-132 H (test code = 6768-6) AST (SGOT) (test code = 35 U/L 7-56 1919-8) ALT (SGPT) (test code = 30 U/L 3-47 TESTING 1743-2) PERFORMED AT [facility], [facility] [address] [place] [address] CLIA NO. [id number] Unless Otherwis e Indicated, All Testing Performed At: [facility], [address] [place] [address] Laboratory Dire ctor: Sgiifredo murray M.D. CLIA Num slo [id number] Cap Accreditation N o. [id number] Lab Interpretation Abnormal (test code = 74257-8) [facility] W ABSOLUTE NEUTROPHIL [id number] 20:31:28 Test Item Value Reference Range Interpretation Comments WHITE BLOOD CELL COUNT See_Comment [Aut omated message] (test code = 03869-5) The sy stem which generated this result transmitted ref erence range: 3.5 - 10 .0 K/UL. The reference r massimo was not used to int erpret this result as normal/abnormal . RED BLOOD CELL COUNT See_Comment [Autom ated message] (test code = 06869-3) The sy stem which generated this result transmitted ref erence range: 3.80 - 5 .20 M/UL. The refer ence range was not u sed to interpret this result as normal/abnor mal. HEMOGLOBIN (test code = See_Comment [Au tomated message] 718-7) The system [employer] h generated this result transmitted ref erence range: 12.0 - 1 6.0 G/DL. The refer ence range was not u sed to interpret this result as normal/abnor mal. HEMATOCRIT (test code = 37.5 % 35-46 31059-1) MEAN CORPUSCULAR VOLUME 91.5 fL 80-99 (test code = 31492-7) MEAN CORPUSCULAR 30.2 PG 25-34 HEMOGLOBIN (test code = 55748-9) MEAN CORPUSCULAR See_Comment [Automated message] HEMOGLOBIN CONC (test The sy stem which code = 68602-9) generated th is result transmitted ref erence range: 31.0 - 3 6.0 G/DL. The refer ence range was not u sed to interpret this result as normal/abnor mal. RED CELL DISTRIBUTION 12.2 % 11.5-15 WIDTH (test code = 20806-8) NEUTROPHILS % (test 62 % 40-75 code = 30548-9) LYMPHOCYTES % (test 28 % 20-45 code = 87710-5) MONOCYTES % (test code 7 % 4-12 = 30034-3) EOSINOPHILS % (test 3 % 0-7 code = 11274-4) BASOPHILS % (test code 1 % 0-2 = 64634-3) PLATELET COUNT (test See_Comment T ESTING PERFORMED code = 70059-1) AT [facility], [place] [address] [place] [address] CLIA NO. [id number] [Au tomated message] The sy stem which generated this result transmit ashlee reference range : 130 - 400 K/UL. The r eference range was not u sed to interpret this result as normal/abnor mal. NEUTROPHILS ABSOLUTE See_Comment Unless COUNT (test code = Otherwise Indicated, 15597-5) All Testing Per formed At: [facility], [address] [place] [address], [place] [address] Laboratory Dire ctor: Sigifredo murray M.D. CLIA Numb er [id number] Cap Accreditation N o. [id number] [Auto mated message] The sy stem which generated this result transmit ashlee reference range : 1.50 - 7.50 K/UL. The reference range was not used to interpr et this result as normal/abnormal . [facility] [id number] 14:35:00Reason for Exam:->malignant neoplasm of overlapping sites of right breast in female, estrogen receptor positive; postmenopausal stateFINAL REPORT Exam: Bone mineral density study. History: Osteopenia. Comparison: None Discussion: Evaluation of the left hip and lumbar spine was performed utilizing DEXA Hologic bone densitometer. The study is technically adequate. Left hip total bone mineral density: 0.890gm/cm2, T-score is -0.4, Z-score is 0.8. Left hip femoral neck bone mineral density: 0.772gm/cm2, T-score is -0.7, Z-score is 0.8. Lumbar spine total bone mineral density:1.059gm/cm2, T-score is0.1, Z-score is 1.8. Impression:1. Normal bone mineral density of the left hip, fracture risk is not increased.2. Normal bone mineral density of the lumbar spine, fracture risk is not increased. Least significant change (LSC) for bone mineral density as provided by shelver is 0.023 g/cm2 for lumbar spine and 0.027 g/cm2 for total hip. 10 -year fracture risk per WHO Fracture Risk Assessment Tool (FRAX) for:Not reported because all T-scores at or above -1.0 The patient's fracture risk is compared to an age-matched control. Medical evaluation for secondary causes of low bone bone mineral density may be a ppropriate. Correlate clinically for the necessity and timing of the next bone mineral density study. Signed: Naif Vazquez MDReport Verified Date/Time: 01/26/2020 14:35:52 CT, CHEST, WITH IV [id number] 15:50:00FINAL REPORT TECHNIQUE: CT of the chest, abdomen, and pelvis WITH intravenouscontrast and WITHOUT oral contrast. Dose modulation, iterative reconstruction, and/or weight-based adjustment of the mA/kV was utilized to reduce the radiation dose to as low as reasonably achievable. INDICATION: Malignant neoplasm of overlapping sites of right breast in female, estrogen receptor positive. COMPARISON: CT from 06/09/2019. FINDINGS: LINES/TUBES: A left chest port has its tip at the superior cavoatrial junction. LUNGS AND AIRWAYS: A bulla in the right lower lobe measures 2.1 cm. Pulmonary nodules as follow:*A right upper lobe lung nodule on axial image 37 measures 0.6 cm, previously 0.5 cm.*A left lower lobe pulmonary nodule on axial image 74 measures 0.8 x 0.5 cm, previously 0.7 x 0.5 cm.*A left lower lobe point nodule on axial image 67 measures 0.4 cm, unchanged.*A left upper lobe groundglass nodule measures 0.4 cm on axial image 34, unchanged. PLEURA: The pleural spaces are clear.HEART AND MEDIASTINUM: The visualized thyroid gland is normal. No significant mediastinal, hilar, or axillary lymphadenopathy. The heart and pericardium are within normal limits. HEPATOBILIARY: The liver is mildly enlarged. A hypodensity in segment IV measures 0.5 cm and is too small to characterize, unchanged. Gallbladder is unremarkable. No biliary ductal dilatation.SPLEEN: No splenomegaly. Punctate calcified granulomas in the spleen.PANCREAS: No focal masses or ductal dilatation. ADRENALS: No adrenal nodules.KIDNEYS/URETERS: No hydronephrosis, stones, or masses.PELVIC ORGANS/BLADDER: Unremarkable. PERITONEUM/RETROPERITONEUM: No free air or fluid.LYMPH NODES: No lymphadenopathy.VESSELS: Nonspecific, prominent left pelvic vasculature. GI TRACT: No distention or wall thickening. Mild diverticulo sis of the sigmoid and left colon. The appendix is normal. BONES AND SOFT TISSUES: Prior right mastectomy. Moderate lumbar spine facet arthrosis. Mild degenerative disc changes of the thoracic spine. IMPRESSION: 1.Bilateral pulmonary nodules measure up to 0.7 cm in the left lower lobe. These are similar to the prior examination to minimally increased in size. The differences in size could be due to differences in slice thickness. 2.No metastatic disease in the abdomen or pelvis. Signed: Laura Severino MDReport Verified Date/Time: 01/19/2020 15:50:49 Reading Location: [facility] B1 C013X Ortho Consult ReadingRoom CT, ABDOMEN 2020-01-19 15:50:00FINAL REPORT TECHNIQUE: CT of the chest, abdomen, and pelvis WITH intravenouscontrast and WITHOUT oral contrast. Dose modulation, iterative reconstruction, and/or weight-based adjustment of the mA/kV was utilized to reduce the radiation dose to as low as reasonably achievable. INDICATION: Malignant neoplasm of overlapping sites of right breast in female, estrogen receptor positive. COMPARISON: CT from 06/09/2019. FINDINGS: LINES/TUBES: A left chest port has its tip at the superior cavoatrial junction. LUNGS AND AIRWAYS: A bulla in the right lower lobe measures 2.1 cm. Pulmonary nodules as follow:*A right upper lobe lung nodule on axial image 37 measures 0.6 cm, previously 0.5 cm.*A left lower lobe pulmonary nodule on axial image 74 measures 0.8 x 0.5 cm, previously 0.7 x 0.5 cm.*A left lower lobe point nodule on axial image 67 measures 0.4 cm, unchanged.*A left upper lobe groundglass nodule measures 0.4 cm on axial image 34, unchanged. PLEURA: The pleural spaces are clear.HEART AND MEDIASTINUM: The visualized thyroid gland is normal. No significant mediastinal, hilar, or axillary lymphadenopathy. The heart and pericardium are within normal limits. HEPATOBILIARY: The liver is mildly enlarged. A hypodensity in segment IV measures 0.5 cm and is too small to characterize, unchanged. Gallbladder is unremarkable. No biliary ductal dilatation.SPLEEN: No splenomegaly. Punctate calcified granulomas in the spleen.PANCREAS: No focal masses or ductal dilatation. ADRENALS: No adrenal nodules.KIDNEYS/URETERS: No hydronephrosis, stones, or masses.PELVIC ORGANS/BLADDER: Unremarkable. PERITONEUM/RETROPERITONEUM: No free air or fluid.LYMPH NODES: No lymphadenopathy.VESSELS: Nonspecific, prominent left pelvic vasculature. GI TRACT: No distention or wall thickening. Mild diverticulo sis of the sigmoid and left colon. The appendix is normal. BONES AND SOFT TISSUES: Prior right mastectomy. Moderate lumbar spine facet arthrosis. Mild degenerative disc changes of the thoracic spine. IMPRESSION: 1.Bilateral pulmonary nodules measure up to 0.7 cm in the left lower lobe. These are similar to the prior examination to minimally increased in size. The differences in size could be due to differences in slice thickness. 2.No metastatic disease in the abdomen or pelvis. Signed: Laura Severino MDReport Verified Date/Time: 01/19/2020 15:50:49 Reading Location: [facility] C013X Ortho Consult ReadingRoom CT, ABDOMEN 2019-06-09 14:16:00FINAL REPORT CT of the Chest, abdomen and [...] automated exposure control, adjustment of the mA and/orkV according to patient size and/or use of [...] Uterus and ovaries are unremarkable. The urinary bladderis contracted. No mass, adenopathy or ascites is [...] MDReport Verified Date/Time: 06/09/2019 14:16:37 Reading Location: [facility] C013Y CT Body Reading Room CT, CHEST, WITH [id number] 14:16:00FINAL REPORT CT of the Chest, abdomen and [...] automated exposure control, adjustment of the mA and/orkV according to patient size and/or use of [...] Uterus and ovaries are unremarkable. The urinary bladderis contracted. No mass, adenopathy or ascites is present in the abdomen or pelvis. No osteolytic or o steoblastic lesions seen in the dorsal spine, scapula, sternum, ribs, or pelvis. Impression: 1. Status post right mastectomy.2. Nodular lesions in the right upper and left lower lobe. Recommend follow-up with repeat CT of the chest in 6 months.3. Nonspecific subcentimeter hypodense lesion in the liver. Otherwise unremarkable CT of the abdomen and pelvis. Signed: Virgilio Salgadoeport Verified Date/Time: 06/09/2019 14:16:37 Reading Location: [facility] B1 C013Y CT Body Reading Room UE [id number] 13:19:00Surgical Pathology Report Case: [id number] Authorizing Provider: Nini Trejo, Collected: 05/13/2019 1219 MD Ordering Location: [facility] PERIOPERATIVE Received: 05/13/2019 1232 SERVICES Pathologist: Latesha Hernández MD Specimens: A) - Breast, Right, RIGHT MASTECTOMY WITH LOW AXILLARY NODE short stitch superior long lateral for margin B) - Lymph Node, [place], Right Axilla, Right sentinel node 325 (neoprobe) 6491 (sentimag) C) - Breast, Right,Right axilla non-sentinel node A. BREAST, RIGHT, MASTECTOMY WITH LOW AXILLARY NODE DISSECTION: - NO RESIDUAL CARCINOMA SEEN - TUMOR BED IDENTIFIED - ASSOCIATED WITHCALCIFICATIONS - INCLUDING STROMAL CALCIFICATIONS - AND OBLITERATED DUCTS WITH CALCIFICATIONS -BIOPSY SITE CHANGES (CLIP X 1) SEEN - [...] LYMPH NODE, RIGHT AXILLA, SENTINEL NODE, 325, 6491, BIOPSY: - ONE LYMPH NODE, NEGATIVE FOR CARCINOMA (0/1) - FOCAL FIBROSISC. LYMPH NODES, RIGHT AXILLA, NON-SENTINEL, AXILLARY DISSECTION; - SEVEN LYMPH NODES, NEGATIVE FOR CARCINOMA (0/7) - ONE WITH TREATMENT RELATED FIBROSIS Signing Pathologist Direct Phone Line: [phone] signed by Latesha Hernández MD on 05/20/2019 at 1:19 PMTUMOR STAGING (PATHOLOGY) S/P NEOADJUVANT THERAPYAnatomic site of tumor : Right breastHistologic type : No residual carcinomaHistologic grade : No residual carcinomaTumor size : No residual carcinomaPrimary tumor (T) :euI2Cuzrg node (N) : odJ2Oneyb grouping : complete pathologic responseMargins : Negative LYMPH NODE SUMMARYTotal # of sentinel lymph nodes : 1Total # of non-sentinel lymph nodes : 13Total # of positivesentinel lymph nodes : 0Total # of positive non-sentinel lymph nodes : 0INVASIVE CARCINOMA OF THE BREAST: Resection (Breast.Invasive - All Specimens)8th Edition - Protocol posted: 08/21/2018CLINICAL Clinical History: Prior presurgical (neoadjuvant) therapy for this diagnosis of invasive carcinomaSPECIMEN Procedure: Total mastectomy Specimen Laterality: Right TUMOR Tumor Site: Upper outer quadrant Clock Position of Tumor Site: 9 o'clock Histologic Type: No residual invasive carcinoma Histologic Grade ([place] Histologic Score): No residual invasive carcinoma Tumor [...] of Lymph Nodes Examined: 14 Number of [place] Nodes Examined: 1 PATHOLOGIC STAGE CLASSIFICATION (pTNM, AJCC 8th Edition) TNM Descriptors: y (post-treatment) Primary Tumor (pT): pT0 Regional Lymph Nodes (pN): Category (pN): pN0 ADDITIONAL FINDINGS Additional Pathologic Findings: Usual ductal hyperplasia, intraductal papilloma, sclerosing adenosis A,C. 24077 x 1, 79132 x 1B. 09419 x 1Malignant neoplasm of right female breast, [...] x 17 x 3 cm mastectomy specimen withattached axillary tail. The axillary tail measures 8.5 x 4 x 1.5 cm. The anterior surface of the specimen is covered by a elliptical skin measuring 16 x 9 cm. The areola measures 4 x 3.5 cm, and nipplemeasures 1.5 x 1.5 x 0.5 cm and is everted. The specimen is inked and serially sectioned from medialto lateral into 15 consecutively ordered slices. There [...] adipose tissue and 10% fibrous tissue. Sectioning throughthe axillary tail reveals multiple lymph nodes. The lymph nodes measure 0.3 up to 5 cm. There is a coil clip associated with 1.5 cm lymph node that is grossly fibrotic. A Mervat Accounting Systems Analyst is also identified.Clinical Application Consultant sections are submitted. Lymph nodes are submitted entirely.A1, patient care representative sections of medial margin, perpendicular sections; A2, patient care representative section of slice #4; A3, patient care representative section of slice #5; A4, A5, patient care representative sections of slice #6; A6, nipple; A7-A16, patient care representative sections of slice #7 (A7 and A8 are mirror sections, A7 and A8 contain tumor); A16-A20, (A16 contains tumor); A26-A34, patient care representative sections of slice #9 (A26 and A27 mirror sections, A26 and A27 contain tumor, A26 is associated with clip); A35-A41, patient care representative sections of slice #10; A42 and A43, patient care representative sections of slice #11; A44, patient care representative section of slice #12; A45 and [...] in formalin labeled with the patient's name, acce ssion number and "breast, right" is a 4.5 [...] C4, two whole possible nodes. KM/Uriah. BREAST, RIGHT,MASTECTOMY: - MARGINS ARE NEGATIVE. SEPARATE CLIP AND MERVAT GARBAGE PICK UP WORKER IN AXILLARY TAILResults were reported by Dr. Hernández to Dr. Trejo at 12:50 P.M. A to [facility], Department of [facility]ology, [address] [place] [address], [place] [address], DXYJ-GLUCOSE [id number] 15:09:00 Test Item Value Reference Range Interpretation Comments POC-GLUCOSE METER 166 mg/dL 70-110 H : Notified RN/MD: (MARLEN) (test code = TESTED AT [place] [address] 9104) [facility], [address]: Hand Tool Filer/Techni vick ID = [id number] for ROEL LAY SENTINEL NODE INJECTION, [id number] 10:01:00Reason for exam:- >right breast cancerFINAL REPORT PROCEDURE: SENTINEL NODE LOCALIZATION - NON IMAGING INDICATION: Right breast cancer PROTOCOL: A total of 1.2 mCi of Tc-99m tilmanocept was injected in the right breast by the nuclear logging engineer. One aliquot was injected subcutaneously inthe subareolar area, and one aliquot was injected intradermally at the 9 o'clock position. IMPRESSION: Radiopharmaceutical injection for intraoperative sentinel node localization. Signed: Colt Dee MDReport Verified Date/Time: 05/13/2019 10:01:55 Reading Location: [address] MedReading Room POCT-GLUCOSE [id number] 09:23:00 Test Item Value Reference Range Interpretation Comments POC-GLUCOSE METER 110 mg/dL 70-110 : TESTED A T [facility] 6720 ([employer]) (test code = DIOGO Avilez [facility], 1538) [address]: Hand Tool Filer/Techni vick ID = [id number] for KAHLIL FITCH RAD, CHEST, 2 [id number] 16:23:00Reason for Exam:->coughFINAL REPORT EXAMINATION: RAD, CHEST, 2 VIEWS INDICATION: cough COMPARISON: None FINDINGS:TUBES and LINES: Left anterior chest port catheter LUNGS: Lungs are well inflated. Mild perihilar peribronchial hazy opacity could be due to bronchitis There is noevidence of pneumonia or pulmonary edema. PLEURA: No pleural effusion or pneumothorax. HEART AND MED IASTINUM: The cardiomediastinal silhouette is unremarkable. BONES AND SOFT TISSUES: No acute osseous lesion. Soft tissues are unremarkable. UPPER ABDOMEN: No free air under the diaphragm. IMPRESSION: Mild perihilar peribronchial hazy opacity could be due to bronchitis Signed: Naif Vazquez MD Report Verified Date/Time: 01/20/2019 16:23:52 POCT-GLUCOSE [id number] 07:34:00 Test Item Value Reference Range Interpretation Comments POC-GLUCOSE METER 99 mg/dL 70-110 TESTED AT [facility] 6720 (MARLEN) (test code = [place] [address] 1538) MAXIME CV ACCESS, [id number] 19:48:00Reason for Exam:->c50.811FINAL REPORT Left chest port insertion History: Right breast cancer. Modality: Sonography and fluoroscopy. Sedation: Versed 1.0 mg and fentanyl 50 mcg given intravenously for conscious sedation. Vital signs were monitored throughout the procedure by a nurse, and remained stable. Physician intra-service time was 20 minutes. Fern Picker: Cameron Meléndez MD Life Scientists: OFELIA Joe Approach: Left external jugular vein [...] jugular vein, which was punctured under direct real- time ultrasound guidance with a micropuncture needle. An ultrasound image was saved to PACS. A 0.018 inch wire was placed through the needle into the right atrium. A 4 [place] micropuncture sheath was placed. A subcutaneous tunnel [...] the chest demonstrates the new left chest Port-A -Cath to lie in the expected position with its tip overlying the cavoatrial junction. Impression: Successful, uncomplicated placement of a left chest port. The port is ready for immediate use. Signed: Cameron Meléndez MDR[facility]port [facility] Verified Date/Time: 11/25/2018 19:48:03 Reading Location: [place] [id number] Angio Body Reading Room HROMBIN TIME/[id number] 12:29:00 Test Item Value Reference Range Interpretation Comments PROTIME (BEAKER) (test code = 15.6 seconds 11.9-14.2 H 759) INR (BEAKER) (test code = 370) 1.3 <=5.9 Effective 11/20/2018: PT Reference Range ChangeNew: 11.9-14.2 Previous: 11.7- 14.7RECOMMENDED COUMADIN/WARFARIN INR THERAPY RANGESSTANDARD DOSE: 2.0-3.0 Includes: PROPHYLAXIS for venous thrombosis, systemic embolization; TREATMENT for venous thrombosis and/or pulmonary embolus.HIGH RISK: Target INR is2.5-3.5 for patients wiht mechanical heart valves.[id number] 12:29:00 Test Item Value Reference Range Interpretation Comments PARTIAL THROMBOPLASTIN TIME 31.2 seconds 22.5-36.0 (BEAKER) (test code = 760) CBC W/PLT COUNT & AUTO [id number] 12:19:00 Test Item Value Reference Range Interpretation Comments WHITE BLOOD CELL COUNT (BEAKER) 8.4 K/ L 3.5-10.5 (test code = 775) RED BLOOD CELL COUNT (BEAKER) 4.36 M/ L 3.93-5.22 (test code = 761) HEMOGLOBIN (BEAKER) (test code = 12.8 GM/DL 11.2-15.7 410) HEMATOCRIT (BEAKER) (test code = 39.6 % 34.1-44.9 411) MEAN CORPUSCULAR VOLUME (BEAKER) 90.8 fL 79.4-94.8 (test code = 753) MEAN CORPUSCULAR HEMOGLOBIN 29.4 pg 25.6-32.2 (BEAKER) (test code = 751) MEAN CORPUSCULAR HEMOGLOBIN CONC 32.3 GM/DL 32.2-35.5 (BEAKER) (test code = 752) RED CELL DISTRIBUTION WIDTH 12.2 % 11.7-14.4 (BEAKER) (test code = 412) PLATELET COUNT (BEAKER) (test 296 K/CU MM 150-450 code = 756) MEAN PLATELET VOLUME (BEAKER) 9.0 fL 9.4-12.3 L (test code = 754) NUCLEATED RED BLOOD CELLS 0 /100 WBC 0-0 (BEAKER) (test code = 413) NEUTROPHILS RELATIVE PERCENT 63 % (BEAKER) (test code = 429) LYMPHOCYTES RELATIVE PERCENT 26 % (BEAKER) (test code = 430) MONOCYTES RELATIVE PERCENT 6 % (BEAKER) (test code = 431) EOSINOPHILS RELATIVE PERCENT 4 % (BEAKER) (test code = 432) BASOPHILS RELATIVE PERCENT 1 % (BEAKER) (test code = 437) NEUTROPHILS ABSOLUTE COUNT 5.27 K/ L 1.56-6.13 (BEAKER) (test code = 670) LYMPHOCYTES ABSOLUTE COUNT 2.16 K/ L 1.18-3.74 (BEAKER) (test code = 414) MONOCYTES ABSOLUTE COUNT (BEAKER) 0.48 K/ L 0.24-0.36 H (test code = 415) EOSINOPHILS ABSOLUTE COUNT 0.34 K/ L 0.04-0.36 (BEAKER) (test code = 416) BASOPHILS ABSOLUTE COUNT (BEAKER) 0.08 K/ L 0.01-0.08 (test code = 417) IMMATURE GRANULOCYTES-RELATIVE 0 % 0-1 PERCENT (BEAKER) (test code = 2801) Urinalysis macro (dipstick) panel - [id number] 08:23:00 Test Item Value Reference Range Interpretation Comments Color Color (test code = Color light yellow Color) Color Appearance (test code = clear Color Appearance) Color Glucose (test code = Color negative Glucose) Color Bilirubin (test code = negative Color Bilirubin) Color Ketones (test code = Color negative Ketones) Color Specific Pace (test 1.020 code = Color Specific Pace) Color Blood (test code = Color negative Blood) Color PH (test code = Color PH) 5.5 Color Protein (test code = Color negative Protein) Color Urobilinogen (test code = 0.2 Color Urobilinogen) Color Nitrites (test code = negative Color Nitrites) Color Leukocytes (test code = negative Color Leukocytes) [facility]
--- NOTE | 2022-01-14 21:46 | EDPHYS ---
Physician Documentation [facility] Name: Jessica Bahena Age: 66 yrs Sex: Female : 1955 Arrival Date: 01/14/2022 Time: 21:18 Bed 19 Private MD: ED Physician Harmeet Loyd HPI: 01/14 21:55 This 66 yrs old Female presents to ER via EMS with complaints of Generalized weakness. ms3 21:55 66-year-old female with past medical history of diverticulitis, diabetes mellitus, ms3 hypothyroid presents for weakness that is been ongoing for 6 to 7 days. Patient states she has a history of diverticulitis. Patient denies pain at this time. Endorses black stools, nausea, vomiting. Patient denies fevers or chills. Patient denies alleviating or inciting factors. Historical: - Allergies: 21:27 No Known Allergies; lg3 - PMHx: 21:27 breast cancer - tx at [facility]; Diabetes - NIDDM; High Cholesterol; Hyperlipidemia; lg3 Hypothyroidism; - PSHx: 21:27 right mastectomy; section; hernia repair; lg3 - Immunization history:: Adult Immunizations up to date, Client reports receiving the 2nd dose of the Covid vaccine. - Social history:: Smoking status: Patient denies any tobacco usage or history of. Patient/guardian denies using alcohol, street drugs. ROS: 21:55 Eyes: Negative for injury, pain, redness, and discharge, Neck: Negative for injury, ms3 pain, and swelling, Cardiovascular: Negative for chest pain, and palpitations. Respiratory: Negative for shortness of breath, cough, wheezing, and pleuritic chest pain. 21:55 Back: Negative for injury and pain, Skin: Negative for injury, rash, and discoloration. 21:55 Constitutional: Positive for body aches, fatigue. 21:55 Abdomen/GI: Positive for black/tarry stool. 21:55 All other systems are negative. Exam: 21:55 Constitutional: This is a well developed, well nourished patient who is awake, alert, ms3 and in no acute distress. Head/Face: Normocephalic, atraumatic. Neck: Trachea midline, no cervical lymphadenopathy. Supple, full range of motion without nuchal rigidity, or vertebral point tenderness. No Meningismus. Chest/axilla: Normal chest wall appearance and motion. Nontender with no deformity. Cardiovascular: Regular rate and rhythm with a normal S1 and S2. No gallops, murmurs, or rubs. Normal PMI, no JVD. No pulse deficits. Respiratory: Lungs have equal breath sounds bilaterally, clear to auscultation and percussion. No rales, rhonchi or wheezes noted. No increased work of breathing, no retractions or nasal flaring. Skin: Warm, dry with normal turgor. Normal color with no rashes, no lesions, and no evidence of cellulitis. MS/ Extremity: Pulses equal, no cyanosis. Neurovascular intact. Full, normal range of motion. Psych: Awake, alert, with orientation to person, place and time. Behavior, mood, and affect are within normal limits. 21:55 Abdomen/GI: Inspection: abdomen appears normal, Bowel sounds: normal, Palpation: abdomen is soft and non-tender, Rectal exam: rectal tone normal, Stool: grossly bloody, guaiac positive. Vital Signs: 21:24 BP 117 / 69; Pulse 88; Resp 13; Temp 98.1(O); Pulse Ox 99% on R/A; Weight 94.35 kg (R); lg3 Height 5 ft. 1 in. (154.94 cm) (R); 01/15 04:45 BP 126 / 71; Pulse 86; Resp 15 S; Pulse Ox 100% on R/A; lg3 01/14 21:24 Body Mass Index 39.30 (94.35 kg, 154.94 cm) lg3 MDM: 01/14 21:45 Patient medically screened. ms3 21:55 Differential diagnosis: gastritis, Diverticulitis vs AVM. Data reviewed:. ms3 01/15 02:31 Counseling: I had a detailed discussion with the patient and/or guardian regarding: the ms3 historical points, exam findings, and any diagnostic results supporting the discharge/admit diagnosis, lab results, radiology results, the need to transfer to another facility. ED course: Discussed case with Dr Izquierdo and he accepts patient.. 01/14 21:29 Order name: CBC with Diff ms3 01/14 21:29 Order name: CMP; Complete Time: 00:39 ms3 01/14 21:29 Order name: Lipase; Complete Time: 00:39 ms3 01/14 21:46 Order name: SARS RAPID; Complete Time: 22:56 ms3 01/14 23:32 Order name: Glucose, Ancillary Testing; Complete Time: 23:41 EDMS 01/14 21:29 Order name: IV Saline Lock; Complete Time: 23:21 ms3 01/14 21:29 Order name: Labs collected and sent; Complete Time: 23:21 ms3 01/14 21:36 Order name: CT Abdomen - Angio ms3 01/14 21:36 Order name: CT Pelvis Angio ms3 01/14 21:40 Order name: Abdomen Angio EDMS Administered Medications: 01/14 23:21 Drug: NS 0.9% 1000 ml Route: IV; Rate: 1 bolus; Site: left antecubital; vc1 01/15 04:44 Follow up: Response: No adverse reaction; IV Status: Completed infusion; IV Intake: lg3 1000ml 01:47 Drug: ProTONIX (pantoprazole) 80 mg Route: IVP; Site: left antecubital; vc1 01:47 Follow up: Response: No adverse reaction vc1 01:47 Drug: ProTONIX (pantoprazole) 8 mg/hr Route: IV; Rate: 25 ml/hr; Site: left antecubital;vc1 06:36 Follow up: IV Status: Infusion continued upon transfer lg3 Disposition Summary: 01/14/22 21:46 Transfer Ordered Reason: Higher level of care ms3 Condition: Fair ms3 Problem: new ms3 Symptoms: are unchanged ms3 Transfer Location: Other Acute Care Facility(01/15/22 05:35) ms3 Accepting Physician: Dr Izquierdo(01/15/22 06:44) vc1 Diagnosis - GI Bleed/ Gastrointestinal hemorrhage, unspecified ms3 - Anemia, unspecified ms3 - SARS-associated coronavirus as the cause of diseases classified elsewhere ms3 - Elevated creatinine ms3 Forms: - Medication Reconciliation Form ms3 - SBAR form ms3 Signatures: Dispatcher [employer] Susanna Olson, RN RN lg3 Harmeet Loyd DO DO ms3 Nahomy Calles RN RN vc1 Corrections: (The following items were deleted from the chart) 01/14 22:15 21:34 Abdomen Pelvis W Con+CT.RAD.BRZ ordered. EDMS EDMS 01/15 02:32 07/23 21:46 ms3 ms3 01/15 05:35 01/14 21:46 [facility] ms3 ms3 01/15 05:35 02:32 Dr Izquierdo ms3 ms3 05:36 05:35 Dr Izquierdo ms3 ms3 06:44 05:36 Dr Izquierdo ms3 vc1
--- NOTE | 2022-01-14 21:46 | ER ---
Nurse's Notes [facility] Name: Jessica Bahena Age: 66 yrs Sex: Female : 1955 Arrival Date: 01/14/2022 Time: 21:18 Bed 19 Private MD: Diagnosis: GI Bleed/ Gastrointestinal hemorrhage, unspecified;Anemia, unspecified;SARS-associated coronavirus as the cause of diseases classified elsewhere;Elevated creatinine Presentation: 01/14 21:24 Chief complaint: EMS states: pt not feeling well for 5-6 days. started with sore throat lg3 and fever. fever resolved but weakness, nausea, vomiting and dark stools started about 4 days ago. pt states she has a history of diverticulitis and thinks she is having a flare up and has not taken any of her home medications in at least 5 days. Coronavirus screen: Client denies travel out of the [place] in the last 14 days. At this time, the client does not indicate any symptoms associated with coronavirus-19. Ebola Screen: No symptoms or risks identified at this time. Initial Sepsis Screen: Does the patient meet any 2 criteria? No. Patient's initial sepsis screen is negative. Does the patient have a suspected source of infection? No. Patient's initial sepsis screen is negative. Risk Assessment: Do you want to hurt yourself or someone else? Patient reports no desire to harm self or others. Onset of symptoms is unknown. 21:24 Method Of Arrival: EMS: [facility] lg3 21:24 Acuity: STAS 3 lg3 Triage Assessment: 21:27 General: Appears in no apparent distress. comfortable, Behavior is calm, cooperative. lg3 Pain: Complains of pain in abdomen. EENT: No deficits noted. No signs and/or symptoms were reported regarding the EENT system. Neuro: No deficits noted. Level of Consciousness is awake, alert, obeys commands, Oriented to person, place, time, situation. Cardiovascular: No deficits noted. Denies chest pain, shortness of breath, Capillary refill < 3 seconds Clubbing of nail beds is absent JVD is absent Patient's skin is warm and dry. Respiratory: No deficits noted. Airway is patent Trachea midline Respiratory effort is even, unlabored, Respiratory pattern is regular, symmetrical, Breath sounds are clear bilaterally. GI: Reports lower abdominal pain, upper abdominal pain, diarrhea, bloody stool, intolerance of fluids, intolerance of food, vomiting. : No deficits noted. No signs and/or symptoms were reported regarding the genitourinary system. Derm: No deficits noted. No signs and/or symptoms reported regarding the dermatologic system. Skin is intact, is healthy with good turgor, Skin is dry, Skin temperature is warm. Musculoskeletal: Reports generalized weakness. Historical: - Allergies: 21:27 No Known Allergies; lg3 - PMHx: 21:27 breast cancer - tx at [facility]; Diabetes - NIDDM; High Cholesterol; Hyperlipidemia; lg3 Hypothyroidism; - PSHx: 21:27 right mastectomy; section; hernia repair; lg3 - Immunization history:: Adult Immunizations up to date, Client reports receiving the 2nd dose of the Covid vaccine. - Social history:: Smoking status: Patient denies any tobacco usage or history of. Patient/guardian denies using alcohol, street drugs. Screenin:35 Abuse screen: Denies threats or abuse. Denies injuries from another. Nutritional lg3 screening: No deficits noted. Tuberculosis screening: No symptoms or risk factors identified. Fall Risk None identified. Assessment: 21:35 General: see triage assessment. lg3 01/15 02:19 Reassessment: Patient appears in no apparent distress at this time. No changes from lg3 previously documented assessment. Patient and/or family updated on plan of care and expected duration. Pain level reassessed. Patient is alert, oriented x 3, equal unlabored respirations, skin warm/dry/pink. 04:45 Reassessment: Patient appears in no apparent distress at this time. No changes from lg3 previously documented assessment. Patient and/or family updated on plan of care and expected duration. Pain level reassessed. Patient is alert, oriented x 3, equal unlabored respirations, skin warm/dry/pink. Patient states feeling better. Vital Signs: 01/14 21:24 BP 117 / 69; Pulse 88; Resp 13; Temp 98.1(O); Pulse Ox 99% on R/A; Weight 94.35 kg (R); lg3 Height 5 ft. 1 in. (154.94 cm) (R); 01/15 04:45 BP 126 / 71; Pulse 86; Resp 15 S; Pulse Ox 100% on R/A; lg3 01/14 21:24 Body Mass Index 39.30 (94.35 kg, 154.94 cm) lg3 ED Course: 01/14 21:18 Patient arrived in ED. lg3 21:20 Harmeet Loyd DO is Attending Physician. ms3 21:24 Susanna Martinez, RN is Primary Nurse. lg3 21:27 Triage completed. lg3 21:27 Arm band placed on left wrist. lg3 21:35 Patient has correct armband on for positive identification. Placed in gown. Bed in low lg3 position. Call light in reach. Side rails up X2. Client placed on continuous cardiac and pulse oximetry monitoring. NIBP monitoring applied. site monitor on. Door closed. Noise minimized. Warm blanket given. 22:05 SARS RAPID Sent. lg3 23:21 CBC with Diff Sent. vc1 23:21 CMP Sent. vc1 23:21 Lipase Sent. vc1 23:21 Inserted saline lock: 22 gauge in left antecubital area, using aseptic technique. Blood vc1 collected. 01/15 00:36 Abdomen Angio In Process Unspecified. EDMS 00:36 CT Pelvis Angio In Process Unspecified. EDMS 04:42 No provider procedures requiring assistance completed. Patient transferred, IV remains lg3 in place. intact, No redness/swelling at site. Administered Medications: 01/14 23:21 Drug: NS 0.9% 1000 ml Route: IV; Rate: 1 bolus; Site: left antecubital; vc1 01/15 04:44 Follow up: Response: No adverse reaction; IV Status: Completed infusion; IV Intake: lg3 1000ml 01:47 Drug: ProTONIX (pantoprazole) 80 mg Route: IVP; Site: left antecubital; vc1 01:47 Follow up: Response: No adverse reaction vc1 01:47 Drug: ProTONIX (pantoprazole) 8 mg/hr Route: IV; Rate: 25 ml/hr; Site: left antecubital;vc1 06:36 Follow up: IV Status: Infusion continued upon transfer lg3 Medication: 04:43 VIS not applicable for this client. lg3 Intake: 04:44 IV: 1000ml; Total: 1000ml. lg3 Outcome: 01/14 21:46 ER care complete, transfer ordered by . ms3 01/15 04:42 Transferred by ground EMS to [facility], Transfer form completed. lg3 Condition: stable Instructed on the need for transfer, Demonstrated understanding of instructions. 06:44 Patient left the ED. vc1 Signatures: Dispatcher [employer] Susanna Olson, RN RN lg3 Harmeet Loyd DO DO ms3 Nahomy Calles RN RN vc1
[2022-01-14 22:47] LABS: SARS-CoV-2 Antigen Rapid Res Positive (Negative)
[2022-01-14] MEDS ORDERED: NA CHLORIDE 0.9% 1,000 ML ONE (23:24)
[2022-01-14 23:30] LABS: Absolute Lymphocytes (CBC) 1.2 K/uL (0.7-4.9); Hematocrit 30.1 % (36.0-45.0); Lymphocytes % 21.2 % (15.3-44.8); MCV 87.2 fL (80-100); MPV 7.4 fL (7.6-11.3); RBC Red Blood Cell Count 3.45 M/uL (3.86-4.86)
[2022-01-14 23:49] LABS: Albumin 3.5 g/dL (3.4-5.0); Potassium 4.2 mmol/L (3.5-5.1)
[2022-01-14 23:58] LABS: Bilirubin Total 0.2 mg/dL (0.2-1.0); Protein, Total 6.8 g/dL (6.4-8.2)
[2022-01-15] MEDS ORDERED: NA CHLORIDE 0.9% 250 ML ONE (01:44)
[2022-01-15] MEDS ORDERED: PANTOPRAZOLE 40 MG INJ ONE (01:44)
[2022-01-15 06:51] VITALS: TEMP 98.1
[2022-01-15 06:53] VITALS: BP 126/71; O2SAT 100
--- NOTE | 2022-01-16 15:49 | RAD REPORT ---
EXAM DESCRIPTION: CT - Abdomen Angio - 01/15/2022 6:52 am CLINICAL HISTORY: 66 years Female Rectal bleeding TECHNIQUE: Following the administration of intravenous contrast, multiple high-resolution axial imag es of the abdomen and pelvis were performed followed by sagittal and coronal reconstructed images. Coronal and sagittal MIP images were also performed. The CT study is performed according to ALARA (as low as reasonably achievable) or ALARA/IMAGE GENTLY, with automatic adjustment of mA and/or kV accor ding to patient size. Performed on: 01/15/2022 at 12:15 AM COMPARISON: Previous CT abdomen with and without contrast performed on 05/26/2021. CT abdomen and pel vis without contrast report from 03/19/2019. The images were unavailable for review. FINDINGS: CTA ABDOMEN AND PELVIS: Limitations: Please note, unenhanced images were not performed at this time. Only arterial phase imag es were submitted. Lung bases: The lung bases are clear. Liver: The liver is normal in size and configuration. No focal hepatic abnormalities are identified. Liver attenuation is within normal limits. Spleen: The spleen is normal is size, configuration and attenuation. Gallbladder and bile duct: The gallbladder is well distended and unremarkable. There is no biliary ductal dilatation. Pancreas: The pancreas is grossly normal in size and configuration. Adrenal Glands: The adrenal glands are normal in size and configuration. Kidneys: The kidneys are normal in size and configuration. There is no evidence of hydronephrosis. Th ere is no evidence of nephrolithiasis. No definite solid or cystic renal mass lesions are identified. Stomach: The stomach is grossly normal. There is no definite hiatal hernia. Bowel: The bowel gas pattern is non specific and non obstructive. There is occasional colonic diverti culosis. Appendix: The appendix is normal. Free air: There is no evidence of free air. Free fluid: There is no evidence of free fluid. Vasculature: The aorta is normal in caliber and contour.There are no significant atherosclerotic calc ifications along the abdominal aorta. The inferior vena cava is grossly unremarkable. There is no abn ormal blush of contrast identified to suggest active GI bleeding. See below for more detail. Lymphadenopathy: No pathologic lymphadenopathy is identified. Bladder: The bladder is well distended and smooth in contour. Reproductive: The uterus is grossly within normal limits. Bones: No acute osseous abnormalities are identified. Soft tissues: No focal soft tissue abnormalities are identified. There is a small fat-containing vent ral umbilical hernia. Aorta: The aorta is normal in caliber and contour. Celiac Artery: The celiac artery is patent and is normal in caliber and contour. SMA: The superior mesenteric artery is patent and is normal in caliber and contour. LEAH: The inferior mesenteric artery is patent and is normal in caliber and contour. Renal Arteries: The renal arteries are patent and are normal in caliber and contour. Common Iliac Arteries: The common iliac arteries are patent and are normal in caliber and contour. External Iliac Arteries: The external iliac arteries are patent and are normal in caliber and contour . Common Femoral Arteries: The right common femoral artery is patent and is normal in caliber and conto ur. The left common femoral artery is patent and is normal in caliber and contour. IMPRESSION: 1. Normal CTA of the abdomen and pelvis. There is no abnormal blush of contrast identi fied to suggest active GI bleeding. 2. Occasional colonic diverticulosis. 3. Small fat-containing ventral umbilical hernia. Electronically signed by: Jayne Boykin DO 01/15/2022 1:08 AM CDT Due to temporary technical issues with the PACS/Fluency reporting system, reports are being signed by the in house radiologists without review as a courtesy to insure prompt reporting. The interpreting radiologist is fully responsible for the content of the report.
== END 2022-01-15 06:44 ==
LOC: ER 21:10
DX: D64.9 Anemia, unspecified (principal); U07.1 COVID-19; R79.89 Other specified abnormal findings of blood chemistry; E11.9 Type 2 diabetes mellitus without complications; E03.9 Hypothyroidism, unspecified; E78.00 Pure hypercholesterolemia, unspecified; Z85.3 Personal history of malignant neoplasm of breast; Z90.11 Acquired absence of right breast and nipple
CPT/HCPCS: 96365; 96361; 85025; 36415; 82947; 83690; 80053; 72191; 74175; 99285; 96366; 87811; Q9967; C9113; J7050; J7030

== ENCOUNTER 2022-12-31 13:38 | Emergency (ER) | payer OTHER ==
--- OUTSIDE RECORDS SUMMARY | 2022-12-31 13:42 | XMS REPORT | Continuity of Care Document ---
:1955 Author Organization [facility] t Address [address] [place] [address] [address] [place] [address] Care Team Providers Name Role Phone CHRISTOSEDI JOSETTE BEDOYA Primary Care Physician Unavailable Jayne Rothman Attending Clinician Unavailable Karthikeyan Quinn Attending Clinician Milton JUSTICE, Tisha Tello Attending Clinician CORAZON FAIRBANKS Attending Clinician Unavailable Timbo RAINES, Deneen Aggarwal Attending Clinician [phone] Corazon Fairbanks MD Attending Clinician Nestor Bowens MD Attending Clinician Karthikeyan Quinn MD. Attending Clinician Yo Damian Attending Clinician AZAEL BERMUDEZ Attending Clinician Unavailable MARIBELL EMMANUEL Attending Clinician Unavailable NINI TREJO Attending Clinician Unavailable Jayne Rothman Admitting Clinician Unavailable Karthikeyan Quinn Admitting Clinician CORAZON FAIRBANKS Admitting Clinician Unavailable AZAEL BERMUDEZ Admitting Clinician Unavailable NINI TREJO Admitting Clinician Unavailable Payers Payer Name Policy Type Policy Number Effective Date Expiration Date [facility] [id number] 2018 CHOICE EXCHANGE 00:00:00 Problems Condition Condition Condition Status Onset Resolution Last Treating Co mments Source Name Details Category Date Date Treatment Clinician Date GI bleed GI bleed Disease [facility] Melena Melena Disease Active Overview[facility] g of this Medical 00 note Center might be different from the original. Added automatic ally from request for surgery [id number] Cancer of Cancer of Disease Active 2018-[address] [facility] [address] [facility] portion of portion of 00:00: Me dical right right 00 Center breast breast Breast Breast Disease Active 2018-[address] [facility] 00[facility] 00 Center Diabetes Diabetes Problem Active Rios ge mellitus Mellitus 2- Family 00:00: Practic 00 e Essential Essential Problem Active Federica huber hypertensi Hypertensi 2- Fa cora on on 00:00: Practic 00 e Kidney Kidney Problem Active [facility] Family 00:00: Practic 00 e Diverticul Problem Resolve 2021-11-25 Memoria itis Diverticul d 22:50:45 l (disorder) itis Partha n (disorder) Resolved Problem 11/25/2021 [facility] Vertigo Vertigo Problem Resolve 2021-11-25 M emoria (finding) (finding) d 22:50:45 l Resolved [place] Problem 11/25/2021 [facility] Backache Backache Problem Active 2021-11-25 Memoria (finding) (finding) 22:50:45 l Active [place] Problem 11/25/2021 [facility] 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-25 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 Partha n (disorder) (disorder) Active Problem 11/25/2021 [facility] Dupuytren' Dupuytren Problem Active 2021-11-25 Memoria s 's 22:50:45 l contractur contractur He rmann e e (disorder) (disorder) Active Problem 11/25/2021 [facility] Fatigue Fatigue Problem Active 2021-11-25 Me moria (finding) (finding) 22:50:45 l Active [place] Problem 11/25/2021 [facility] Hyperglyce Hyperglyc Problem Active 2021-11-25 Memoria jyotsna emia 22:50:45 l (disorder) (disorder) He rmann Active Problem 11/25/2021 [facility] Hyperlipid Hyperlipi Problem Active 2021-11-25 Memoria emia demia 22:50:45 l (disorder) (disorder) He rmann Active Problem 11/25/2021 [facility] Hypertensi Hypertens Problem Active 2021-11-25 Memoria ve silverio 22:50:45 l disorder, disorder, Herm sophie systemic systemic arterial arterial (disorder) (disorder) Active Problem 11/25/2021 [facility] Hypothyroi Hypothyro Problem Active 2021-11-25 Memoria dism idism 22:50:45 l (disorder) (disorder) He rmann Active Problem 11/25/2021 [facility] Lumbar Lumbar Problem Active 2021-11-25 Gabriel lou radiculopa radiculopa 22:50:45 l thy thy Miko (disorder) (disorder) Active Problem 11/25/2021 [facility] Pain in Pain in Problem Active 2021-11-25 Me moria wrist wrist 22:50:45 l (finding) (finding) Herm sophie Active Problem 11/25/2021 [facility] Paresthesi Paresthes Problem Active 2021-11-25 Memoria a ia 22:50:45 l (finding) (finding) Herm sophie Active Problem 11/25/2021 [facility] Peripheral Periphera Problem Active 2021-11-25 Memoria nerve l nerve 22:50:45 l disease disease Miko (disorder) (disorder) Active Problem 11/25/2021 [facility] Diabetes Diabetes Problem Active 2021-11-25 Memoria mellitus mellitus 22:50:45 l type 2 type 2 Miko (disorder) (disorder) Active Problem 11/25/2021 [facility] Pain in Pain in Problem Active 2021-11-25 Me moria thoracic thoracic 22:50:45 l spine spine Miko (finding) (finding) Active Problem 11/25/2021 [facility] Scoliosis Scoliosis Problem Active 2021-11-25 Memoria deformity deformity 22:50:45 l of spine of spine Partha n (disorder) (disorder) Active Problem 11/25/2021 [facility] Type 2 Type 2 Problem Active Common diabetes diabetes Spirit mellitus mellitus - [facility] without without St complicati complicati [place] on, on, Medical without without Center long-term long-term current current use of use of insulin insulin Breast Breast Problem Active Common lump lump Spirit - [facility] History of History of Problem Active C ommon renal renal Spirit calculi calculi - [facility] Encounter Encounter Problem Active Com mon for for Spirit screening screening - CH I mammogram mammogram St for breast for breast [facility] cancer cancer [facility] Encounter Encounter Problem Active Com mon for for Spirit gynecologi gynecologi - [facility] frank frank St examinatio examinatio [place] kes n without n without Medi frank abnormal abnormal Center finding finding Allergies, Adverse Reactions, Alerts Allergy Allergy Status Severity Reaction(s) Onset Inactive Treating Comm ents Source Name Type Date Date Clinician NO KNOWN Allergy Active [facility] ALLERGIE S No Known No Known Active Memori a Medicati Medicati l on on Miko Allergie Allergie s s Social History Social Habit Start Date Stop Date Quantity Comments Source History SDOH [facility] Alcohol Std Drinks Medica l Center History [facility] Alcohol Binge Medical Eugenia ter History [facility] Alcohol Comment Medical C enter History [facility] Transport Non-Med Medical Center Alcohol intake 2022-01-17 2022-01-[address] [facility] 00:00:00 00:00:00 non-drinker of Medical Ce nter alcohol (finding) History [facility] 2022-01-15 2022-01-[address] [facility] Transport Med 00:00:00 00:00:[address] History [facility] 2022-01-15 2022-01-[address] [facility] Housing Unable to 00:00:00 00:00:00 Medical Center Pay History [facility] 2022-01-15 2022-01-[address] [facility] Housing Places 00:00:00 00:00:00 Medical Ce nter Lived History [facility] 2022-01-15 2022-01-[address] [facility] Housing Homeless 00:00:00 00:00:00 Medical Center Last Year Social History 2020-12-08 2020-12-08 [facility] 20:32:19 20:32:19 Tobacco use and 2019-05-05 2019-05-[address] [facility] exposure 00:00:00 00:00:00 Medical Center History SDOH 2019-05-05 2019-05-[address] [facility] Alcohol Frequency 00:00:00 00:00:00 Medical Center Tobacco Comment 2019-05-05 2019-05-05 Social [facility]00 history Medical Center Sex Assigned At [address] [facility] 00:00:00 00:00:00 Medical Center Smoking Status Start Date Stop Date Source Never Smoker Ervin mahmood Former smoker 2019-05-05 00:00:00 2019-05-05 00:00:[address] [facility] Medications Ordered Filled Start Stop Current Ordering Indication Dosage Frequency Signature Comments Components Source Medication Medication Date Date Medication? Clinician (SIG) Name Name Missing or Yes 1{dose} QD Take [address] Non-Formula 7-26 Dose by [facility]ukes ry 19:51: mouth Medical Medication 08 daily Center EMERGEN - C . levothyroxi Yes 75ug Take [address] ne 7-26 mcg by [facility]ukes (SYNTHROID, 19:51: mouth Medic al LEVOTHROID) 08 Every Center 75 MCG morning on tablet an empty stomach. lisinopril 2021- No 5mg QD Take [address] (PRINIVIL,Z -17 01- by mouth Reina es ESTRIL) 5 15:12: 00:00 daily. Medic al MG tablet 26 :00 Center pantoprazol Yes 40mg Q.5D Take [address] e 7-26 tablet (40 [facility] (PROTONIX) 00:00: mg total) Me dical 40 MG 00 by mouth 2 Center tablet (two) times daily. ferrous Yes 324mg Take [address] sulfate 324 7-26 tablet [facility] mg (65 mg 00:00: (324 mg Medic al iron) TbEC 00 total) by Cent er mouth daily with breakfast Can take every other day if causing constipati on. pantoprazol 2021- No 20mg QD Take [address] e 7-24 07-24 by mouth [facility]ukes (PROTONIX) 10:47: 00:00 daily. Medi frank 20 MG 35 :00 Center tablet multivitami 2021- No 2{tbl} QD Take [address] n per 01-15 tablets by Lumeena tablet 10:47: 00:00 mouth Medical 20 :00 daily. Center Missing or 2021- No QD Take by [facility] Non-Formula 01-15 mouth [facility] ry 10:46: 00:00 daily Medical Medication 59 :00 NATURE [place] MADE PROBIOTIC . metFORMIN 2021- No 500mg Q.5D Take [address] (GLUCOPHAGE 01-15 mg by Amadeo -XR) 500 MG 10:46: 00:00 mouth 2 Me dical 24 hr 47 :00 (two) Center tablet times daily. Missing or 2021- No 1{tbl} QD Take [address] Non-Formula 01-15 tablet by Rosalva robledo ry 10:46: 00:00 mouth Medical Medication 29 :00 daily [place] WOMEN'S MULTIVITAM IN . magnesium 2021- No 400mg QD Take [address] oxide 01-15 mg by Amadeo (MAG-OX) 10:46: 00:00 mouth Medical 400 mg 14 :00 daily. [place] (241.3 mg magnesium) tablet levothyroxi 2021- No 50ug Take [address] ne 01-15 mcg by Amadeo (SYNTHROID, 10:45: 00:00 mouth Medi frank LEVOTHROID) 52 :00 Every Center 50 MCG morning on tablet an empty stomach. letrozole 2021- No 2.5mg QD Take 2.[address] (FEMARA) 01-15 mg by Amadeo 2.5 mg 10:45: 00:00 mouth Medical tablet 34 :00 daily. [place] geriatric 2021- No Take by [facility] multivitami 01-15 mouth. Amadeo ns-iron-min 10:44: 00:00 Medic al erals Liqd 43 :00 Center oral liquid atorvastati 2021- No 80mg QD Take [address] n (LIPITOR) 01-15 by mouth Reina es 80 MG 10:44: 00:00 daily. Medical tablet 28 :00 Center atorvastati 2021- No 40mg QD Take [address] n (LIPITOR) 01-15 07-24 by mouth Reina es 40 MG 10:44: 00:00 daily. Medical tablet 19 :00 Center Metformin 2020-06 Yes PO, 0 Memoria 2-01 Refill(s) l 19:34: multivitami Yes Daily, 0 Me moria n 6-16 Refill(s) l 21:40: multivitami 0 Yes Daily, 0 Me moria n 6-16 Refill(s) l 21:40: Zinc Yes 2 gummies Memoria 6-16 22 mg, PO, l 21:39: Daily, 0 Refill(s) Zinc Yes 2 gummies Memoria 6-16 22 mg, PO, l 21:39: Daily, 0 Refill(s) Hydrocortis Yes 0 Memori a one 10 6-16 Refill(s) l MG/ML / 21:38: Neomycin 00 3.5 MG/ML / Polymyxin B 46057 UNT/ML Otic Suspension Hydrocortis Yes 0 Memori a one 10 6-16 Refill(s) l MG/ML / 21:38: Neomycin 00 3.5 MG/ML / Polymyxin B [id number] UNT/ML Otic Suspension Emergen-C Yes 0 Memoria 6-16 Refill(s) l 21:36: Emergen-C Yes 0 Memoria 6-16 Refill(s) l 21:36: letrozole Yes 2.5 mg = 1 Me moria 2.5 mg oral 6-16 tab, PO, l tablet 21:35: Daily, 0 Refill(s) letrozole Yes 2.5 mg = 1 Me moria 2.5 mg oral 6-16 tab, PO, l tablet 21:35: Daily, 0 Refill(s) lisinopril Yes 5 mg = 1 Mem oria 5 mg oral 6-16 tab, PO, l tablet 21:34: Daily, 0 Refill(s) atorvastati 2021-0 Yes 40 mg = 1 M emoria n 40 mg 6-16 tab, PO, l oral tablet 21:34: Daily, 0 He rmann 00 Refill(s) lisinopril Yes 5 mg = 1 Mem oria 5 mg oral 6-16 tab, PO, l tablet 21:34: Daily, 0 Miko 00 Refill(s) atorvastati Yes 40 mg = 1 M emoria n 40 mg 6-16 tab, PO, l oral tablet 21:34: Daily, 0 He rmann 00 Refill(s) levothyroxi Yes 75 Memori a ne 75 mcg 6-16 microgram l (0.075 mg) 21:33: = 1 tab, Her davison oral tablet 00 PO, Daily, 0 Refill(s) levothyroxi Yes 75 Memori a ne 75 mcg 6-16 microgram l (0.075 mg) 21:33: = 1 tab, Her davison oral tablet 00 PO, Daily, 0 Refill(s) Amoxicillin Amoxicillin 2017-06 Yes Marta Brown 1 tablet Common 2-28 Spirit 00:00: - [facility] amoxicillin amoxicillin No amoxicilli [place] 500 500 [...] release 24 release 24 hr hr hr Probiotic Probiotic Yes Marta Brown not Common defined [facility] Magnesium Magnesium Yes Marta Brown not Common defined [facility] Vitamin Vitamin Yes Marta Brown not Com mon B-12 B-12 defined [facility] Oxybutynin Oxybutynin Yes Marta Brown not Common Chloride ER Chloride ER defined [facility] Metformin Metformin Yes Marta Brown not Common HCl HCl defined [facility] Womens Womens Yes Marta Brown not Commo n Multivitami Multivitami defined Spirit n n - [facility] Vital Signs Vital Name Observation Time Observation Value Comments Source HEIGHT 2022-01-15 10:00:00 152.4 cm WEIGHT 2022-01-15 10:00:00 94.348 kg HEIGHT 2022-01-15 10:00:00 152.4 cm WEIGHT 2022-01-15 10:00:00 94.348 kg Systolic blood 2022-01-17 16:54:00 116 mm[Hg] [facility] Diastolic blood 2022-01-17 16:54:00 67 mm[Hg] [facility] Heart rate 2022-01-17 16:54:00 87 /min [facility] Body temperature 2022-01-17 16:54:00 37.11 Valerie [facility] Respiratory rate 2022-01-17 16:54:00 18 /min [facility] Oxygen saturation in 2022-01-17 16:54:00 100 /min [facility] Arterial blood by Medical Ce nter Pulse oximetry Body height 2022-01-15 10:00:[address] [facility] Body weight 2022-01-15 10:00:[address] [facility] BMI 2022-01-15 10:00:00 40.62 kg/m2 [facility] Systolic (mm Hg) 2021-05-25 19:14:00 Gabriel rial [place] Diastolic (mm Hg) 2021-05-25 19:14:00 Mem orial Miko Heart Rate 2021-05-25 19:14:00 [facility] [place] Respitory Rate 2021-05-25 19:14:00 Memori al [place] Height 2021-05-25 19:14:00 152.4 cm Memorial Miko Weight 2021-05-25 19:14:00 [facility] [place] BMI Calculated 2021-05-25 19:14:00 Memori al Miko Systolic (mm Hg) 2021-02-22 18:25:00 Gabriel rial Miko Diastolic (mm Hg) 2021-02-22 18:25:00 Mem orial [place] Heart Rate 2021-02-22 18:25:00 [facility] [place] Respitory Rate 2021-02-22 18:25:00 Memori al [place] Height 2021-02-22 18:25:00 152.4 cm [facility] [place] Weight 2021-02-22 18:25:00 Memorial Miko BMI Calculated 2021-02-22 18:25:00 Memori al [place] Systolic (mm Hg) 2020-12-22 13:30:00 Gabriel rial Miko Diastolic (mm Hg) 2020-12-22 13:30:00 Mem orial [place] Heart Rate 2020-12-22 13:30:00 Memorial Miko Respitory Rate 2020-12-22 13:30:00 Memori al [place] Height 2020-12-22 13:30:00 152.4 cm Memorial Miko Weight 2020-12-22 13:30:00 Memorial Miko BMI Calculated 2020-12-22 13:30:00 Memori al [place] Systolic (mm Hg) 2020-12-08 20:25:00 Gabriel rial [place] Diastolic (mm Hg) 2020-12-08 20:25:00 Mem orial Miko Heart Rate 2020-12-08 20:25:00 Memorial Miko Respitory Rate 2020-12-08 20:25:00 Memori al Miko Height 2020-12-08 20:25:00 152.4 cm [facility] [place] Weight 2020-12-08 20:25:00 [facility] [place] BMI Calculated 2020-12-08 20:25:00 Memori al Miko BP Diastolic 2017-07-26 00:00:00 76 mm[Hg] [facility] Height 2017-07-26 00:00:00 60 [in_i] [facility] BMI (Body Mass Index) 2017-07-26 00:00:00 38.9 kg/m2 [facility] BP Systolic 2017-07-26 00:00:00 132 mm[Hg] [facility] Body Weight 2017-07-26 00:00:00 199 [lb_av] [facility] Procedures Procedure Date / Time Performed Performing Clinician Sourelizabeth e PREPARE LEUKO-REDUCED 2022-01-18 23:54:00 Regan Stanton [facility] TRANSFUSE LEUKO-REDUCED 2022-01-17 11:21:00 Regan Stanton [facility] RED BLOOD CELLS [facility] POCT-GLUCOSE METER 2022-01-17 06:14:00 Corazon Fairbanks [facility] CBC W/PLT COUNT & AUTO 2022-01-17 05:09:00 Karthikeyan Quinn [facility] CBC W/PLT COUNT & AUTO 2022-01-17 05:09:00 Karthikeyan Quinn [facility] BASIC METABOLIC PANEL 2022-01-17 05:09:00 Karthikeyan Quinn [facility] () [facility] MAGNESIUM 2022-01-17 05:09:[address] [facility] PHOSPHORUS 2022-01-17 05:09:[address] [facility] POCT-GLUCOSE METER 2022-01-16 21:15:00 [facility] 2022-01-16 11:50:00 [facility] ESOPHAGOGASTRODUODENOSCO 2022-01-16 11:15:00 Karthikeyan Quinn [facility] PY, WITH HEMORRHAGE Medical Cent er CONTROL CBC W/PLT COUNT & AUTO 2022-01-16 04:56:00 Abel Lu [facility] HEMOGLOBIN AND 2022-01-16 04:56:00 [facility] HEMATOCRIT [facility] CBC W/PLT COUNT & AUTO 2022-01-16 04:56:[address] [facility] BASIC METABOLIC PANEL 2022-01-16 04:56:00 Karthikeyan Quinn [facility] () [facility] MAGNESIUM 2022-01-16 04:56:00 Karthikeyan Quinn [facility] PHOSPHORUS 2022-01-16 04:56:[address] [facility] D-DIMER 2022-01-16 04:56:00 Tabitha [facility] C-REACTIVE PROTEIN 2022-01-16 04:56:[address] [facility] POCT-GLUCOSE METER 2022-01-16 04:25:[address] [facility] POCT-GLUCOSE METER 2022-01-15 20:12:[address] [facility] HEMOGLOBIN AND 2022-01-15 17:01:[address] [facility] HEMATOCRIT [facility] Center TYPE AND SCREEN, 2022-01-15 17:01:00 [facility] POCT-GLUCOSE METER 2022-01-15 16:03:[address] [facility] POCT-GLUCOSE METER 2022-01-15 12:16:[address] [facility] XR CHEST 1 VIEW PORTABLE 2022-01-15 11:35:00 [facility] CBC W/PLT COUNT & AUTO 2022-01-15 10:15:00 [facility] DIFFERENTIAL [facility] CBC W/PLT COUNT & AUTO 2022-01-15 10:15:00 [facility] BASIC METABOLIC PANEL 2022-01-15 10:15:[address] [facility] (7) [facility] Center MAGNESIUM 2022-01-15 10:15:00 [facility] PHOSPHORUS 2022-01-15 10:15:00 [facility] HEMOGLOBIN A1C 2022-01-15 10:15:00 [facility] EKG-SCANNED 2022-01-15 00:00:00 Provider, [facility] Radical mastectomy [facility] sophie Repair of umbilical [facility] hernia Delivery [facility] Hernia Repair [facility] Renal Abscess Open Drain [facility] Plan of Care Planned Activity Planned Date Details Comments Source Future Scheduled 2022-02-23 INFLUENZA VACCINE (#1) [facility] 00:00:00 [code = INFLUENZA Medical Ce nter VACCINE (#1)] Future Scheduled 2022-01-25 DXA SCAN [code = DXA [facility] Test 00:[facility]:00 SCAN] Medical Center Future Scheduled 2021-06-[address] [facility] 00:00:00 WELLNESS (YEAR 2 or Medical Center FIRST YEAR if no IPPE) [code = MEDICARE ANNUAL WELLNESS (YEAR 2 or FIRST YEAR if no IPPE)] Future Scheduled 2021-06-[address] [facility] 00:00:00 (12+) [code = Medical Center DEPRESSION SCREENING (12+)] Future Scheduled 2021-06-25 FALLS RISK SCREENING [facility] 00:00:00 [code = FALLS RISK Medical C enter SCREENING] Future Scheduled 2020 PNEUMOCOCCAL 65+ YRS ([address] [facility] Test 00:00:00 - PCV) [code = Medical Cente r PNEUMOCOCCAL 65+ YRS (1 - PCV)] Future Scheduled 2005 SHINGLES VACCINES ([address] [facility] Test 00:00:00 2) [code = SHINGLES [facility] Center VACCINES (1 of 2)] Future Scheduled 1974 DTAP/TDAP/TD VACCINES [facility] 00:00:00 (1 - Tdap) [code = Medical C enter DTAP/TDAP/TD VACCINES (1 - Tdap)] Future Scheduled 1973 HEPATITIS C SCREENING [facility] 00:00:00 [code = HEPATITIS C Medical Center SCREENING] Future Scheduled 1956-01-04 COVID-19 VACCINE (#1) [facility] 00:00:00 [code = COVID-[address] VACCINE (#1)] Future Scheduled 1955 Screening for malignant [facility] Test 00:00:00 neoplasm of breast Medical C enter (procedure) [code = 675637985] Future Scheduled 1955 CT Colonography (combo) [facility] Test 00:00:00 [code = CT Colonography [facility] Center (combo)] Future Scheduled 1955 Screening for malignant [facility] Test 00:00:00 neoplasm of colon Medical Ce nter (procedure) [code = 539210837] Future Scheduled 1955 Screening for malignant [facility] Test 00:00:00 neoplasm of colon Medical Ce nter (procedure) [code = 565163104] Future Scheduled 1955 Screening for malignant [facility] Test 00:00:00 neoplasm of colon Medical Ce nter (procedure) [code = 795369764] Future Scheduled 1955 Screening for malignant [facility] Test 00:00:00 neoplasm of colon Medical Ce nter (procedure) [code = 036741307] Future Scheduled 1955 Sigmoidoscopy [code = [facility] 00:00:00 Sigmoidoscopy] Medical Cente r Encounters Start End Encounter Admission Attending Care Care Encounter Source Date/Time Date/Time Type Type Clinicians Facility Department ID 2022-06-13 2022-06-14 [facility] [id number] Memoria 21:24:34 05:59:59 [facility] 2022-06-13 2022-06-13 Outpatient [facility] [id number] Memoria 15:24:34 23:59:59 r [facility] 2022-06-13 2022-06-13 Outpatient Stephan, [id number] 15:24:34 23:59:59 Jayne 8 2022-03-14 2022-03-15 Outpatient [facility] [id number] Memoria 17:29:58 04:59:59 r [facility] 2022-03-14 2022-03-14 Outpatient [facility] [id number] Memoria 12:29:58 23:59:59 r [facility] 2022-03-14 2022-03-14 Outpatient [place] [id number] 12:29:58 23:59:59 Karthikeyan B 8 2022-03-06 2022-03-06 Outside [place] [facility] [id number] 00:[facility]00 00:00:00 Orders Tisha Tello [facility] 2022-01-15 2022-01-17 Inpatient ER [facility] [id number] [facility] 08:10:00 19:45:00 [facility] Med 2022-01-15 2022-01-17 Hospital ER Deneen Izquierdo [facility] [id number] [facility] 08:10:00 19:45:00 Encounter Corazon Fairbanks [facility] 2022-01-16 2022-01-16 Anesthesia Nestor Bownes [facility] [id number] [facility] 11:15:00 11:30:00 Event Hector [facility] 2022-01-16 2022-01-16 Surgery Che[place] [facility] [id number] 11:00:00 11:30:00 [facility] 2022-01-15 2022-01-[address] [facility] [id number] [facility] 00:[facility]00 00:00:00 [facility] 2021-11-23 2021-11-23 Ambulatory nullFlavo MNA [id number] Memoria 18:15:00 18:15:00 Pre-Reg r Neurology 04 l Edita Crouch 2021-11-23 2021-11-23 Outpatient MHIE MHIE [id number] Memoria 13:15:00 13:15:00 04 alec Miko 2021-11-23 2021-11-23 Outpatient HOLLIE DamianMISCHER [id number] 13:15:00 13:15:00 Yo 04 John 2021-05-25 2021-05-26 Outpatient nullFlavo MNA [id number] Memoria 19:15:00 05:59:59 r Neurology 03 alec Edita Crouch 2021-05-25 2021-05-25 Outpatient HOLLIE DamianSCHER [id number] 13:15:00 23:59:59 Yo 03 John 2021-05-25 2021-05-25 Outpatient MHIE MHIE [id number] Memoria 13:15:00 13:15:00 03 alec Crouch 2021-02-22 2021-02-23 Outpatient nullFlavo MNA [id number] Memoria 18:00:00 04:59:59 r Neurology 02 l Edita Crouch 2021-02-22 2021-02-22 Outpatient HOLLIE Damian MHMISCHER [id number] 13:00:00 23:59:59 Yo 02 John 2021-02-22 2021-02-22 Outpatient MHIE MHIE [id number] Memoria 13:00:00 13:00:00 02 alec Crouch 2021-02-22 2021-02-22 Outpatient MHIE MHIE [id number] Memoria 13:00:00 13:00:00 02 alec Crouch 2020-12-22 2020-12-23 Outpatient nullFlavo MNA [id number] Memoria 13:30:00 04:59:59 r Neurology 01 l Edita Crouch 2020-12-22 2020-12-23 Outpatient nullFlavo MNA [id number] Memoria 13:30:00 04:59:59 r Neurology 01 alec Crouch 2020-12-22 2020-12-22 Outpatient HOLLIE Damian [facility]ARDS[facility]SERGO [id number] 08:30:00 23:59:59 Yo 01 John 2020-12-22 2020-12-22 Outpatient MHIE JOHNSONIE [id number] Memoria 08:30:00 08:30:00 01 alec Crouch 2020-12-08 2020-12-09 Outpatient nullFlavo MNA [id number] Memoria 20:15:00 04:59:59 r Neurology 00 l Edita Sutherlandann 2020-12-08 2020-12-09 Outpatient nullFlavo MNA [id number] Memoria 20:15:00 04:59:59 r Neurology 00 l Edita Sutherlandann 2020-12-08 2020-12-08 [id number] 15:15:00 23:59:59 Yo 00 John 2020-12-08 2020-12-08 Outpatient MHIE MHIE [id number] Memoria 15:15:00 15:15:00 00 alec Crouch 2020-11-12 2020-11-12 Outpatient TONY BERMUDEZ [facility] [id number] SLE 00:00:00 00:00:00 MOTHAFFAR 2020-08-16 2020-08-16 Outpatient TONY BERMUDEZ [facility] SLE [id number] SLE 00:00:00 00:00:00 MOTHAFFAR 2020-06-07 2020-06-07 Outpatient EL AIDAN, SLEH SLEH [id number] SLEH 00:00:00 00:00:00 MOTHAFFAR 2020-06-07 2020-06-07 Outpatient RIMWILFRED, SLEH SLEH [id number] SLEH 00:00:00 00:00:00 MOTHAFFAR 2020-05-26 2020-05-26 Outpatient TONY EMMANUEL, SLEH SLEH [id number] SLEH 00:00:00 00:00:00 MARIBELL 2020-05-18 2020-05-18 Outpatient TONY EMMANUEL, SLEH SLEH [id number] SLEH 00:00:00 00:00:00 MARIBELL 2020-04-26 2020-04-26 Outpatient TONY EMMANUEL, SLEH SLEH [id number] SLEH 00:00:00 00:00:00 MARIBELL 2020-01-26 2020-01-26 Outpatient AIDAN, SLEH SLEH [id number] SLEH 00:00:00 00:00:00 MOTHAFFAR 2020-01-19 2020-01-19 Outpatient EL AIDAN, SLEH SLEH [id number] SLEH 00:00:00 00:00:00 MOTHAFFAR 2020-01-19 2020-01-19 Outpatient RIMWILFRED, SLEH SLEH [id number] SLEH 00:00:00 00:00:00 MOTHAFFAR 2020-01-12 2020-01-12 Outpatient RIMWILFRED, SLEH SLEH [id number] SLEH 00:00:00 00:00:00 MOTHAFFAR 2020-01-12 2020-01-12 Outpatient EL AIDAN, SLEH SLEH [id number] SLEH 00:00:00 00:00:00 MOTHAFFAR 2019-08-25 2019-08-25 Outpatient SLEH SLEH [id number] SLEH 06:32:27 06:32:27 [id number] 2019-07-28 2019-07-28 Outpatient SLEH SLEH [id number] SLEH 06:54:04 06:54:04 [id number] 2018-09-20 2018-09-20 Outpatient [facility] [id number] Common 16:18:00 16:18:00 [facility] 2018-09-19 2018-09-19 Out[facility] [id number] Common 16:21:00 16:21:00 [facility] 2018-09-18 2018-09-18 [facility] [id number] Common 14:04:00 14:04:00 [facility] 2018-06-21 2018-06-21 [facility] [id number] Common 14:15:00 14:15:00 t Urgent Urgent Care [facility] 2017-07-26 2017-07-26 [facility] [place] - [id number] Village 00:00:00 00:00:00 Alec Velasco, [facility] [address] Lino pete MD: [id number] [facility] - e [address], [place] [place] [address] , Ph. Results Test Description Test Time Test Comments Results Result Comments Source Prepare Leuko-Red RBC 2022-01-18 23:54:00 Test Item Value Reference Range Interpretation Comme nts CROSSMATCH (test code = 2264) COMPATIBLE Unit ABO (test code = 2614431) A Neg UNIT NUMBER (test code = 934-0) [id number] Status (test code = 4527854) [place]_TIMEINCHART Blood Bank Product (test code = 2263) RED BLOOD CELLS PRODUCT CODE (test code = 933-2) [id number] [facility] [id number] 07:44:51 Test Item Value Reference Range Interpretation Comments POC-Glucose Meter (test 128 mg/dL 70-110 H : TE STED AT [facility] code = 1539) [address] [place] [address]: Sleeve Turner/Techni vick ID = [id number] for Jennifer Keita Lab Interpretation (test Abnormal code = 21333-9) [facility] [id number] 07:44:51 Test Item Value Reference Range Interpretation Comments POC-GLUCOSE METER 128 mg/dL 70-110 H : TESTED A T [facility] 1317 (BEAKER) (test code [address], = 1538) [facility] 77 [address]: Sleeve Turner/Techni vick ID = [id number] for Fatmata Cortez POCT-GLUCOSE [id number] 07:44:49 Test Item Value Reference Range Interpretation Comments POC-GLUCOSE METER 145 mg/dL 70-110 H : TESTED A T [facility] [address] (BEAKER) (test code [address], = 1538) [facility] 77 478: Sleeve Turner/Techni vick ID = [id number] for Fatmata Cortez [id number] 05:44:39 Test Item Value Reference Range Interpretation Comments MAGNESIUM (BEAKER) (test code = 2.0 mg/dL 1.5-3.0 627) Sleeve Turner ID - [id number] ID - [id number] ID - [id number] ID - [id number] W/PLT COUNT & AUTO DIFFERENTIAL 2022-01-17 05:43:19 Test Item Value Reference Range Interpretation Comments WHITE BLOOD CELL COUNT (BEAKER) 5.5 K/ L 4.0-10.0 (test code = 775) RED BLOOD CELL COUNT (BEAKER) 2.26 M/ L 4.00-5.00 L (test code = 761) HEMOGLOBIN (BEAKER) (test code = 6.9 GM/DL 12.0-15.5 L 410) HEMATOCRIT (BEAKER) (test code = 20.5 % 36.0-46.0 LL 411) MEAN CORPUSCULAR VOLUME (BEAKER) 90.7 fL 82.0-99.0 (test code = 753) MEAN CORPUSCULAR HEMOGLOBIN 30.5 pg 27.0-33.0 (BEAKER) (test code = 751) MEAN CORPUSCULAR HEMOGLOBIN CONC 33.7 GM/DL 32.0-36.0 (BEAKER) (test code = 752) RED CELL DISTRIBUTION WIDTH 12.7 % 12.0-15.0 (BEAKER) (test code = 412) PLATELET COUNT (BEAKER) (test 171 K/CU MM 150-430 code = 756) MEAN PLATELET VOLUME (BEAKER) 9.6 fL 6.0-11.5 (test code = 754) NUCLEATED RED BLOOD CELLS 0 /100 WBC 0-0 (BEAKER) (test code = 413) NEUTROPHILS RELATIVE PERCENT 46 % (BEAKER) (test code = 429) LYMPHOCYTES RELATIVE PERCENT 44 % (BEAKER) (test code = 430) MONOCYTES RELATIVE PERCENT 10 % (BEAKER) (test code = 431) EOSINOPHILS RELATIVE PERCENT 0 % (BEAKER) (test code = 432) BASOPHILS RELATIVE PERCENT 0 % (BEAKER) (test code = 437) NEUTROPHILS ABSOLUTE COUNT 2.55 K/ L 1.80-8.00 (BEAKER) (test code = 670) LYMPHOCYTES ABSOLUTE COUNT 2.39 K/ L 1.48-4.50 (BEAKER) (test code = 414) MONOCYTES ABSOLUTE COUNT (BEAKER) 0.52 K/ L 0.00-1.30 (test code = 415) EOSINOPHILS ABSOLUTE COUNT 0.01 K/ L 0.00-0.50 (BEAKER) (test code = 416) BASOPHILS ABSOLUTE COUNT (BEAKER) 0.01 K/ L 0.00-0.20 (test code = 417) IMMATURE GRANULOCYTES-RELATIVE 0 % 0-0 PERCENT (BEAKER) (test code = 2801) BASIC METABOLIC [id number] 05:43:03 Test Item Value Reference Range Interpretation Comments SODIUM (BEAKER) 140 meq/L 135-148 (test code = 381) POTASSIUM (BEAKER) 3.8 meq/L 3.6-5.5 (test code = 379) CHLORIDE (BEAKER) 110 meq/L 98-106 H (test code = 382) CO2 (BEAKER) (test 21 meq/L 20-29 code = 355) BLOOD UREA NITROGEN 24 mg/dL 10-26 (BEAKER) (test code = 354) CREATININE (BEAKER) 0.88 mg/dL 0.50-1.20 (test code = 358) GLUCOSE RANDOM 135 mg/dL 70-110 H (BEAKER) (test code = 652) CALCIUM (BEAKER) 8.5 mg/dL 8.5-10.5 (test code = 697) EGFR (BEAKER) (test 64 mL/min/1.73 ESTIMA ALEXX GFR IS code = 1092) sq m NOT ACCURATE CREATININE CLEARANCE IN PREDICTING GLOMERULAR FILTRATION RATE . ESTIMATED GFR I S NOT APPLICABLE FOR DIALYSIS PATIEN TS. Sleeve Turner ID - [id number] ID - [id number] ID - [id number] ID - [id number] ID - [id number] ID - [id number] ID - [id number] ID - [id number] ID - [id number] 05:41:44 Test Item Value Reference Range Interpretation Comments PHOSPHORUS (BEAKER) (test code = 2.7 mg/dL 2.5-4.5 604) Sleeve Turner ID - [id number]-RODHDOU [id number] 12:01:45 Test Item Value Reference Range Interpretation Comments POC-GLUCOSE METER 98 mg/dL 70-110 : TESTED A T [facility] [address] (BEAKER) (test code = [address], 1538) [facility] 77 [address]: Sleeve Turner/Techni vick ID = [id number] for Limb runner, Darrell [id number] 06:32:03 Test Item Value Reference Range Interpretation Comments D-DIMER QUANTITATIVE 0.33 MG/L FEU <0.50 Final Information ([facility]) (test code = (Auto Output) 671) REGARDING D-DIMER RESULTS: The 98% NPV (Negative Predictive Value) for DVT/PE exclusion is 0.50 mg/LFEU as suggested by the chinese medicine practitioner and as approved by the FDA.CBC W/PLT COUNT & AUTO [id number] 06:27:51 Test Item Value Reference Range Interpretation Comments WHITE BLOOD CELL COUNT (BEAKER) 4.9 K/ L 4.0-10.0 (test code = 775) RED BLOOD CELL COUNT (BEAKER) 2.39 M/ L 4.00-5.00 L (test code = 761) HEMOGLOBIN (BEAKER) (test code = 7.3 GM/DL 12.0-15.5 L 410) HEMATOCRIT (BEAKER) (test code = 21.6 % 36.0-46.0 L 411) MEAN CORPUSCULAR VOLUME (BEAKER) 90.4 fL 82.0-99.0 (test code = 753) MEAN CORPUSCULAR HEMOGLOBIN 30.5 pg 27.0-33.0 (BEAKER) (test code = 751) MEAN CORPUSCULAR HEMOGLOBIN CONC 33.8 GM/DL 32.0-36.0 (BEAKER) (test code = 752) RED CELL DISTRIBUTION WIDTH 12.5 % 12.0-15.0 (BEAKER) (test code = 412) PLATELET COUNT (BEAKER) (test 182 K/CU MM 150-430 code = 756) MEAN PLATELET VOLUME (BEAKER) 9.6 fL 6.0-11.5 (test code = 754) NUCLEATED RED BLOOD CELLS 0 /100 WBC 0-0 (BEAKER) (test code = 413) NEUTROPHILS RELATIVE PERCENT 56 % (BEAKER) (test code = 429) LYMPHOCYTES RELATIVE PERCENT 36 % (BEAKER) (test code = 430) MONOCYTES RELATIVE PERCENT 7 % (BEAKER) (test code = 431) EOSINOPHILS RELATIVE PERCENT 0 % (BEAKER) (test code = 432) BASOPHILS RELATIVE PERCENT 0 % (BEAKER) (test code = 437) NEUTROPHILS ABSOLUTE COUNT 2.75 K/ L 1.80-8.00 (BEAKER) (test code = 670) LYMPHOCYTES ABSOLUTE COUNT 1.79 K/ L 1.48-4.50 (BEAKER) (test code = 414) MONOCYTES ABSOLUTE COUNT (BEAKER) 0.36 K/ L 0.00-1.30 (test code = 415) EOSINOPHILS ABSOLUTE COUNT 0.00 K/ L 0.00-0.50 (BEAKER) (test code = 416) BASOPHILS ABSOLUTE COUNT (BEAKER) 0.00 K/ L 0.00-0.20 (test code = 417) IMMATURE GRANULOCYTES-RELATIVE 0 % 0-0 PERCENT (BEAKER) (test code = 2801) [id number] 06:22:40 Test Item Value Reference Range Interpretation Comments MAGNESIUM (BEAKER) (test code = 2.1 mg/dL 1.5-3.0 627) Sleeve Turner ID - [id number] ID - [id number] ID - [id number] ID - [id number] BASIC METABOLIC [id number] 06:21:15 Test Item Value Reference Range Interpretation Comments SODIUM (BEAKER) 138 meq/L 135-148 (test code = 381) POTASSIUM (BEAKER) 4.6 meq/L 3.6-5.5 (test code = 379) CHLORIDE (BEAKER) 108 meq/L 98-106 H (test code = 382) CO2 (BEAKER) (test 22 meq/L 20-29 code = 355) BLOOD UREA NITROGEN 37 mg/dL 10-26 H (BEAKER) (test code = 354) CREATININE (BEAKER) 0.95 mg/dL 0.50-1.20 (test code = 358) GLUCOSE RANDOM 135 mg/dL 70-110 H (BEAKER) (test code = 652) CALCIUM (BEAKER) 8.6 mg/dL 8.5-10.5 (test code = 697) EGFR (BEAKER) (test 59 mL/min/1.73 ESTIMA ALEXX GFR IS code = 1092) sq m NOT ACCURATE CREATININE CLEARANCE IN PREDICTING GLOMERULAR FILTRATION RATE . ESTIMATED GFR I S NOT APPLICABLE FOR DIALYSIS PATIEN TS. Sleeve Turner ID - [id number] ID - [id number] ID - [id number] ID - [id number] ID - ZPGC69Sdebihha ID - ZUHD34Wgpagzmt ID - [id number] ID - [id number] ID - [id number] [id number] 06:20:17 Test Item Value Reference Range Interpretation Comments C-REACTIVE PROTEIN (BEAKER) (test 0.13 mg/dL 0.00-0.50 code = 676) Sleeve Turner ID - [id number] 06:19:56 Test Item Value Reference Range Interpretation Comments PHOSPHORUS (BEAKER) (test code = 2.7 mg/dL 2.5-4.5 604) Sleeve Turner ID - [id number] AND [id number] 06:08:40 Test Item Value Reference Range Interpretation Comments HEMOGLOBIN (BEAKER) (test code = 7.3 GM/DL 12.0-15.5 L 410) HEMATOCRIT (BEAKER) (test code = 21.6 % 36.0-46.0 L 411) POCT-GLUCOSE [id number] 04:36:57 Test Item Value Reference Range Interpretation Comments POC-GLUCOSE METER 136 mg/dL 70-110 H : TESTED A T [facility] [address] (BEAKER) (test code [address], = 1538) [facility] [place] [address]: Sleeve Turner/Techni vick ID = [id number] for Jessica Mosley POCT-GLUCOSE [id number] 20:23:16 Test Item Value Reference Range Interpretation Comments POC-GLUCOSE METER 118 mg/dL 70-110 H : TESTED A T [facility] [address] (BEAKER) (test code [address], = 1538) [place] [address]: Sleeve Turner/Techni vick ID = [id number] for Jessica Mosley HEMOGLOBIN AND [id number] 17:08:15 Test Item Value Reference Range Interpretation Comments HEMOGLOBIN (BEAKER) (test code = 8.6 GM/DL 12.0-15.5 L 410) HEMATOCRIT (BEAKER) (test code = 24.8 % 36.0-46.0 L 411) POCT-GLUCOSE [id number] 16:14:34 Test Item Value Reference Range Interpretation Comments POC-GLUCOSE METER 179 mg/dL 70-110 H : TESTED A T [facility] [address] (BEAKER) (test code [address], = 1538) [place] [id number]: Sleeve Turner/Techni vick ID = [id number] for Rebecca Alegria RAD, CHEST, 1 VIEW, NON [id number] 12:53:00Reason for exam:->coughShould this be performed at the bedside?->Yes [facility] 1955 Sex: FFINAL REPORT TECHNIQUE: Frontal view of the chest. INDICATION: cough. COMPARISON: 01/20/2019. FINDINGS: LINES/TUBES: None. HEART AND MEDIASTINUM: Cardiomediastinal contour is within normal limits. LUNGS: The lungs are well inflated and clear. No consolidation or pulmonary edema. PLEURA: No pneumothorax. No significant pleural effusion. SOFT TISSUES AND BONES: Unremarkable. IMPRESSION:No acute cardiopulmonary process. Signed: Rebeca Hogue MDReport Verified Date/Time: 01/15/2022 12:53:14 POCT-GLUCOSE METER 2022-01-15 12:27:53 Test Item Value Reference Range Interpretation Comments POC-GLUCOSE METER 138 mg/dL 70-110 H : TESTED A T [facility] [address] (BEAKER) (test code [facility] [address], = 1538) [facility] [place] [address]: Sleeve Turner/Techni vick ID = [id number] for Rebecca Alegria BASIC METABOLIC [id number] 10:50:00 Test Item Value Reference Range Interpretation Comments SODIUM (BEAKER) 137 meq/L 135-148 (test code = 381) POTASSIUM (BEAKER) 3.9 meq/L 3.6-5.5 (test code = 379) CHLORIDE (BEAKER) 105 meq/L 98-106 (test code = 382) CO2 (BEAKER) (test 22 meq/L 20-29 code = 355) BLOOD UREA NITROGEN 62 mg/dL 10-26 H (BEAKER) (test code = 354) CREATININE (BEAKER) 1.39 mg/dL 0.50-1.20 H (test code = 358) GLUCOSE RANDOM 167 mg/dL 70-110 H (BEAKER) (test code = 652) CALCIUM (BEAKER) 8.6 mg/dL 8.5-10.5 (test code = 697) EGFR (BEAKER) (test 38 mL/min/1.73 ESTIMA ALEXX GFR IS code = 1092) sq m NOT ACCURATE CREATININE CLEARANCE IN PREDICTING GLOMERULAR FILTRATION RATE . ESTIMATED GFR I S NOT APPLICABLE FOR DIALYSIS PATIEN TS. Sleeve Turner ID - JAQUELYNNEOperator ID - JAQUELYNNEOperator ID - JAQUELYNNEOperator ID - JAQUELYNNEOperator ID - JAQUELYNNEOperator ID - JAQUELYNNEOperator ID - JAQUELYNNEOperator ID - JAQUELYNNEOperator ID - JAQUELYNNEOperator ID - [id number] 10:47:58 Test Item Value Reference Range Interpretation Comments MAGNESIUM (BEAKER) (test code = 2.1 mg/dL 1.5-3.0 627) Sleeve Turner ID - JAARLINLYNNEOperator ID - JAARLINLYNNEOperator ID - JAQUELYNNEOperator ID - [id number] 10:44:14 Test Item Value Reference Range Interpretation Comments PHOSPHORUS (BEAKER) (test code = 3.5 mg/dL 2.5-4.5 604) Sleeve Turner ID - CATERINAEHEMOGLOBIN [id number] 10:38:16 Test Item Value Reference Range Interpretation Comments HEMOGLOBIN A1C (BEAKER) (test code = 8.3 % 4.3-6.1 H 368) Sleeve Turner ID - CATERINAECBC W/PLT COUNT & AUTO [id number] 10:33:11 Test Item Value Reference Range Interpretation Comments WHITE BLOOD CELL COUNT (BEAKER) 4.7 K/ L 4.0-10.0 (test code = 775) RED BLOOD CELL COUNT (BEAKER) 2.78 M/ L 4.00-5.00 L (test code = 761) HEMOGLOBIN (BEAKER) (test code = 8.4 GM/DL 12.0-15.5 L 410) HEMATOCRIT (BEAKER) (test code = 24.5 % 36.0-46.0 L 411) MEAN CORPUSCULAR VOLUME (BEAKER) 88.1 fL 82.0-99.0 (test code = 753) MEAN CORPUSCULAR HEMOGLOBIN 30.2 pg 27.0-33.0 (BEAKER) (test code = 751) MEAN CORPUSCULAR HEMOGLOBIN CONC 34.3 GM/DL 32.0-36.0 (BEAKER) (test code = 752) RED CELL DISTRIBUTION WIDTH 12.3 % 12.0-15.0 (BEAKER) (test code = 412) PLATELET COUNT (BEAKER) (test 211 K/CU MM 150-430 code = 756) MEAN PLATELET VOLUME (BEAKER) 9.5 fL 6.0-11.5 (test code = 754) NUCLEATED RED BLOOD CELLS 0 /100 WBC 0-0 (BEAKER) (test code = 413) NEUTROPHILS RELATIVE PERCENT 61 % (BEAKER) (test code = 429) LYMPHOCYTES RELATIVE PERCENT 29 % (BEAKER) (test code = 430) MONOCYTES RELATIVE PERCENT 10 % (BEAKER) (test code = 431) EOSINOPHILS RELATIVE PERCENT 0 % (BEAKER) (test code = 432) BASOPHILS RELATIVE PERCENT 0 % (BEAKER) (test code = 437) NEUTROPHILS ABSOLUTE COUNT 2.85 K/ L 1.80-8.00 (BEAKER) (test code = 670) LYMPHOCYTES ABSOLUTE COUNT 1.36 K/ L 1.48-4.50 L (BEAKER) (test code = 414) MONOCYTES ABSOLUTE COUNT (BEAKER) 0.46 K/ L 0.00-1.30 (test code = 415) EOSINOPHILS ABSOLUTE COUNT 0.00 K/ L 0.00-0.50 (BEAKER) (test code = 416) BASOPHILS ABSOLUTE COUNT (BEAKER) 0.00 K/ L 0.00-0.20 (test code = 417) IMMATURE GRANULOCYTES-RELATIVE 0 % 0-0 PERCENT (BEAKER) (test code = 2801) MR, BRAIN, WITHOUT / WITH IV [id number] 15:35:00Unlisted Reason for Exam - Click Yes and Enter Reason Below->YesUnlisted Reason for Exam->Malignant neoplasm of overlapping sites of right breast in female, estrogen receptor positiveM[facility] : 1955 Sex: FFINAL REPORT EXAM: MRI BRAIN WITH AND WITHOUT CONTRAST History: 65-year-old female with headache and metastatic breast cancer.Comparison studies: None. Technique:Pre-contrast: Sagittal T2; axial T1-IR, SWI, DWI, T2 [...] insults. No enhancing abnormalities. Suprasellar region: No ab normalities..Craniocervical junction: No abnormalities. Patent foramen magnum. No Chiari one malformation.Vessels: Normal flow-voids in the arteries and sinuses.. IMPRESSION: No acute intracranial abnormality. No evidence of intracranial metastatic disease. Signed: Lenard Rodríguez MDReport Verified Date/T carter: 11/12/2020 15:35:35 ANG, CV ACCESS, [id number] 16:50:00ORDERS FOR REMOVAL OF IMPLANTED VASCULAR DEVICEREMOVAL OF PAS-PORT IN LEFT UPPER CHESTReason for Exam:- >[facility] : 1955 Sex: FFINAL REPORT Left chest port catheter History: Breast cancer, completion of chemotherapy Modality: None. Sedation: None. Care Director Rn: Mich Laws MD. Ramp Jockey: None. Approach: Left anterior chest. Estimated blood [...] 3-0 Monocryl and Dermabond. A sterile dressing wasapplied. The patient tolerated the procedure well and left the department in the same condition. Impression: Successful, uncomplicated removal of a Left Port-A-Cath. Signed: Mich Lawsepmarkel Verified Date/Time: 08/16/2020 16:50:47 Reading Location: [place] [address] Angio Body Reading Room APTT 2020-08-16 11:55:00 Test Item Value Reference Range Interpretation Comments PARTIAL THROMBOPLASTIN TIME 27.5 seconds 22.5-36.0 (BEAKER) (test code = 760) PROTHROMBIN TIME/[id number] 11:54:00 Test Item Value Reference Range Interpretation Comments PROTIME (BEAKER) 12.2 seconds 11.9-14.2 (test code = 759) INR (BEAKER) (test 0.93 See_Comment [Automat ed message] code = 370) The system [email or web address] generated this result transmitted ref erence range: <=5.90. The reference range was not used to int erpret this result as normal/abnormal . Effective 11/20/2018: PT Reference Range ChangeNew: 11.9-14.2 Previous: 11.7- 14.7RECOMMENDED COUMADIN/WARFARIN INR THERAPY RANGESSTANDARD DOSE: 2.0-3.0 Includes: PROPHYLAXIS for venous thrombosis, systemic embolization; TREATMENT for venous thrombosis and/or pulmonary embolus.HIGH RISK: Target INR is 2.5-3.5 for patients wiht mechanical heart valves.CBC W/PLT COUNT & AUTO [id number] 11:38:00 Test Item Value Reference Range Interpretation [...] code = 2801) CT, CHEST, WITH IV [id number] 08:34:00Unlisted Reason for Exam - Click Yes and Enter Reason Below->YesUnlisted Reason for Exam->Malignant neoplasm of overlapping sites of right breast in female, estrogen receptor positiveCOMMUNITY HOSP[facility] OF [facility]ENTERName: [facility]ESSICA [facility]LAIR : 1955 Sex: FFINAL REPORT CT of the chest, abdomen and pelvis, with contrast Clinical History: Unlisted Reason for ExamMalignant neoplasm of overlapping sites of right breast in female, estrogenreceptor positive Technique: CT of the chest, abdomen and pelvis is performed with intravenous contrast administration. This exam was performed according to our departmental dose optimization program which includes automated exposure control, adjustment of the mA and/or kV according to patient's size and/or use of iterative reconstructive technique. Comparison Film: January 19, 2020 and June 09, 2019 Discussion: Status post right mastectomy. There is a left-sided Port-A-Cath. No supraclavicular, axillary, mediastinal or hilar lymphadenopathy. Heart and [...] mass is identified. No pleural effusion. Central airways are patent. A stable tiny hypodensity in segment 4 of liver is probably a cyst. No new liver mass. No biliary ductal dilatation and gallbladder is normal. The spleen contains calcified granulomas. The pancreas, adrenal glands are normal. Kidneys demonstrate no mass, hydronephrosis or radiopaque stone. No bowel obstruction, or abnormal bowel wall thickening. Normal appendix. There is mild degree of colonic diverticulosis. There is subtle fat stranding adjacent to a diverticula at the junction of descending and sigmoid colon, which may reflect mild degree of acute diverticulitis. In pelvis, bladder, uterus and adnexa are unremarkable. There is no ascites, free air or lymphadenopathy. Osseous structures demonstrate degenerative changes. No suspicious bony lesion is identified. Impression: Stable pulmonary nodules. No metastasis identified in abdomen or pelvis. Question mild diverticulitis at the junction of descendingand sigmoid colon, correlate clinically. Signed: Sophie Linares MDReport Verified Date/Time: 06/08/2020 08:34:22 Reading Location: [facility] B1 [id number] Ortho Consult Reading Room CT, ABDOMEN 2020-06-08 08:34:00Unlisted Reason for Exam - Click Yes and Enter Reason Below- >YesUnlisted Reason for Exam->Malignant neoplasm of overlapping sites of right breast in female, estrogen receptor positive [facility] : 1955 Sex: FFINAL REPORT CT of the chest, abdomen and pelvis, with contrast Clinical History: Unlisted Reason for ExamMalignant neoplasm of overlapping sites of right breast in female, estrogenreceptor positive Technique: CT of the chest, abdomen and pelvis is performed with intravenous contrast administration. This exam was performed according to our departmental dose optimization program which includes automated exposure control, adjustment of the mA and/or kV according to patient's size and/or use of iterative reconstructive technique. Comparison Film: January 19, 2020 and June 09, 2019 Discussion: Status post right mastectomy. There is a left-sided Port-A-Cath. No supraclavicular, axillary, mediastinal or hilar lymphadenopathy. Heart and [...] mass is identified. No pleural effusion. Central airways are patent. A stable tiny hypodensity in segment 4 of liver is probably a cyst. No new liver mass. No biliary ductal dilatation and gallbladder is normal. The spleen contains calcified granulomas. The pancreas, adrenal glands are normal. Kidneys demonstrate no mass, hydronephrosis or radiopaque stone. No bowel obstruction, or abnormal bowel wall thickening. Normal appendix. There is mild degree of colonic diverticulosis. There is subtle fat stranding adjacent to a diverticula at the junction of descending and sigmoid colon, which may reflect mild degree of acute diverticulitis. In pelvis, bladder, uterus and adnexa are unremarkable. There is no ascites, free air or lymphadenopathy. Osseous structures demonstrate degenerative changes. No suspicious bony lesion is identified. Impression: Stable pulmonary nodules. No metastasis identified in abdomen or pelvis. Question mild diverticulitis at the junction of descendingand sigmoid colon, correlate clinically. Signed: Sophie Linares MDReport Verified Date/Time: 06/08/2020 08:34:22 Reading Location: [facility] C013X Ortho Consult Reading Room POCT-CREATININE 2020-06-07 15:24:00 Test Item Value Reference Range Interpretation Comments POC-CREATININE 0.7 mg/dL 0.6-1.3 : TESTED AT [facility] ([facility]) (test [address] [facility] code = 1859) [facility] 7 [id number]: Sleeve Turner/Techni vick ID = [id number] for Brina Dickeyra POC-EGFR 84 mL/min/1.73M2 ([facility]) (test code = 1860) RAD, BONE DENSITY [id number] 14:35:00Reason for Exam:->malignant neoplasm of overlapping sites of right breast in female, estrogen receptor positive; postmenopausal stateFINAL REPORT Exam: Bone mineral density study. History: Osteopenia. Comparison:None Discussion: Evaluation of the left hip and lumbar spine was performed utilizing DEXA Hologic bone densitometer. The study is technically adequate. Left hip total bone mineral density: 0.890gm/cm2,T-score is -0.4, Z-score is 0.8. Left hip femoral neck bone mineral density: 0.772gm/cm2, T-score is-0.7, Z-score is 0.8. Lumbar spine total bone mineral density:1.059gm/cm2, T-score is0.1, Z-score is1.8. Impression:1. Normal bone mineral density of the left hip, fracture risk is not increased.2. Normal bone mineral density of the lumbar spine, fracture risk is not increased. Least significant change (LSC) for bone mineral density as provided by chinese medicine practitioner is 0.023 g/cm2 for lumbar spine and 0.027 g/cm2 for total hip. 10 -year fracture risk per WHO Fracture Risk Assessment Tool (FRAX) for:Not reported because all T-scores at or above -1.0 The patient's fracture risk is compared to an age-matched control. Medical evaluation for secondary causes of low bone bone mineral density may be appropriate. Correlate clinically for the necessity and timing of the next bone mineral density study. Signed: Naif Rodriguez [facility] Verified Date/Time: 01/26/2020 14:35:52 CT, CHEST, WITH IV CONTRAST 2020-01-19 15:50:00FINAL REPORT TECHNIQUE: CT of the chest, abdomen, and pelvis WITH intravenous contrast and WITHOUT oral contrast. Dose modulation, iterative [...] axial image 37 measures 0.6 cm, previously 0.5cm.*A left lower lobe pulmonary nodule on axial image 74 measures 0.8 x 0.5 cm, previously 0.7 x 0.5cm.*A left lower lobe point nodule on axial [...] unremarkable. No biliary ductal dilatation.SPLEEN: No splenomegaly. Punctatecalcified granulomas in the spleen.PANCREAS: No focal masses or ductal dilatation. ADRENALS: No adrenal nodules.KIDNEYS/URETERS: No hydronephrosis, stones, or masses.PELVIC ORGANS/BLADDER: Unremarkable. PERITONEUM/RETROPERITONEUM: No free air or fluid.LYMPH NODES: No lymphadenopathy.VESSELS: Nonspecific, prominent left pelvic vasculature. GI TRACT: No distention or wall thickening. Mild diverticulosis of the sigmoid and left colon. The [...] the abdomen or pelvis. Signed: Laura Severino [facility] Verified Date/Time: 01/19/2020 15:50:49 Reading Location: [address] Consult Reading Room CT, ABDOMEN 2020-01-19 15:50:00FINAL REPORT TECHNIQUE: CT of the chest, abdomen, and pelvis WITH intravenous contrast and WITHOUT oral contrast. Dose modulation, iterative [...] axial image 37 measures 0.6 cm, previously 0.5cm.*A left lower lobe pulmonary nodule on axial image 74 measures 0.8 x 0.5 cm, previously 0.7 x 0.5cm.*A left lower lobe point nodule on axial [...] unremarkable. No biliary ductal dilatation.SPLEEN: No splenomegaly. Punctatecalcified granulomas in the spleen.PANCREAS: No focal masses or ductal dilatation. ADRENALS: No adrenal nodules.KIDNEYS/URETERS: No hydronephrosis, stones, or masses.PELVIC ORGANS/BLADDER: Unremarkable. PERITONEUM/RETROPERITONEUM: No free air or fluid.LYMPH NODES: No lymphadenopathy.VESSELS: Nonspecific, prominent left pelvic vasculature. GI TRACT: No distention or wall thickening. Mild diverticulosis of the sigmoid and left colon. The [...] the abdomen or pelvis. Signed: Laura Severino [facility] Verified Date/Time: 01/19/2020 15:50:49 Reading Location: [facility] B1 C013X [facility] Consult Reading Room CT, ABDOMEN 2019-06-09 14:16:00FINAL REPORT CT of [...] seen in the right apex. No mass lesionor airspace disease is noted. No bronchiectasis is present. No pleural effusion or pleural based mass is seen. Liver and spleen are normal in size. A 5 mm hypodense lesion seen in the segment 4 of the liver. Gallbladder is contracted. No gallstone or biliary dilatation is noted. Pancreas and adrenals a re unremarkable. Both kidneys are normal in size and functioning with bilateral excretion. No hydronephrosis, hydroureter, or urolithiasis is noted. The opacified small and large bowel are unremarkable. Appendix is normal in caliber. Uterus and ovaries are unremarkable. The urinary bladder is contracted. No mass, adenopathy or ascites is present in the abdomen or pelvis. No osteolytic or osteoblasticlesions seen in the dorsal spine, scapula, sternum, ribs, or pelvis. Impression: 1. Status post right mastectomy.2. Nodular lesions in the right upper and left lower lobe. Recommend follow-up with repeat CT of the chest in 6 months.3. Nonspecific subcentimeter hypodense lesion in the liver. Otherwise u nremarkable CT of the abdomen and pelvis. Signed: Virgilio Salgado [facility] Verified Date/Time: 06/09/2019 14:16:37 Reading Location: [address] Body Reading Room CT, CHEST, WITH [id number] 14:16:00FINAL REPORT CT of the Chest, abdomen [...] control, adjustment of the mA and/or kV accor ding to patient size and/or use of interactive [...] seen in the right apex. No mass lesionor airspace disease is noted. No bronchiectasis is [...] the abdomen or pelvis. No osteolytic or osteoblasticlesions seen in the dorsal spine, scapula, sternum, ribs, or pelvis. Impression: 1. Status post right mastectomy.2. Nodular lesions in the right upper and left lower lobe. Recommend follow-up with repeat CT of the chest in 6 months.3. Nonspecific subcentimeter hypodense lesion in the liver. Otherwise unremarkable CT of the abdomen and pelvis. Signed: Virgilio Salgado [facility] Verified Date/Time: 06/09/2019 14:16:37 Reading Location: [facility] B1 C013Y CT Body Reading Room TISSUE [id number] 13:19:00Surgical Pathology Report Case: [id number] Authorizing Provider: Nini Trejo, Collected: 05/13/2019 1219 Ordering Location: [facility] PERIOPERATIVE Received: 05/13/2019 1232 SERVICES Pathologist: Latesha Hernández MD Specimens: A) - Breast, Right, RIGHT MASTECTOMY WITH LOW AXILLARY NODE short stitch superior long lateral for margin B) - Lymph Node, [place], Right Axilla, Right sentinel node 325 (neoprobe) 6491 (sentimag) C) - Breast, Right, Right axilla non-sentinel node A. BREAST, RIGHT, MASTECTOMY WITH LOW AXILLARY NODE DISSECTION: - NO RESIDUAL CARCINOMA SEEN - TUMOR BED IDENTIFIED - ASSOCIATED WITH CALCIFICATIONS - INCLUDING STROMAL CALCIFICATIONS - AND OBLITERATED DUCTS WITH CALCIFICATIONS - BIOPSY SITE CHANGES (CLIP X 1) SEEN - COMPLETE PATHOLOGIC RESPONSE - USUALDUCTAL HYPERPLASIA, FOCAL - FOCAL COLUMNAR CELL CHANGES [...] - FOCAL FIBROSISC. LYMPH NODES, RIGHT AXILLA, NON- SENTINEL, AXILLARY DISSECTION; - SEVEN LYMPH NODES, NEGATIVE FOR CARCINOMA (0/7) - ONE WITH TREATMENT RELATED FIBROSIS Signing Pathologist Direct Phone Line: [phone] signed by Latesha Hernández MD on 05/20/2019 at 1:19 PMTUMOR STAGING (PATHOLOGY) S/P NEOADJUVANT THERAPYAnatomic site of tumor : Right breastHistologic type : No residual carcinomaHistologic grade : No residual carcinomaTumor size : No residual carcinomaPrimary tumor (T) : [id number] node (N) : [id number] grouping : complete pathologic responseMargins : Negative LYMPH NODE SUMMARYTotal # of sentinel lymph nodes : 1Total # of non- sentinel lymph nodes : 13Total # of positive sentinel lymph nodes : 0Total # of positive non-sentinel lymph nodes : 0INVASIVE CARCINOMA OFTHE BREAST: Resection (Breast.Invasive - All Specimens)8th Edition - Protocol posted: 2/27/2019CLINIC AL Clinical History: Prior presurgical (neoadjuvant) therapy for [...] of Lymph Nodes Examined: 14 Number of [place] Nodes Examined: 1 PATHOLOGIC STAGE CLASSIFICATION (pTNM, AJCC 8th Edition) TNM Descriptors: y (post-treatment) Primary Tumor (pT): pT0 Regional Lymph Nodes (pN): Category (pN): pN0 ADDITIONAL FINDINGS Additional Pathologic Findings: Usual ductal hyperplasia, intraductal papilloma, sclerosing adenosis A,C. 74392 x 1, 01632 x 1B. 37110 x 1Malignant neoplasm of right female breast, [...] in slice #9. The mass is located josefina fibrous possible tumor bed that measures 2.5 [...] is a coil clip associated with 1.5 cmlymph node that is grossly fibrotic. A Mervat Gold Letterer is also identified. Electric Frying Pan Repairer sections are submitted. Lymph nodes are submitted entirely.A1, desk representative sections of medial margin, perpendicular sections; A2, desk representative section of slice #4; A3, desk representative section of slice #5; A4, A5, desk representative sections of slice #6; A6, nipple; A7-A16, desk representative sections of slice #7 (A7 and A8 are mirror sections, A7 and A8 contain tumor); A16-A20, (A16 contains tumor); A26-A34, desk representative sections of slice #9 (A26 and A27 mirror sections, A26 and A27 contain tumor, A26 is associated with clip); A35-A41, desk representative sections of slice #10; A42 and A43, desk representative sections of slice #11; A44, desk representative section of slice #12; A45 and [...] Attached to the adipose tissue is a 0.6cm in greatest dimension, mims-pink, firm, possible lymph [...] no clips identified.The nodes are submitted in th eir entirety in cassette C1, two whole possible nodes; C2, one bisected possible node; C3, two wholepossible nodes; C4, two whole possible nodes. KM/Uriah. BREAST, RIGHT, MASTECTOMY: - MARGINS ARE NEGATIVE. SEPARATE CLIP AND MERVAT NEIGHBORHOOD AIDE IN AXILLARY TAILResults were reported by Dr. Hernández to Dr. rTejo at12:50 P.M. A to [facility], Department of Pathology, [address] [place] [id number], WUPV-GLUCOSE [id number] 15:09:00 Test Item Value Reference Range Interpretation Comments POC-GLUCOSE METER 166 mg/dL 70-110 H : Notified RN/MD: (MARLEN) (test code = TESTED AT [place] [address] 153) [facility], [address]: Sleeve Turner/Techni vick ID = [id number] for MARICRUZ LYNNRODOLFOTHEAA SENTINEL NODE INJECTION, [id number] 10:01:00Reason for exam:- >right breast cancerFINAL REPORT PROCEDURE: SENTINEL NODE LOCALIZATION - NON IMAGING INDICATION: Right breast cancer PROTOCOL: A total of 1.2 mCi of Tc-99m tilmanocept was injected in the right breastby the licensed nuclear operator. One aliquot was injected subcutaneously in the subareolar area, and one aliquot was injected intradermally at the 9 o'clock position. IMPRESSION: Radiopharmaceutical injection for intraoperative sentinel node localization. Signed: Colt Dee Verified Date/Time: 05/13/2019 10:01:55 Reading Location: [address] [place] [address] Reading Room POCT- GLUCOSE [id number] 09:23:00 Test Item Value Reference Range Interpretation Comments POC-GLUCOSE METER 110 mg/dL 70-110 : TESTED A [facility] 6720 ([facility]) (test code = DIOGO Avilez [facility], 1538) [address]: Sleeve Turner/Techni vick ID = [id number] for KAHLIL FITCH RAD, CHEST, 2 [id number] 16:23:00Reason for Exam:->coughFINAL REPORT EXAMINATION: RAD, CHEST, 2 VIEWS INDICATION: cough COMPARISON: None FINDINGS:TUBES and LINES: Left anterior chest port catheter LUNGS: Lungs are well inflated. Mild perihilar peribronchial hazy opacity could be due to bronchitis There is no evidence of pneumonia or pulmonary edema. PLEURA: No pleural effusion or pneumothorax. HEART AND MEDIASTINUM: The cardiomediastinal silhouette is unremarkable. BONES AND SOFT TISSUES: No acute osseous lesion. Soft tissues are unremarkable. UPPER ABDOMEN: No free air under the diaphragm. IMPRESSION: Mild perihilar peribronchial hazy opacity could be due to bronchitis Signed: Naif Rodriguez [facility] Verified Date/Time: 01/20/2019 1 6:23:52 POCT- GLUCOSE [id number] 07:34:00 Test Item Value Reference Range Interpretation Comments POC-GLUCOSE METER 99 mg/dL 70-110 TESTED AT [place] [address] ([facility]) (test code = DIOGO Avilez [facility] [address]38) ANG, CV ACCESS, [id number] 19:48:00Reason for Exam:->c50.811FINAL REPORT Left chest port insertion History: Right breast cancer. Modality:Sonography and fluoroscopy. Sedation: Versed 1.0 mg and fentanyl 50 mcg given intravenously for conscious sedation. Vital signs were monitored throughout the procedure by a nurse, and remained stable. Physician intra-service time was 20 minutes. Care Director Rn: Cameron Meléndez MD Ramp Jockey: OFELIA Joe Approach: Left external jugular vein Estimated blood loss: < 5 cc. Specimen: None. Fluoroscopy Time: 0.5 min.Reference Air Kerma (Ka, r): 2.7 mGy. Technique: Informed written consent wasobtained. Discussion of risks, benefits, and alternatives were made with the patient. The patient expressed understanding and agreed to proceed. A universal timeout was performed prior to starting theprocedure. All elements maximal sterile barrier technique was utilized for this procedure, includingutilization of sterile scrub solution for skin prep, a large sterile sheet to cover the areas of thepatient that were not prepped, and hand hygiene, [...] needle into the right atrium. A 4 Slovenian micropuncture sheath was placed. A subcutaneous tunnel and pocket were created in the left anterior chest wall by blunt dissection. The pocket was flushed with antibiotic solution. A 6F Bard port was placed within the pocket and the catheter brought through the tunnel. The catheter was cut at 25 centimeters. A peel-away sheathwas placed in the left external jugular vein and the catheter was advanced through the sheath, with its distal tip terminating in the cavoatrial junction. The peel-away sheath was removed. The port wasflushed and aspirated easily following placement. The skin incision was closed with 3-0 running subcuticular Monocryl and Steri-Strips. The small jugular incision site was closed using Steri-Strips. The patient tolerated the procedure well and left the department in the same condition. Results: Spot radiograph of the chest demonstrates the new left chest Port-A-Cath to lie in the expected position with its tip overlying the cavoatrial junction. Impression: Successful, uncomplicated placement of a left chest port. The port is ready for immediate use. Signed: Cameron Meléndez MDR[facility] Verified Date/Time: 11/25/2018 19:48:03 Reading Location: [place] [id number] Angio Body Reading Room Electronically signedby: CAMERON MELÉDNEZ on 11/25/2018 07:48 PMPROTHROMBIN TIME/[id number] 12:29:00 Test Item Value Reference Range Interpretation Comments PROTIME (BEAKER) (test code = 15.6 seconds 11.9-14.2 H 759) INR (BEAKER) (test code = 370) 1.3 <=5.9 Effective 11/20/2018: PT Reference Range ChangeNew: 11.9-14.2 Previous: 11.7- 14.7RECOMMENDED COUMADIN/WARFARIN INR THERAPY RANGESSTANDARD DOSE: 2.0-3.0 Includes: PROPHYLAXIS for venous thrombosis, systemic embolization; TREATMENT for venous thrombosis and/or pulmonary embolus.HIGH RISK: Target INR is 2.5-3.5 for patients wiht mechanical heart valves.[id number] 12:29:00 Test Item Value Reference Range Interpretation Comments PARTIAL THROMBOPLASTIN TIME 31.2 seconds 22.5-36.0 (BEAKER) (test code = 760) CBC W/PLT COUNT & AUTO [id number] 12:19:00 Test Item Value Reference Range Interpretation [...] = 2801) Urinalysis macro (dipstick) panel - [id number] 08:23:00 Test Item Value Reference Range Interpretation Comments Color Color (test code = Color light yellow Color) Color Appearance (test code = clear Color Appearance) Color Glucose (test code = Color negative Glucose) Color Bilirubin (test code = negative Color Bilirubin) Color Ketones (test code = Color negative Ketones) Color Specific [place] (test 1.020 code = Color Specific [place]) Color Blood (test code = Color negative Blood) Color PH (test code = Color PH) 5.5 Color Protein (test code = Color negative Protein) Color Urobilinogen (test code = 0.2 Color Urobilinogen) Color Nitrites (test code = negative Color Nitrites) Color Leukocytes (test code = negative Color Leukocytes) [facility]
[2022-12-31 14:43] LABS: Absolute Lymphocytes (CBC) 2.2 K/uL (0.7-4.9); Hematocrit 36.4 % (36.0-45.0); MCV 90.5 fL (80-100); MPV 6.9 fL (7.6-11.3); RBC Red Blood Cell Count 4.02 M/uL (3.86-4.86)
[2022-12-31 15:01] LABS: SARS-CoV-2 Antigen Rapid Res Negative (Negative)
[2022-12-31 15:03] LABS: Albumin 3.8 g/dL (3.4-5.0); Bilirubin Total 0.3 mg/dL (0.2-1.0); Potassium 4.1 mEq/L (3.5-5.1); Protein, Total 7.5 g/dL (6.4-8.2)
[2022-12-31 15:50] LABS: Specific Gravity > 1.030 (1.005-1.030); Urine Bilirubin NEGATIVE (Negative); Urine Blood Negative (Negative); Urine Clarity Clear (Clear); Urine Color Light-Yellow (Yellow); Urine Glucose NEGATIVE (Negative); Urine Protein NEGATIVE (Negative); Urine Urobilinogen Normal (Normal)
--- NOTE | 2022-12-31 15:55 | RAD REPORT ---
EXAM DESCRIPTION: CT - Abdomen Pelvis W Contrast - 12/31/2022 3:24 pm CLINICAL HISTORY: ABD PAIN COMPARISON: Abdomen Pelvis W Contrast dated 07/06/2017 TECHNIQUE: Thin cut axial CT imaging of the abdomen and pelvis was performed following intravenous a dministration of 90 mL Isovue 300. Multiplanar reformats were generated and reviewed. All CT scans are performed using dose optimization technique as appropriate and may include automated exposure control or mA/KV adjustment according to patient size. FINDINGS: No suspicious findings in the lung bases. The liver, spleen, and pancreas show no suspicious findings. Sub centimeter right liver lobe cyst, st able. Gallbladder and biliary tree are also without suspicious finding. Symmetric renal function is seen with no hydronephrosis or suspicious renal mass. No dilated bowel loops or bowel wall thickening. Elevated position of the cecum. Appendix is normal i n appearance. No free air, free fluid or inflammatory stranding. No hernia, mass or bulky lymphadenop athy. The urinary bladder is without significant finding. No suspicious bony findings. IMPRESSION: No acute intra-abdominal process.
--- NOTE | 2022-12-31 16:03 | EDPHYS ---
Physician Documentation [facility] Name: Jessica Bahena Age: 67 yrs Sex: Female : 1955 Arrival Date: 12/31/2022 Time: 13:38 Bed 17 Private MD: RAIN Physician Mehdi Rose HPI: 12/31 14:50 This 67 yrs old Female presents to ER via Ambulatory with complaints of Abdominal Pain, sb4 Flu Symptoms, Dizziness. 14:50 The patient presents with abdominal pain that is diffuse. Onset: The symptoms/episode sb4 began/occurred 2 week(s) ago. The symptoms do not radiate. Associated signs and symptoms: Pertinent positives: nausea, vomiting, Pertinent negatives: blood in stools, dysuria, fever, vomiting blood. The symptoms are described as burning. Modifying factors: The symptoms are alleviated by antacids, the symptoms are aggravated by food, work stress. Severity of pain: in the emergency department the pain has improved. The patient has experienced a previous episode. The patient has not recently seen a physician. patient presents with multiple complaints- generalized abdominal pain and is concerned about an ulcer/GI bleed/parasite/diverticulitis/covid. she already has a GI doctor in [facility] who is doing testing. Historical: - Allergies: 13:54 No Known Allergies; ap3 - PMHx: 13:54 breast cancer - tx at [facility]; Diabetes - NIDDM; High Cholesterol; Hyperlipidemia; ap3 Hypothyroidism; - PSHx: 13:54 section; hernia repair; right mastectomy; ap3 - Immunization history:: Client reports receiving the 2nd dose of the Covid vaccine. - Social history:: Smoking status: Patient/guardian denies using tobacco, but has a distant history of tobacco abuse. ROS: 14:50 Constitutional: Negative for fever, chills, and weight loss, Eyes: Negative for injury, sb4 pain, redness, and discharge, Cardiovascular: Negative for chest pain, palpitations, and edema, Respiratory: Negative for shortness of breath, cough, wheezing, and pleuritic chest pain, Back: Negative for injury and pain, MS/Extremity: Negative for injury and deformity, Skin: Negative for injury, rash, and discoloration. 14:50 Abdomen/GI: Positive for abdominal pain, nausea, vomiting, Negative for diarrhea, hematemesis, black/tarry stool, rectal bleeding. Exam: 14:50 Constitutional: This is a well developed, well nourished patient who is awake, alert, sb4 and in no acute distress. Head/Face: Normocephalic, atraumatic. Eyes: Extra-ocular motions intact. Periorbital areas with no swelling, redness, or edema. Cardiovascular: Regular rate and rhythm with a normal S1 and S2. Respiratory: Lungs have equal breath sounds bilaterally, clear to auscultation and percussion. No rales, rhonchi or wheezes noted. No increased work of breathing, no retractions or nasal flaring. Abdomen/GI: Soft, non-tender, no distension. Skin: Warm, dry with normal turgor. Normal color with no rashes, no lesions, and no evidence of cellulitis. MS/ Extremity: Pulses equal, no cyanosis. Neurovascular intact. Full, normal range of motion. Neuro: Awake and alert, GCS 15, oriented to person, place, time, and situation. Cranial nerves II-XII grossly intact. Motor strength 5/5 in all extremities. Sensory grossly intact. Cerebellar exam normal. Normal gait. 14:50 Psych: tangential. Vital Signs: 13:51 BP 140 / 71; Pulse 76; Resp 16; Temp 98.2(O); Pulse Ox 100% on R/A; Weight 90.72 kg; ap3 Height 5 ft. 1 in. ; Pain 2/10; 16:37 BP 122 / 63; Pulse 72; Resp 16; Pulse Ox 100% on R/A; Pain 0/10; cm10 13:51 Body Mass Index 37.79 (90.72 kg, 154.94 cm) ap3 13:51 Pain Scale: Adult ap3 16:37 Pain Scale: Adult cm10 MDM: 13:42 Patient medically screened. sb4 14:50 Differential diagnosis: appendicitis, bowel obstruction, cholecystitis, Cholelithiasis, sb4 diverticulitis, gastritis, gastroesophageal reflux disease, GI Bleed, non-specific abd pain, pancreatitis, Peptic Ulcer Disease, Perf. Duodenal Ulcer, Perf. Gastric Ulcer, Peritonitis, Pyelonephritis, urinary tract infection. 16:01 Data reviewed: vital signs, nurses notes, lab test result(s), radiologic studies, CT sb4 scan, and as a result, I will discharge patient. I considered the following discharge prescriptions or medication management in the emergency department Pain Medications: At this time, prescription pain medications are not recommended. Care significantly affected by the following chronic conditions: Diabetes. Counseling: I had a detailed discussion with the patient and/or guardian regarding: the historical points, exam findings, and any diagnostic results supporting the discharge/admit diagnosis, lab results, radiology results, the need for outpatient follow up, a office machine servicer, to return to the emergency department if symptoms worsen or persist or if there are any questions or concerns that arise at home. ED course: Instructed patient to follow up with GI as her symptoms are likely secondary to GERD/possible developing ulcer.. 12/31 14:23 Order name: CBC with Diff; Complete Time: 15:16 sb4 12/31 14:23 Order name: CMP; Complete Time: 15:06 sb4 12/31 14:23 Order name: Lipase; Complete Time: 15:06 sb4 12/31 14:23 Order name: Urinalysis w/ reflexes; Complete Time: 15:51 sb4 12/31 14:23 Order name: SARS-COV-2 Antigen Rapid; Complete Time: 15:02 sb4 12/31 14:23 Order name: Flu; Complete Time: 15:02 sb4 12/31 14:23 Order name: Type And Screen sb4 12/31 14:23 Order name: CT Abd/Pelvis - IV Contrast Only; Complete Time: 15:57 sb4 12/31 14:23 Order name: IV Saline Lock; Complete Time: 14:33 sb4 12/31 14:23 Order name: Labs collected and sent; Complete Time: 14:33 sb4 Administered Medications: No medications were administered Disposition Summary: 12/31/22 16:03 Discharge Ordered Location: Home sb4 Problem: an ongoing problem sb4 Symptoms: have improved sb4 Condition: Stable sb4 Diagnosis - Gastro-esophageal reflux disease without esophagitis sb4 Followup: sb4 - With: Gus Sethi MD - When: As needed - Reason: Recheck today's complaints, Continuance of care, Re-evaluation by your physician Discharge Instructions: - Discharge Summary Sheet sb4 - Food Choices for Gastroesophageal Reflux Disease, Adult sb4 - Gastroesophageal Reflux Disease, Adult, [id number] sb4 Forms: - Medication Reconciliation Form sb4 - Thank You Letter sb4 - Antibiotic Education sb4 - Prescription Opioid Use sb4 - [email or web address] sb4 - Work release form cm10 Signatures: Dispatcher [employer] Archana Rangel, BEATRIS RN ap3 Gissell Garza PA-C PA-C sb4
--- NOTE | 2022-12-31 16:03 | ER ---
Nurse's Notes [facility] Name: Jessica Bahena Age: 67 yrs Sex: Female : 1955 Arrival Date: 12/31/2022 Time: 13:38 Bed 17 Private MD: Diagnosis: Gastro-esophageal reflux disease without esophagitis Presentation: 12/31 13:51 Chief complaint: Patient states: ABD pain x 2 days; has been seeing GI in doctor in ap3 [facility]; stated "I have parasites, I've gone to the restroom and I can see them" but has not notified the GI provider. Coronavirus screen: Vaccine status: Patient reports receiving the 2nd dose of the covid vaccine. Client denies travel out of the [place] in the last 14 days. Ebola Screen: Patient negative for fever greater than or equal to 101.5 degrees Fahrenheit, and additional compatible Ebola Virus Disease symptoms Patient denies exposure to infectious person. Patient denies travel to an Ebola-affected area in the 21 days before illness onset. Initial Sepsis Screen: Does the patient meet any 2 criteria? No. Patient's initial sepsis screen is negative. Does the patient have a suspected source of infection? No. Patient's initial sepsis screen is negative. Risk Assessment: Do you want to hurt yourself or someone else? Patient reports no desire to harm self or others. Onset of symptoms was December 29, 2022. 13:51 Method Of Arrival: Ambulatory ap3 13:51 Acuity: STAS 3 ap3 Triage Assessment: 13:54 General: Appears in no apparent distress. uncomfortable, Behavior is cooperative. Pain: ap3 Complains of pain in right lower quadrant and left lower quadrant Pain currently is 2 out of 10 on a pain scale. GI: Abdomen is round Reports nausea. Derm: Skin is pale. Historical: - Allergies: 13:54 No Known Allergies; ap3 - PMHx: 13:54 breast cancer - tx at [facility]; Diabetes - NIDDM; High Cholesterol; Hyperlipidemia; ap3 Hypothyroidism; - PSHx: 13:54 section; hernia repair; right mastectomy; ap3 - Immunization history:: Client reports receiving the 2nd dose of the Covid vaccine. - Social history:: Smoking status: Patient/guardian denies using tobacco, but has a distant history of tobacco abuse. Screenin:33 [facility] ED Fall Risk Assessment (Adult) History of falling in the last 3 months, kc6 including since admission No falls in past 3 months (0 pts) Confusion or Disorientation No (0 pts) Intoxicated or Sedated No (0 pts) Impaired Gait No (0 pts) Mobility Assist Device Used No (0 pt) Altered Elimination No (0 pt) Score/Fall Risk Level 0 - 2 = Low Risk Oriented to surroundings, Maintained a safe environment, Educated pt \\T\\ family on fall prevention, incl call for assistance when getting out of bed, Assessed \\T\\ reinforced patient's understanding of fall precautions, Hourly rounding (assess needs \\T\\ fall precautionary measures) done. Abuse screen: Denies threats or abuse. Denies injuries from another. Nutritional screening: No deficits noted. Tuberculosis screening: No symptoms or risk factors identified. Assessment: 14:34 General: Appears in no apparent distress. comfortable, Behavior is calm, cooperative, kc6 appropriate for age. Pain: Complains of pain in left lower quadrant and right lower quadrant. Neuro: Botello Agitation-Sedation Scale (RASS): 0 - Alert and Calm Level of Consciousness is awake, alert, obeys commands, Oriented to person, place, time, situation, Appropriate for age. Cardiovascular: Capillary refill < 3 seconds. Respiratory: Airway is patent Trachea midline Respiratory effort is even, unlabored, Respiratory pattern is regular, symmetrical. GI: Abdomen is round non-distended, Bowel sounds present X 4 quads. Abd is soft X 4 quads Abdomen is tender to palpation in left lower quadrant and right lower quadrant Patient currently denies bloody stool, diarrhea, nausea, vomiting. : No signs and/or symptoms were reported regarding the genitourinary system. EENT: No signs and/or symptoms were reported regarding the EENT system. Derm: Skin is intact, is healthy with good turgor, Skin is dry, Skin is pale, Skin temperature is warm. Musculoskeletal: No signs and/or symptoms reported regarding the musculoskeletal system. Circulation, motion, and sensation intact. Capillary refill < 3 seconds, Range of motion: intact in all extremities. 15:44 Reassessment: No changes from previously documented assessment. Patient and/or family cm10 updated on plan of care and expected duration. Pain level reassessed. Patient is alert, oriented x 3, equal unlabored respirations, skin warm/dry/pink. Patient states feeling better. Patient states symptoms have improved. Vital Signs: 13:51 BP 140 / 71; Pulse 76; Resp 16; Temp 98.2(O); Pulse Ox 100% on R/A; Weight 90.72 kg; ap3 Height 5 ft. 1 in. ; Pain 2/10; 16:37 BP 122 / 63; Pulse 72; Resp 16; Pulse Ox 100% on R/A; Pain 0/10; cm10 13:51 Body Mass Index 37.79 (90.72 kg, 154.94 cm) ap3 13:51 Pain Scale: Adult ap3 16:37 Pain Scale: Adult cm10 ED Course: 13:41 Patient arrived in ED. im 13:42 Gissell Garza PA-C is PHCP. sb4 13:42 Mehdi Rose MD is Attending Physician. sb4 13:54 Triage completed. ap3 13:54 Arm band placed on. ap3 13:57 Dahiana Orona RN is Primary Nurse. kc6 14:33 Inserted saline lock: 22 gauge in left antecubital area, using aseptic technique. Blood kc6 collected. 14:34 Patient has correct armband on for positive identification. Bed in low position. Call kc6 light in reach. Side rails up X 1. Adult w/ patient. 15:08 Primary Nurse role handed off by Dahiana Orona, BEATRIS cm10 15:08 Miri Pruett, RN is Primary Nurse. cm10 15:[address] via wheelchair. cm10 15:26 CT Abd/Pelvis - IV Contrast Only In Process Unspecified. EDMS 15:44 Urinalysis w/ reflexes Sent. cm10 16:02 Gus Sethi MD is Referral Physician. sb4 16:37 No provider procedures requiring assistance completed. IV discontinued, intact, cm10 bleeding controlled, No redness/swelling at site. Pressure dressing applied. Administered Medications: No medications were administered Medication: 16:37 VIS not applicable for this client. cm10 Outcome: 16:03 Discharge ordered by . sb4 16:37 Discharged to home cm10 16:37 Condition: good 16:37 Discharge instructions given to patient, Instructed on discharge instructions, follow up and referral plans. Demonstrated understanding of instructions, follow-up care. 16:38 Patient left the ED. cm10 Signatures: Dispatcher [employer] EDMS Prokisch, Archana, RN RN ap3 Dahiana Orona, RN RN kc6 Gissell Garza PA-C PAHarpreet sb4 Paige Walker Clarissa, RN RN cm10
[2022-12-31 16:42] VITALS: TEMP 98.2; O2SAT 100
[2022-12-31 16:44] VITALS: BP 122/63
== END 2022-12-31 16:38 | disposition home or self-care (01) ==
LOC: ER 13:38
DX: K21.9 Gastro-esophageal reflux disease without esophagitis (principal); R11.2 Nausea with vomiting, unspecified; Z20.822 Contact with and (suspected) exposure to COVID-19; E11.9 Type 2 diabetes mellitus without complications; Z90.11 Acquired absence of right breast and nipple
CPT/HCPCS: 85025; 36415; 86900; 86850; 86901; 81003; 83690; 80053; 87804 ×2; 74177; 99284; 87811; Q9967

== ENCOUNTER 2024-04-25 15:20 | Emergency (ER) | payer OTHER ==
--- NOTE | 2024-04-25 16:54 | ER ---
Nurse's Notes [facility] Name: Jessica Bahena Age: 68 yrs Sex: Female : 1955 Arrival Date: 04/25/2024 Time: 15:20 Bed DX4 Private MD: Diagnosis: Nasal congestion Presentation: 04/25 15:49 Chief complaint: Chief complaint: Patient states: sinus pressure and headache that aa5 began 1 month ago, pt states "I just need antibiotics". 15:49 Acuity: STAS 3 aa5 15:49 Coronavirus screen: At this time, the client does not indicate any symptoms associated aa5 with coronavirus-19. Ebola Screen: Patient denies travel to an Ebola-affected area in the 21 days before illness onset. Initial Sepsis Screen: Does the patient meet any 2 criteria? No. Patient's initial sepsis screen is negative. Does the patient have a suspected source of infection? No. Patient's initial sepsis screen is negative. Risk Assessment: Do you want to hurt yourself or someone else? Patient reports no desire to harm self or others. Onset of symptoms was March 2024. 15:49 Method Of Arrival: Ambulatory aa5 Historical: - Allergies: 15:49 No Known Allergies; aa5 - PMHx: 15:49 breast cancer - tx at [facility]; Diabetes - NIDDM; High Cholesterol; Hyperlipidemia; aa5 Hypothyroidism; GI bleed (Unknown); Diverticulitis; Duodenal ulcer; - PSHx: 15:49 section; hernia repair; right mastectomy; aa5 - Immunization history:: Adult Immunizations unknown. - Infectious Disease History:: Denies. - Social history:: Smoking status: Patient denies any tobacco usage or history of. Assessment: 17:02 Reassessment: Patient is alert, oriented x 3, equal unlabored respirations, skin aa5 warm/dry/pink. Vital Signs: 15:49 BP 144 / 66; Pulse 83; Resp 18 S; Temp 98.5(O); Pulse Ox 98% on R/A; Weight 92.99 kg aa5 (R); Height 5 ft. 0 in. (R); 15:49 Body Mass Index 40.04 (92.99 kg, 152.4 cm) aa5 ED Course: 15:22 Patient arrived in ED. im 15:25 Lynnette Talbot MD is Attending Physician. gb1 15:49 Arm band placed on. aa5 16:00 Triage completed. aa5 17:03 No provider procedures requiring assistance completed. Patient did not have IV access aa5 during this emergency room visit. Administered Medications: No medications were administered Outcome: 16:53 Discharge ordered by . gb1 17:02 Discharged to home ambulatory, aa5 17:02 Condition: stable 17:02 Discharge instructions given to patient, Instructed on discharge instructions, follow up and referral plans. Demonstrated understanding of instructions, follow-up care, Pt instructed to use Nasonex [id number] by Dr. Talbot. 17:03 Patient left the ED. aa5 Signatures: Candida Barnes RN RN aa5 Paige Walker Lynnette Talbot MD MD gb1 Corrections: (The following items were deleted from the chart) 16:00 15:49 Chief complaint: aa5 aa5 16:01 15:49 BP 144 / 66; Pulse 83bpm; Resp 18bpm; Spontaneous; Pulse Ox 98% RA; Temp 98.5F aa5 Oral; aa5
--- NOTE | 2024-04-25 17:04 | EDPHYS ---
Physician Documentation [facility] Name: Jessica Bahena Age: 68 yrs Sex: Female : 1955 Arrival Date: 04/25/2024 Time: 15:20 Bed DX4 Private MD: ED Physician Lynnette Talbot HPI: 04/25 16:57 This 68 yrs old Female presents to ER via Ambulatory with complaints of Sinus gb1 Congestion. Historical: - Allergies: 15:49 No Known Allergies; aa5 - PMHx: 15:49 breast cancer - tx at [facility] [place]; Diabetes - NIDDM; High Cholesterol; Hyperlipidemia; aa5 Hypothyroidism; GI bleed (Unknown); Diverticulitis; Duodenal ulcer; - PSHx: 15:49 section; hernia repair; right mastectomy; aa5 - Immunization history:: Adult Immunizations unknown. - Infectious Disease History:: Denies. - Social history:: Smoking status: Patient denies any tobacco usage or history of. Exam: 16:57 Constitutional: This is a well developed, well nourished patient who is awake, alert, gb1 and in no acute distress. Head/Face: Normocephalic, atraumatic. Eyes: Pupils equal round and reactive to light, extra-ocular motions intact. Lids and lashes normal. Conjunctiva and sclera are non-icteric and not injected. Cornea within normal limits. Periorbital areas with no swelling, redness, or edema. ENT: Nares patent. No nasal discharge, no septal abnormalities noted. Tympanic membranes are normal and external auditory canals are clear. Oropharynx with no redness, swelling, or masses, exudates, or evidence of obstruction, uvula midline. Mucous membranes moist. Neck: Trachea midline, no thyromegaly or masses palpated, and no cervical lymphadenopathy. Supple, full range of motion without nuchal rigidity, or vertebral point tenderness. No Meningismus. Chest/axilla: Normal chest wall appearance and motion. Nontender with no deformity. No lesions are appreciated. Cardiovascular: Regular rate and rhythm with a normal S1 and S2. No gallops, murmurs, or rubs. Normal PMI, no JVD. No pulse deficits. Respiratory: Lungs have equal breath sounds bilaterally, clear to auscultation and percussion. No rales, rhonchi or wheezes noted. No increased work of breathing, no retractions or nasal flaring. Abdomen/GI: Soft, non-tender, with normal bowel sounds. No distension or tympany. No guarding or rebound. No evidence of tenderness throughout. Skin: Warm, dry with normal turgor. Normal color with no rashes, no lesions, and no evidence of cellulitis. MS/ Extremity: Pulses equal, no cyanosis. Neurovascular intact. Full, normal range of motion. Neuro: Awake and alert, GCS 15, oriented to person, place, time, and situation. Cranial nerves II-XII grossly intact. Motor strength 5/5 in all extremities. Sensory grossly intact. Cerebellar exam normal. Normal gait. Vital Signs: 15:49 BP 144 / 66; Pulse 83; Resp 18 S; Temp 98.5(O); Pulse Ox 98% on R/A; Weight 92.99 kg aa5 (R); Height 5 ft. 0 in. (R); 15:49 Body Mass Index 40.04 (92.99 kg, 152.4 cm) aa5 MDM: 16:10 Medical Screening Exam initiated gb1 16:57 Differential Diagnosis: Upper Respiratory Infection Sinusitis Allergic Rhinitis Viral gb1 Syndrome. Administered Medications: No medications were administered Disposition Summary: 04/25/24 16:53 Discharge Ordered Notes: Location: Home gb1 Condition: Stable gb1 Diagnosis - Nasal congestion gb1 Followup: gb1 - With: Private Physician - When: As needed - Reason: Re-evaluation by your physician Discharge Instructions: - Discharge Summary Sheet gb1 - Allergic Rhinitis, Adult gb1 - Postnasal Drip gb1 Forms: - Work release form me1 - Medication Reconciliation Form gb1 - Antibiotic Education gb1 - Prescription Opioid Use gb1 - Patient Portal Instructions gb1 - Leadership Thank You Letter gb1 Signatures: Candida Barnes, RN RN aa5 Lynnette Talbot MD MD gb1
[2024-04-25 17:27] VITALS: BP 144/66; TEMP 98.5; O2SAT 98
== END 2024-04-25 17:03 | disposition home or self-care (01) ==
LOC: ER 15:20
DX: R09.81 Nasal congestion (principal)
CPT/HCPCS: 99282